=== PATIENT | male | born 1975 | race Caucasian/White ===

== ENCOUNTER 2025-03-01 16:49 | Emergency (ER) | payer BC, SELFPAY ==
[2025-03-01] VITALS (8 sets, daily range): BP systolic 170–241; BP diastolic 69–116; PULSE 76–101; RESP 16–20; TEMP 36.1–36.6; O2SAT 97–99; BMI 34.9
--- NOTE | 2025-03-01 17:06 | EX.ED.DYSGE1 ---
HPI History of Present Illness Chief Complaint: Hypertension Informant: patient Onset/Context/Timing Onset: Month(s) Context: Gradual Onset Timing: Continuous Quality: Dull, aching Location: Occiput and neck Worsened by: Nothing Relieved by: Drinking alcohol Narrative Narrative: Patient presents with headache and elevated blood pressure that was noticed today. Patient saw his sleep doctor who noticed his blood pressure was elevated to 230/130. Patient states that 2 weeks ago he had an episode where he had a black spot in his central vision of his right eye. Patient states that his right eye is still somewhat blurry but he is able to see everything. Patient admits to an occipital headache. Patient states it is dull and aching. Patient states it goes down into his neck. Patient also admits to some paresthesias and tingling into his toes on his feet bilaterally. Patient denies any weakness. [facility] Medical History (Updated 03/01/25 @ 21:[address] Eddy Escobar DO) Hypertension Diabetes Medical History no medical history no medical history Allergy/AdvReac Type Severity Reaction Status Date / Time No Known Allergies Allergy Verified 03/01/25 16:50 Surgical History S/P tendon repair Status post ORIF of fracture of ankle Social History Smoking Status: Never smoker ROS ROS ED Constitutional Constitutional ED: Denies chills or fever(s) Eyes Eyes: Reports blurry vision right and change in vision right ENT ENT ED: Denies rhinorrhea or sore throat Cardiovascular Cardiovascular: Denies chest pain or palpitations Respiratory/Chest Respiratory/Chest: Denies cough or dyspnea Gastrointestinal Gastrointestinal: Denies nausea or vomiting Genitourinary Genitourinary ED: Denies dysuria or hematuria Musculoskeletal Musculoskeletal: Reports neck pain; Denies back pain Integumentary Denies abscess or rash Neurologic Neurologic: Reports headache(s) and paresthesias RLE (Toes) and LLE (Toes); Denies weakness Allergic/Immunologic Allergic/Immunologic ED: Denies mouth swelling or urticaria EXAM Physical Exam Const Vital Signs: 03/01/25 16:50 03/01/25 17:55 03/01/25 18:00 Temperature 96.9 F L Temperature Source Temporal Pulse Rate 101 H 91 88 Respiratory Rate 20 H 16 16 Respiratory Effort Respiratory Pattern Blood Pressure 241/116 H 195/85 H 195/98 H Blood Pressure Mean 157 121 130 Pulse Ox 99 99 98 Oxygen Delivery Method Room Air Room Air Room Air 03/01/25 19:00 03/01/25 19:03 03/01/25 20:00 Temperature Temperature Source Pulse Rate 76 80 Respiratory Rate 18 16 Respiratory Effort Normal Respiratory Pattern Normal Blood Pressure 189/69 H 185/97 H Blood Pressure Mean 109 126 Pulse Ox 97 99 Oxygen Delivery Method Room Air Room Air 03/01/25 20:34 Temperature Temperature Source Pulse Rate Respiratory Rate Respiratory Effort Respiratory Pattern Blood Pressure 179/96 H Blood Pressure Mean 123 Pulse Ox Oxygen Delivery Method Positive well nourished and well developed Constitutional Narrative: BMI is 35.0. General Appearance ED: well developed and NAD HEENT Reports moist mucous membranes Neck supple and no JVD Resp normal respiratory effort and clear to auscultation bilaterally Cardio regular rate and regular rhythm GI non-tender and non-distended Palpation: soft Extremity normal to inspection General Extremety ED: Negative for edema or tenderness General Extremity: Negative for edema Neuro oriented x3, CN's II-XII intact bilaterally and no sensory deficits noted Sensorium / Orientation: alert Motor Exam: strength 5/5 throughout Psych mental status grossly normal MDM MDM MDM Narrative Medical decision making narrative: Differential diagnosis includes hypertensive emergency, hypertensive urgency, uncontrolled hypertension, electrolyte abnormality, cardiac dysrhythmia, cardiac ischemia, acute kidney injury, and anxiety. EKG will be obtained to assess for cardiac dysrhythmia and cardiac ischemia. Chest x-ray will be obtained to assess for pneumonia, bronchitis, and widened mediastinum. CBC will be obtained to assess for leukocytosis and anemia. Basic metabolic profile will be obtained to assess for electrolyte abnormality or renal function. High-sensitivity troponin will be obtained to assess for cardiac ischemia. Lab Data Attestation: I reviewed the patient's lab results. Lab results narrative: CBC was reviewed and was within normal limits. Basic metabolic profile was reviewed. Glucose was mildly elevated at 175. The remainder is within normal limits. Initial high-sensitivity troponin was reviewed and was normal at 18. 2-hour repeat high-sensitivity troponin was reviewed and was also normal at 18. Labs: Laboratory Results - last 24 hr 03/01/25 03/01/25 17:20 18:53 WBC 9.9 RBC 5.72 Hgb 16.1 Hct 46.9 MCV 82.0 MCH 28.1 MCHC 34.3 RDW Std Deviation 38.9 RDW Coeff of Elsa 13.1 Plt Count 260 MPV 11.1 Immature Gran % (Auto) 0.300 Neut % (Auto) 65.3 Lymph % (Auto) 25.3 [place] % (Auto) 6.5 Eos % (Auto) 1.9 Baso % (Auto) 0.7 Absolute Neuts (auto) 6.4 Absolute Lymphs (auto) 2.49 Nucleated RBC % 0 Sodium 135 Potassium 3.7 Chloride 99 Carbon Dioxide 22.5 Anion Gap 13 BUN 18 Creatinine 0.97 Estim Creat Clear Calc 119.02 Est GFR (MDRD) Non-Af 95 BUN/Creatinine Ratio 19.0 Glucose 175 H Calcium 9.1 Troponin T High Sens 18 Troponin T Hi Sens 2 Hr 18 Radiography Chest X-Ray - ED: 2 View, Read by ED Physician, Read by Radiologist and No Acute Disease Diagnostic Testing: Clinical Impression(s) from Imaging Studies Brain CT 03/01/25 17:12 IMPRESSION: No acute intracranial abnormality. Reading Location: [facility] Chest X-Ray 03/01/25 17:45 IMPRESSION: Mild bilateral pulmonary vascular congestion. Reading Location: [facility] CT scan of the brain was obtained. There is no acute intracranial abnormality. This was interpreted by the radiologist and was also independently reviewed by myself. PA and lateral chest x-ray was obtained. There are 2 views. On my independent interpretation, lung salas shows mild pulmonary vascular congestion. There is normal cardiac silhouette. Bony thorax is normal. There is no acute process noted. Radiologist also interpreted the x-ray and agrees. EKG Initial EKG: Attestation: I personally reviewed and interpreted this EKG as follows: Interpretation: Sinus Rhythm (87) and No Acute Injury Pattern Comments: EKG was obtained. On my independent interpretation, it showed a normal sinus rhythm with a rate of 87. CA interval, QRS interval, and QTc intervals were all normal. [place] was normal. There are no acute ST or T wave changes. Prior EKG tracings: not available for review Prior: No Prior Treatment and Re-Evaluation :: Patient was given a dose of labetalol here. Patient's blood pressure improved to 185/97. Patient given a dose of clonidine. Patient's blood pressure improved to 179/96. Patient was advised of his findings. Patient states he has an appointment with his primary care physician tomorrow morning at 7:50 AM. Since he has an appointment with his primary care physician tomorrow morning, patient will not be given any prescriptions for antihypertensives tonight. Patient was instructed to return if worse in any way. Patient understood and was agreeable with plan. All questions were answered. Discharge Plan Triage Chief Complaint: Hypertension ED Provider: Eddy Escobar Dx/Rx/DC Orders Clinical Impression: Hypertension, Tobacco use disorder Instructions: ED High Blood Pressure Hypertension Primary Care Provider: Derick Montes Referrals: Derick Montes MD [Primary Care Provider, Family Practice] - Keep Kim appointment Print Language: [place] Disposition Disposition: Home, Self Care
--- NOTE | 2025-03-01 17:12 | CT_ITS ---
PROCEDURE: BRAIN/HEAD WITHOUT CONTRAST 03/01/2025 REASON FOR EXAM: HYPERTENSION TECHNIQUE: Procedure Code: CTBR Modality: CT Procedure: BRAIN/HEAD WITHOUT CONTRAST Coronal and Sagittal reconstruction series were provided. One or more dose reduction techniques were used (e.g., Automated exposure control, adjustment of the mA and/or kV according to patient size, use of iterative reconstruction technique. FINDINGS: The ventricles are normal in size and midline in position. No evidence acute hemorrhage or infarction. No extra-axial blood or fluid collections. The paranasal sinuses and mastoid air cells are clear. Calvarial vault and skull base are intact. CT/Brain/Head without Contrast IMPRESSION: No acute intracranial abnormality. Reading Location: [id number]
--- NOTE | 2025-03-01 17:13 | EKG12_ITS ---
Test Reason : HTN Blood Pressure : */* mmHG Vent. Rate : 87 BPM Atrial Rate : 87 BPM P-R Int : 156 ms QRS Dur : 106 ms QT Int : 390 ms P-R-T Axes : 30 12 82 degrees QTcB Int : 469 ms Normal sinus rhythm Cannot rule out Inferior infarct , age undetermined Abnormal ECG Confirmed by YORDAN LÓPEZ, NIURKA ([id number]), assistant production editor TARAH VELEZ ([id number]) on 03/05/2025 6:18:36 AM Referred By: Confirmed By: NIURKA FARR MD
[2025-03-01 17:30] LABS: Hematocrit 46.9 % (40-54); Hemoglobin 16.1 g/dL (13.0-16.5); Immature Granulocytes Count 0.030 X10^3/uL (0.0-0.0); Mean Corp Hgb Conc 34.3 g/dL (32-36); Mean Corpuscular Volume 82.0 fL (80-94); Mean Platelet Vol. 11.1 fl (6.2-12.0); NRBC Flagged by Analyzer 0 % (0-5); Platelet Count 260 K/mm3 (150-450); RBC Distribution Width CV 13.1 % (11.6-14.6); RBC Distribution Width SD 38.9 fl (35.1-43.9); Red Blood Count 5.72 M/mm3 (4.6-6.2); White Blood Count 9.9 K/mm3 (4.4-11.0)
--- NOTE | 2025-03-01 17:45 | RAD_ITS ---
PROCEDURE: CHEST PA AND LATERAL 03/01/2025 REASON FOR EXAM: HYPERTENSION TECHNIQUE: Procedure Code: RADCXR Modality: DX Procedure: CHEST PA AND LATERAL COMPARISON: None FINDINGS: Hardware: Monitoring electrodes overlying chest wall. Heart: Heart size is mildly enlarged. Atherosclerotic calcification of aortic arch. Mediastinum: The mediastinal contour is unremarkable. Lungs: Bibasilar atelectasis. Mild bilateral pulmonary vascular congestion. Bones: Unremarkable RAD/Chest PA and Lateral IMPRESSION: Mild bilateral pulmonary vascular congestion. Reading Location: [id number]
[2025-03-01 17:55] LABS: Anion Gap 13 (5-15); BUN 18 mg/dL (4-19); BUN/Creat Ratio 19.0 RATIO (10-20); Calcium,Total 9.1 mg/dL (7.6-11.0); Carbon Dioxide 22.5 mmol/L (21.0-32.0); Chloride 99 mmol/L (98-108); Estimated Creatinine Clearance 119.02 ml/min (50-250); Glucose 175 mg/dL (70-99); Potassium 3.7 mmol/L (3.3-5.1)
[2025-03-01 18:13] LABS: Troponin T High Sensitivity 18 ng/L (<=22)
--- NOTE | 2025-03-01 19:06 | ED.RN ---
Pt reports he has a history of hypertension and diabetes. States hypertension had resolved after weight loss. He has not checked his BP at home however we went to the doctor today and he was hypertensive. Pt states they told him you need to go to the ED or we are going to call an ambulance
[2025-03-01 19:42] LABS: Troponin T High Sens 2 HR 18 ng/L (<=22)
== END 2025-03-01 21:43 | disposition home or self-care (01) ==
PROVIDERS: Emergency Provider Emergency Medicine; PCP Family Medicine; Visit Provider Emergency Medicine
DX: I10 Essential (primary) hypertension (principal); E11.9 Type 2 diabetes mellitus without complications
CPT/HCPCS: 70450; 71046; 80048; 84484; 85025; 93005; 96374; 99285; A4216

== ENCOUNTER → 2025-03-02 | Outpatient (CLI) | payer BC, SELFPAY ==
[2025-03-02 08:56] LABS: Mucous, Urine 0 SEEN /hpf (<or=2+); Red Blood Cells-Urine 0 SEEN /hpf (0-5); Squamous Epithelial Cells - UA 0 SEEN /hpf (0-5)
[2025-03-02 10:36] LABS: Color, Urine Yellow (Yellow); Glucose, Dipstick 50 mg/dl (Normal); Ketone-Dipstick 15 mg/dl (Negative); Leukocyte Esterase-Dipstick Negative /ul (Negative); Nitrite-Dipstick Negative (Negative); Occult Blood-Urine Negative /ul (Negative); Protein-Dipstick 30 mg/dl (Negative); Specific Gravity, Urine 1.020 (1.002-1.030); Urine Bilirubin Dipstick Negative (Negative)
[2025-03-02 11:14] LABS: AST(SGOT) 21 U/L (<=37); Alanine Aminotransfer ALT/SGPT 30 U/L (<=46); Albumin, Serum 4.4 g/dL (3.5-5.0); Alkaline Phosphatase 62 U/L (40-129); Anion Gap 13 (5-15); BUN 14 mg/dL (4-19); BUN/Creat Ratio 14.8 RATIO (10-20); Calcium,Total 9.4 mg/dL (7.6-11.0); Carbon Dioxide 24.9 mmol/L (21.0-32.0); Chloride 99 mmol/L (98-108); Cholesterol 186 mg/dL (<=200); Globulin 3.2 g/dL (2.2-4.2); Glucose 210 mg/dL (70-99); Low Density Lipoprotein Calc. 116 mg/dL; Magnesium 2.3 mg/dL (1.5-2.2); Potassium 4.3 mmol/L (3.3-5.1); Triglycerides 103 mg/dL; Very Low Density Lipoprotein 21 mg/dL (5-40); cholesterol:hdl ratio screen 3.76
== END | disposition home or self-care (01) ==
LOC: MFPLAB 08:53
PROVIDERS: PCP Family Medicine; Visit Provider Family Medicine
DX: R73.09 Other abnormal glucose (principal); I10 Essential (primary) hypertension; E04.1 Nontoxic single thyroid nodule
CPT/HCPCS: 36415; 80053; 80061; 81001; 83036; 83735; 84439; 84443; 86376; 86800

== ENCOUNTER → 2025-03-09 | Outpatient (CLI) | payer BC, SELFPAY ==
[2025-03-09 18:54] LABS: Anion Gap 13 (5-15); BUN 24 mg/dL (4-19); BUN/Creat Ratio 16.8 RATIO (10-20); Calcium,Total 9.6 mg/dL (7.6-11.0); Carbon Dioxide 26.3 mmol/L (21.0-32.0); Chloride 97 mmol/L (98-108); Glucose 178 mg/dL (70-99); Potassium 4.0 mmol/L (3.3-5.1)
== END | disposition home or self-care (01) ==
LOC: MFPLAB 17:02
PROVIDERS: PCP Family Medicine; Visit Provider Family Medicine
DX: I10 Essential (primary) hypertension (principal)
CPT/HCPCS: 36415; 80048

== ENCOUNTER → 2025-03-15 | Outpatient (CLI) | payer BC, SELFPAY ==
--- OUTSIDE RECORDS SUMMARY | 2025-03-15 17:02 | XMS RPT_ITS | CCD ---
Author Organization [facility] Care Team Providers Care Track Welder Name Role Phone Bassem KEENE Emiliano Snow Primary Care Provider [phone] ANKUSH OROZCO JR Referring Unav ailable BASSEM, EMILIANO H Primary Care Unavailable LANZINGER , ANKUSH ZAMBRANO Attending Unav ailable BASSEM, EMILIANO H Primary Care Unavailable LANZINGER JR, ANKUSH ZAMBRANO Attending Unav ailable BASSEM, EMILIANO H Primary Care Unavailable BASSEM, EMILIANO H Primary Care Unavailable BASSEM, EMILIANO H Primary Care Unavailable ELLEN CELIS, ANKUSH ZAMBRANO Attending Unav ailable LANZINGRAVI CELIS, ANKUSH ZAMBRANO Referring Unav ailable BASSEM, EMILIANO H Primary Care Unavailable LANZINGER , ANKUSH ZAMBRANO Attending Unav ailable LANZINGER , ANKUSH ZAMBRANO Admitting Unav ailable BASSEM, EMILIANO H Primary Care Unavailable LANZINGER , ANKUSH ZAMBRANO Referring Unav ailable BASSEM, EMILIANO H Primary Care Unavailable LANZINGER , ANKUSH ZAMBRANO Referring Unav ailable BASSEM, EMILIANO H Primary Care Unavailable Simon LÓPEZ, Dr. Derick Jane Primary Care Physician Dr. Eddy Escobar DO Emergency Department Physi alise Derick Montes Primary Care Unavailable Derick Montes Attending Unavailable Derick Montes Primary Care Unavailable Derick Montes Attending Unavailable Derick Montes Primary Care Unavailable Derick Montes Attending Unavailable Derick Montes Primary Care Unavailable Eddy Escobar Attending Unavailable Allergies Allergy Classification Reported Allergen(s) Allergy Type Date of Onset Reaction(s) Facility Aminoketones (1 source) buPROPion Drug Allergy 10-04-2006 Intolerance [facility] Work Phone: metFORMIN (1 source) metFORMIN Drug Allergy 12-20-2017 Diarrhea [facility] (9 sources) buPROPion; Translations: [BUPROPION] Drug Allergy 10-04-2006 Intolerance [facility] Work Phone: (9 sources) metFORMIN; Translations: [METFORMIN] Drug Allergy 12-20-2017 Diarrhea [facility] Medications Current Medications Medication Drug Class(es) Dates Sig (Normalized) Sig (Original) COMPOUNDED PRESCRIPTION (18 sources) Start: 01-25-2018 COMPOUNDED PRESCRIPTION CPAP machine with filters, mask, hose, nose pillow, etc. CPAP 13 cmH20 with humidification. 1 Each 0 01/25/2018 Active Start: 12-31-2014 COMPOUNDED PRE SCRIPTION CPAP 13 cmH20 with humidification. 1 Each 0 12/31/2014 Active CPAP (9 sources) Start: 06-19-2019 CPAP 1 Units b y MISCELLANEOUS route daily at bedtime. Travel CPAP machine with filters, mask, hose, nose pillow, etc. CPAP 13 cmH20 with humidification. 1 Device 0 06/19/2019 Active traMADol hydrochloride 50 mg oral tablet (7 sources) Opioid Agonist Start: 10-14-2023 take 1 tablet by mouth every eight hours as needed traMADol (ULTRAM) 50 mg tablet Indications: Laceration of left thumb with tendon involvement, initial encounter Take 1 tablet by mouth every 8 hours as needed for up to 3 days. 9 tablet 0 10/14/2023 Active Start: 12-20-2017 take 1-2 tablets by mouth every six hours as needed traMADol (ULTRAM) 50 mg tablet Indications: Chronic bilateral thoracic back pain TAKE 1-2 TABLETS BY MOUTH EVERY 6 HOURS NEEDED 60 tablet 2 12/20/2017 Active Problems Active Problems Problem Classification Problem Date Documented Da te Episodic/Chronic Diabetes mellitus without complication (9 sources) Type 2 diabetes mellitus; Translations: [Type 2 diabetes mellitus without complications] Onset: 09-07-2013 05-26-2021 Chronic Essential hypertension (11 sources) Benign essential hypertension; Translations: [Essential (primary) hypertension] Onset: 09-01-2013 05-28-2017 Chronic Open wounds of extremities (17 sources) Laceration of left thumb; Translations: [Laceration without foreign body of left thumb without damage to nail, initial encounter] Onset: 10-10-2023 10-12-2023 Episodic Other connective tissue disease (4 sources) Pain in left thumb; Translations: [Pain in left finger(s)] 10-18-2023 Episodic Other connective tissue disease (1 source) Pain in left finger(s); Translations: [Pain of left thumb] Onset: 10-18-2023 Episodic Other nutritional; endocrine; and metabolic disorders (9 sources) Obesity; Translations: [Obesity, unspecified] Onset: 10-29-2006 11-06-2008 Chronic Other nutritional; endocrine; and metabolic disorders (9 sources) Obese class II; Translations: [Obesity, unspecified] Onset: 06-20-2018 06-20-2018 Chronic Other nutritional; endocrine; and metabolic disorders (6 sources) H/O: diabetes mellitus; Translations: [Personal history of other endocrine, nutritional and metabolic disease] Onset: 10-14-2023 10-14-2023 Episodic Other upper respiratory disease (9 sources) Allergic rhinitis; Translations: [Allergic rhinitis, unspecified] Onset: 11-01-2007 11-06-2008 Chronic Residual codes; unclassified (9 sources) Obstructive sleep apnea syndrome; Translations: [Obstructive sleep apnea (adult) (pediatric)] Onset: 09-23-2004 06-20-2018 Chronic Residual codes; unclassified (6 sources) Nicotine user; Translations: [Tobacco use] Onset: 10-14-2023 10-14-2023 Episodic Substance-related disorders (1 source) Tobacco user; Translations: [Nicotine dependence, unspecified, uncomplicated] 03-01-2025 Chronic Past or Other Problems Problem Classification Problem Date Documented Date Episodic/Chronic Diabetes mellitus without complication (9 sources) Impaired fasting glycemia; Translations: [Impaired fasting glucose] Onset: 11-06-2008 Resolved: 09-07-2013 09-07-2013 Episodic Other lower respiratory disease (9 sources) Lung field abnormal; Translations: [Nonspecific abnormal findings on radiological and other examination of lung field] Onset: 10-02-2004 Resolved: 12-10-2016 12-10-2016 Episodic Other non-traumatic joint disorders (9 sources) Shoulder joint pain; Translations: [Pain in unspecified shoulder] Onset: 10-23-2010 Resolved: 12-10-2016 12-10-2016 Episodic Other non-traumatic joint disorders (9 sources) Soft tissue lesion of shoulder region; Translations: [Other specified joint disorders, unspecified shoulder] Onset: 10-23-2010 Resolved: 12-10-2016 12-10-2016 Episodic Residual codes; unclassified (9 sources) Cardiovascular event risk; Translations: [Other specified personal risk factors, not elsewhere classified] Onset: 07-05-2017 07-05-2017 Episodic Spondylosis; intervertebral disc disorders; other back problems (18 sources) Thoracic back pain; Translations: [Pain in thoracic spine] Onset: 10-17-2013 Resolved: 12-10-2016 12-10-2016 Episodic Results Test Name Value Interpretation Reference Range Facility Basic Metabolic Profile (BMP )on 03-09-2025 BUN/CRE 16.8 RATIO Normal 03-19 [facility] Comment on above: Order Comment: Order Date: 03/06/25Order Info: 0667- - BMP Performed By: #### L 500.2500 ####[facility] [address] [place], [address] Calcium [Mass/Vol] 9.6 mg/dL Normal 7.6-11.0 [facility] Comment on above: Order Comment: Order Date: 03/06/25Order Info: 0667- - BMP Performed By: #### L 500.2500 ####[facility] [address] [place], [address] Chloride [Moles/Vol] 97 mmol/L Low 98-108 [facility] Comment on above: Order Comment: Order Date: 03/06/25Order Info: 0667- - BMP Performed By: #### L 500.2500 ####[facility] [address] [place], [address] CO2 [Moles/Vol] 26.3 mmol/L Normal 21.0-32.0 [facility] Comment on above: Order Comment: Order Date: 03/06/25Order Info: 0667- - BMP Performed By: #### L 500.2500 ####[facility] [address] [place], [address] Creatinine [Mass/Vol] 1.44 mg/dL High 0.70-1.20 [facility] Comment on above: Order Comment: Order Date: 03/06/25Order Info: [id number] - BMP Performed By: #### L 500.2500 ####[facility] [address] [place], [address] GAP 13 Normal 5-15 [facility] Comment on above: Order Comment: Order Date: 03/06/25Order Info: 666-05 - BMP Performed By: #### L 500.2500 ####[facility] [address] [place], [address] GFR/1.73 sq M.predicted among non-blacks MDRD (S/P/Bld) [Vol rate/Area] 59 mL/min/{1.73_m2} Low >60 [facility] Comment on above: Order Comment: Order Date: 03/06/25Order Info: 666-05 - BMP Result Comment: mL/m in/1.73m2 CKD-EPI Creatinine Equation (2020) Performed By: #### L 500.2500 ####[facility] [address] [place], [address] Glucose [Mass/Vol] 178 mg/dL High 70-99 [facility] Comment on above: Order Comment: Order Date: 03/06/25Order Info: 666-05 - BMP Performed By: #### L 500.2500 ####[facility] [address] [place], [address] Potassium [Moles/Vol] 4.0 mmol/L Normal 3.3-5.1 [facility] Comment on above: Order Comment: Order Date: 03/06/25Order Info: 666-05 - BMP Performed By: #### L 500.2500 ####[facility] [address] [place], [address] Sodium [Moles/Vol] 136 mmol/L Normal 133-145 [facility] Comment on above: Order Comment: Order Date: 03/06/25Order Info: 666-05 - BMP Performed By: #### L 500.2500 ####[facility] [address] [place], [place], [address] Urea nitrogen [Mass/Vol] 24 mg/dL High 4-19 [facility] Comment on above: Order Comment: Order Date: 03/06/25Order Info: [id number] - BMP Performed By: #### L 500.2500 ####[facility] [address] [place], [place], [address] Thyroid Antibodieson 025 TG AB < 1.0 Normal 0.0-0.9 [facility] Comment on above: Result Comment: Thyr oglobulin Antibody measured by [employer] It should be noted that the presence of thyroglobulin antibodies may not be pathogenic nor diagnostic, especially at very low levels. The assay sole sewer hand has found that four percent of individuals without evidence of thyroid disease or autoimmunity will have positive TgAb levels up to 4 IU/mL. Performed at: [address] [id number] [employer] Painter: Kayden Richardson PhD, Phone: [phone] Performed By: #### L 400.0001, [id number] ####[facility] [address] [place], [place], [address] THYR PEROX AB 9 IU/mL Normal 0-34 [facility] Comment on above: Performed By: #### L 400.0001, [id number] ####[facility] [address] [place], [place], [address] Comprehensive Metabolic Prof ilon 03-02-2025 Albumin [Mass/Vol] 4.4 g/dL Normal 3.5-5.0 [facility] Comment on above: Order Comment: Order Date: 03/02/25Order Info: [id number] - CMPOrder Info: [id number] - LIPIDOrder Info: [id number] - MGOrder Info: [id number] - TSHOrder Info: [id number] - T4F Performed By: #### L 501.9520, L501.5200, L500.4050, L501.9985, L500.4100 ####[facility] [address] [place], [address] Albumin/Globulin [Mass ratio] 1.4 {ratio} Normal 0.9-2.4 [facility] Comment on above: Order Comment: Order Date: 03/02/25Order Info: [id number] - CMPOrder Info: [id number] - LIPIDOrder Info: [id number] - MGOrder Info: [id number] - TSHOrder Info: [id number] - T4F Performed By: #### L 501.9520, L501.5200, L500.4050, L501.9985, L500.4100 ####[facility] [address] [place], [address] ALK PHOS 62 U/L Normal 40-129 [facility] Comment on above: Order Comment: Order Date: 03/02/25Order Info: 86-1 - CMPOrder Info: [id number] - LIPIDOrder Info: [id number] - MGOrder Info: [id number] - TSHOrder Info: [id number] - T4F Performed By: #### L 501.9520, L501.5200, L500.4050, L501.9985, L500.4100 ####[facility] [address] [place], [address] ALT [Catalytic activity/Vol] 30 U/L Normal <=46 [facility] Comment on above: Order Comment: Order Date: 03/02/25Order Info: [id number] - CMPOrder Info: [id number] - LIPIDOrder Info: [id number] - MGOrder Info: [id number] - TSHOrder Info: [id number] - T4F Performed By: #### L 501.9520, L501.5200, L500.4050, L501.9985, L500.4100 ####[facility] [address] [place], [address] AST [Catalytic activity/Vol] 21 U/L Normal <=37 [facility] Comment on above: Order Comment: Order Date: 03/02/25Order Info: [id number] - CMPOrder Info: [id number] - LIPIDOrder Info: [id number] - MGOrder Info: [id number] - TSHOrder Info: [id number] - T4F Performed By: #### L 501.9520, L501.5200, L500.4050, L501.9985, L500.4100 ####[facility] [address] [place], [address] Bilirubin [Mass/Vol] 0.60 mg/dL Normal 0.00-1.30 [facility] Comment on above: Order Comment: Order Date: 03/02/25Order Info: 86-1 - CMPOrder Info: [id number] - LIPIDOrder Info: [id number] - MGOrder Info: 6-3 - TSHOrder Info: [id number] - T4F Performed By: #### L 501.9520, L501.5200, L500.4050, L501.9985, L500.4100 ####[facility] [address] [place], [address] BUN/CRE 14.8 RATIO Normal 10-20 [facility] Comment on above: Order Comment: Order Date: 03/02/25Order Info: 86-1 - CMPOrder Info: [id number] - LIPIDOrder Info: [id number] - MGOrder Info: [id number] - TSHOrder Info: 3024-7 - T4F Performed By: #### L 501.9520, L501.5200, L500.4050, L501.9985, L500.4100 ####[facility] [address] [place], [address] Calcium [Mass/Vol] 9.4 mg/dL Normal 7.6-11.0 [facility] Comment on above: Order Comment: Order Date: 03/02/25Order Info: 86-1 - CMPOrder Info: [id number] - LIPIDOrder Info: [id number] - MGOrder Info: [id number] - TSHOrder Info: 3024-7 - T4F Performed By: #### L 501.9520, L501.5200, L500.4050, L501.9985, L500.4100 ####[facility] [address] [place], [address] Chloride [Moles/Vol] 99 mmol/L Normal 98-108 [facility] Comment on above: Order Comment: Order Date: 03/02/25Order Info: [id number] - CMPOrder Info: [id number] - LIPIDOrder Info: [id number] - MGOrder Info: [id number] - TSHOrder Info: 3024-7 - T4F Performed By: #### L 501.9520, L501.5200, L500.4050, L501.9985, L500.4100 ####[facility] [address] [place], [address] CO2 [Moles/Vol] 24.9 mmol/L Normal 21.0-32.0 [facility] Comment on above: Order Comment: Order Date: 03/02/25Order Info: [id number] - CMPOrder Info: [id number] - LIPIDOrder Info: [id number] - MGOrder Info: [id number] - TSHOrder Info: 3024-7 - T4F Performed By: #### L 501.9520, L501.5200, L500.4050, L501.9985, L500.4100 ####[facility] [address] [place], [address] Creatinine [Mass/Vol] 0.95 mg/dL Normal 0.70-1.20 [facility] Comment on above: Order Comment: Order Date: 03/02/25Order Info: [id number] - CMPOrder Info: [id number] - LIPIDOrder Info: [id number] - MGOrder Info: [id number] - TSHOrder Info: [id number] - T4F Performed By: #### L 501.9520, L501.5200, L500.4050, L501.9985, L500.4100 ####[facility] [address] [place], [address] GAP 13 Normal 5-15 [facility] Comment on above: Order Comment: Order Date: 03/02/25Order Info: [id number] - CMPOrder Info: [id number] - LIPIDOrder Info: [id number] - MGOrder Info: [id number] - TSHOrder Info: 302-7 - T4F Performed By: #### L 501.9520, L501.5200, L500.4050, L501.9985, L500.4100 ####[facility] [address] [place], [address] GFR/1.73 sq M.predicted among non-blacks MDRD (S/P/Bld) [Vol rate/Area] 97 mL/min/{1.73_m2} Normal >60 [facility] Comment on above: Order Comment: Order Date: 03/02/25Order Info: 785-1 - CMPOrder Info: [id number] - LIPIDOrder Info: [id number] - MGOrder Info: [id number] - TSHOrder Info: 302-7 - T4F Result Comment: mL/m in/1.73m2 CKD-EPI Creatinine Equation (2020) Performed By: #### L 501.9520, L501.5200, L500.4050, L501.9985, L500.4100 ####[facility] [address] [place], [address] Globulin (S) [Mass/Vol] 3.2 g/dL Normal 2.2-4.2 [facility] Comment on above: Order Comment: Order Date: 03/02/25Order Info: 86-1 - CMPOrder Info: [id number] - LIPIDOrder Info: [id number] - MGOrder Info: [id number] - TSHOrder Info: [id number] - T4F Performed By: #### L 501.9520, L501.5200, L500.4050, L501.9985, L500.4100 ####[facility] [address] [place], [address] Glucose [Mass/Vol] 210 mg/dL High 70-99 [facility] Comment on above: Order Comment: Order Date: 03/02/25Order Info: [id number] - CMPOrder Info: [id number] - LIPIDOrder Info: [id number] - MGOrder Info: [id number] - TSHOrder Info: 3024-7 - T4F Performed By: #### L 501.9520, L501.5200, L500.4050, L501.9985, L500.4100 ####[facility] [address] [place], [address] Potassium [Moles/Vol] 4.3 mmol/L Normal 3.3-5.1 [facility] Comment on above: Order Comment: Order Date: 03/02/25Order Info: 785- - CMPOrder Info: [id number] - LIPIDOrder Info: [id number] - MGOrder Info: [id number] - TSHOrder Info: [id number] - T4F Performed By: #### L 501.9520, L501.5200, L500.4050, L501.9985, L500.4100 ####[facility] [address] [place], [address] Sodium [Moles/Vol] 137 mmol/L Normal 133-145 [facility] Comment on above: Order Comment: Order Date: 03/02/25Order Info: 07-1 - CMPOrder Info: [id number] - LIPIDOrder Info: [id number] - MGOrder Info: [id number] - TSHOrder Info: [id number] - T4F Performed By: #### L 501.9520, L501.5200, L500.4050, L501.9985, L500.4100 ####[facility] [address] [place], [address] T PROT 7.6 g/dL Normal 5.9-8.4 [facility] Comment on above: Order Comment: Order Date: 03/02/25Order Info: 86-1 - CMPOrder Info: [id number] - LIPIDOrder Info: [id number] - MGOrder Info: 3 - TSHOrder Info: 7 - T4F Performed By: #### L 501.9520, L501.5200, L500.4050, L501.9985, L500.4100 ####[facility] [address] [place], [address] Urea nitrogen [Mass/Vol] 14 mg/dL Normal - [facility] Comment on above: Order Comment: Order Date: 03/02/25Order Info: 785-1 - CMPOrder Info: [id number] - LIPIDOrder Info: [id number] - MGOrder Info: [id number] - TSHOrder Info: [id number] - T4F Performed By: #### L 501.9520, L501.5200, L500.4050, L501.9985, L500.4100 ####[facility] [address] [place], [address] Hemoglobin A1con 03-02-2025 HbA1c (Bld) [Mass fraction] 11.1 % High <=5.6 [facility] Comment on above: Order Comment: Order Date: 03/02/25Order Info: [id number] - A1C Result Comment: Norm al < 5.7 % Prediabetic 5.7 - 6.4 % Diabetic >or= 6.5 % Please note range changes. Performed By: #### L 501.9520, L501.5200, L500.4050, L501.9985, L500.4100 ####[facility] [address] [place], [address] Lipid Profileon 03-02-2025 CHOL:HDL 3.76 Normal [facility] Comment on above: Order Comment: Order Date: 03/02/25Order Info: [id number] - CMPOrder Info: [id number] - LIPIDOrder Info: [id number] - MGOrder Info: [id number] - TSHOrder Info: [id number] - T4F Performed By: #### L 501.9520, L501.5200, L500.4050, L501.9985, L500.4100 ####[facility] [address] [place], [address] Cholesterol [Mass/Vol] 186 mg/dL Normal <=200 [facility] Comment on above: Order Comment: Order Date: 03/02/25Order Info: [id number] - CMPOrder Info: [id number] - LIPIDOrder Info: [id number] - MGOrder Info: [id number] - TSHOrder Info: 3024-7 - T4F Result Comment: Chol esterol level, Desirable <200 mg/dL Borderline high cholesterol 200-239 mg/dL High cholesterol >=240 mg/dL Recommendations of the NCEP Adult Treatment Panel for the following risk-cutoff thresholds for the [place] population. Performed By: #### L 501.9520, L501.5200, L500.4050, L501.9985, L500.4100 ####[facility] [address] [place], [address] Cholesterol in HDL [Mass/Vol] 50 mg/dL Normal [facility] Comment on above: Order Comment: Order Date: 03/02/25Order Info: 785-1 - CMPOrder Info: [id number] - LIPIDOrder Info: [id number] - MGOrder Info: [id number] - TSHOrder Info: 3024-7 - T4F Result Comment: Connie onal Cholesterol Education Program (NCEP) guidelines: <40 mg/dL: Low HDL-cholesterol (major risk factor for CHD) >= 60 mg/dL: High HDL-cholesterol (negative risk factor for CHD) HDL-cholesterol is affected by a number of factors, e.g. smoking, exercise, hormones, sex and age. Performed By: #### L 501.9520, L501.5200, L500.4050, L501.9985, L500.4100 ####[facility] [address] [place], [address] Cholesterol in LDL [Mass/Vol] 116 mg/dL Normal [facility] Comment on above: Order Comment: Order Date: 03/02/25Order Info: 86-1 - CMPOrder Info: [id number] - LIPIDOrder Info: [id number] - MGOrder Info: 3 - TSHOrder Info: 7 - T4F Result Comment: Bord pbmjcn=423-495 mg/dL Higher Equo=804 mg/dL or greater Friedwald Equation for LDL-C Performed By: #### L 501.9520, L501.5200, L500.4050, L501.9985, L500.4100 ####[facility] [address] [place], [address] Cholesterol in VLDL [Mass/Vol] 21 mg/dL Normal 5-40 [facility] Comment on above: Order Comment: Order Date: 03/02/25Order Info: 785-1 - CMPOrder Info: - LIPIDOrder Info: [id number] - MGOrder Info: [id number] - TSHOrder Info: [id number] - T4F Performed By: #### L 501.9520, L501.5200, L500.4050, L501.9985, L500.4100 ####[facility] [address] [place], [address] Triglyceride [Mass/Vol] 103 mg/dL Normal [facility] Comment on above: Order Comment: Order Date: 03/02/25Order Info: 785- - CMPOrder Info: - LIPIDOrder Info: [id number] - MGOrder Info: 3 - TSHOrder Info: [id number] - T4F Result Comment: The drugs N-Acetylcysteine and Metamizole may falsely depress this assay. Normal range: <150 mg/dL Borderline High: 150-199 mg/dL High: 200-499 mg/dL Very High: >500 mg/dL Performed By: #### L 501.9520, L501.5200, L500.4050, L501.9985, L500.4100 ####[facility] [address] [place], [address] Magnesiumon 10-03-2025 Magnesium [Mass/Vol] 2.3 mg/dL High 1.5-2.2 [facility] Comment on above: Order Comment: Order Date: 03/02/25Order Info: [id number] - CMPOrder Info: [id number] - LIPIDOrder Info: [id number] - MGOrder Info: [id number] - TSHOrder Info: [id number] - T4F Performed By: #### L 501.9520, L501.5200, L500.4050, L501.9985, L500.4100 ####[facility] [address] [place], [address] T4 Free Directon 03-02-2025 T4 FREE DIRECT 1.30 ng/dL Normal 0.76-1.46 [facility] Comment on above: Order Comment: Order Date: 03/02/25Order Info: 785-1 - CMPOrder Info: [id number] - LIPIDOrder Info: [id number] - MGOrder Info: [id number] - TSHOrder Info: [id number] - T4F Performed By: #### L 506.0400 ####[facility] [address] [place], [address] Thyroid Stim Hormone (TSH)on 03-02-2025 TSH 1.880 uIU/mL Normal 0.300-4.200 [facility] Comment on above: Order Comment: Order Date: 03/02/25Order Info: 86-1 - CMPOrder Info: [id number] - LIPIDOrder Info: [id number] - MGOrder Info: [id number] - TSHOrder Info: 3024-7 - T4F Performed By: #### L 501.9520, L501.5200, L500.4050, L501.9985, L500.4100 ####[facility] [address] [place], [address] Urinalysis, Completeon 03-02 BACTERIA 0 SEEN Normal None Seen [facility] Comment on above: Order Comment: Urine , Random Performed By: #### L 400.0001, L3300.6750 #### [facility] Laboratory [address] [place], [address] EPI,SQUAMOUS 0 SEEN Normal 0-5 [facility] Comment on above: Order Comment: Urine , Random Performed By: #### L 400.0001, L3300.6750 #### [facility] Laboratory [address] [place], [address] Mucus Ql (Urine sed) 0 SEEN Normal [facility] Comment on above: Order Comment: Urine , Random Performed By: #### L 400.0001, L3300.6750 #### [facility] Laboratory [address] [place], [address] RBC 0 SEEN Normal 0-[address] [place] [address] Comment on above: Order Comment: Urine , Random Performed By: #### L 400.0001, L3300.6750 #### [facility] Laboratory [address] [place], [address] WBC 0 SEEN Normal 0-[address] [place] [address] Comment on above: Order Comment: Urine , Random Performed By: #### L 400.0001, L3300.6750 #### [facility] Laboratory [address] [place], [address] 12 Lead EKGon 03-01-2025 12 Lead EKG [facility] Cardiovascular Services [address] [place] [address] 12 Lead EKG 03/01/25 1725 MR#: [id number] Acct: [id number] Name: RACHID BENDER Rep #: [id number] : 1975 49 From: Libra Lacy MD Attending Dr: Status: DEP ER Ordering Dr: Eddy Escobar DO Date: 03/01/25 Location: ED Sex: M C Admitted: Test Reason : HTN Blood Pressure : */* mmHG Vent. Rate : 87 BPM Atrial Rate : 87 BPM P-R Int : 156 ms QRS Dur : 106 ms QT Int : 390 ms P-R-T Axes : 30 12 82 degrees QTcB Int : 469 ms Normal sinus rhythm Cannot rule out Inferior infarct , age undetermined Abnormal ECG Confirmed by YORDAN LÓPEZ, NIURKA ([id number]), staff editor TARAH VELEZ ([id number]) on 03/05/2025 6:18:36 AM Referred By: Confirmed By: NIURKA LACY MD 03/05/25617 Date Libra Lacy MD CC: Dr. Eddy Escobar, DO; Dr. Derick Montes MD Signed Normal [facility] Absolute lymphocyte countOrd ered By: Eddy Escobar on 03-01-2025 Lymphocytes Auto (Unsp spec) [#/Vol] 2.49 10*3/uL 0.83-4.51 [facility] Absolute neutrophil countOrd ered By: Eddy Escobar on 03-01-2025 Neutrophils (Bld) [#/Vol] 6.4 10*3/uL 2.0-7.7 [facility] Anion gap in Serum or Plasma Ordered By: Eddy Escobar on 03-01-2025 Anion gap [Moles/Vol] 13 mmol/L - [facility] Automated lymphocyte count a s percentage of total leukocytesOrdered By: Eddy Escobar on 03-01-2025 Lymphocytes/100 WBC Auto (Unsp spec) 25.3 % -41 [facility] BUN/creatinine ratioOrdered By: Eddy Escobar on 03-01-2025 Urea nitrogen/Creatinine [Mass ratio] 19.0 mg/mg - [facility] Basic Metabolic Profile (BMP )on 03-01-2025 BUN/CRE 19.0 RATIO Normal 03-19 [facility] Comment on above: Performed By: #### L 500.2500, L100.0100 #### [facility] Laboratory [address] [place], [address] Calcium [Mass/Vol] 9.1 mg/dL Normal 7.6-11.0 [facility] Comment on above: Performed By: #### L 500.2500, L100.0100 #### [facility] Laboratory [address] [place], [address] Chloride [Moles/Vol] 99 mmol/L Normal 98-108 [facility] Comment on above: Performed By: #### L 500.2500, L100.0100 #### [facility] Laboratory [address] [place], [address] CO2 [Moles/Vol] 22.5 mmol/L Normal 21.0-32.0 [facility] Comment on above: Performed By: #### L 500.2500, L100.0100 #### [facility] Laboratory [address] [place], [address] Creatinine [Mass/Vol] 0.97 mg/dL Normal 0.70-1.20 [facility] Comment on above: Performed By: #### L 500.2500, L100.0100 #### [facility] Laboratory [address] [place], [address] ECRCL 119.02 ml/min Normal 50-250 [facility] Comment on above: Performed By: #### L 500.2500, L100.0100 #### [facility] Laboratory [address] [place], [address] GAP 13 Normal 5-15 [facility] Comment on above: Performed By: #### L 500.2500, L100.0100 #### [facility] Laboratory [address] [place], [address] GFR/1.73 sq M.predicted among non-blacks MDRD (S/P/Bld) [Vol rate/Area] 95 mL/min/{1.73_m2} Normal >60 [facility] Comment on above: Result Comment: mL/m in/1.73m2 CKD-EPI Creatinine Equation (2020) Performed By: #### L 500.2500, L100.0100 #### [facility] Laboratory [address] [place], [address] Glucose [Mass/Vol] 175 mg/dL High 70-99 [facility] Comment on above: Performed By: #### L 500.2500, L100.0100 #### [facility] Laboratory [address] [place], [address] Potassium [Moles/Vol] 3.7 mmol/L Normal 3.3-5.1 [facility] Comment on above: Performed By: #### L 500.2500, L100.0100 #### [facility] Laboratory [address] [place], [address] Sodium [Moles/Vol] 135 mmol/L Normal 133-145 [facility] Comment on above: Performed By: #### L 500.2500, L100.0100 #### [facility] Laboratory [address] [place], [address] Urea nitrogen [Mass/Vol] 18 mg/dL Normal 4-19 [facility] Comment on above: Performed By: #### L 500.2500, L100.0100 #### [facility] Laboratory [address] [place], [address] Basophil percentageOrdered B y: Eddy Escobar on 03-01-2025 Basophils/100 WBC (Bld) 0.7 % 0-1 [facility] Brain/Head without Contrasto n 03-01-2025 Brain/Head without Contrast [facility] Imaging Services [address] [place] [address] Brain/Head without Contrast MR#: [id number] Acct: [id number] Name: MARYCRUZRACHID Nlela Rep #: [id number] : 1975 M 49 From: Claudio Diehl MD PCP: Dr. Derick Montes MD Status: PRE ER Study: Brain/Head without Contrast Date of Exam: 07/25 Exam# [id number] Ordering Dr: Eddy Escobar DO PROCEDURE: BRAIN/HEAD WITHOUT CONTRAST 03/01/2025 REASON FOR EXAM: HYPERTENSION TECHNIQUE: Procedure Code: CTBR Modality: CT Procedure: BRAIN/HEAD WITHOUT CONTRAST Coronal and Sagittal reconstruction series were provided. One or more dose reduction techniques were used (e.g., Automated exposure control, adjustment of the mA and/or kV according to patient size, use of iterative reconstruction technique. FINDINGS: The ventricles are normal in size and midline in position. No evidence acute hemorrhage or infarction. No extra-axial blood or fluid collections. The paranasal sinuses and mastoid air cells are clear. Calvarial vault and skull base are intact. CT/Brain/Head without Contrast IMPRESSION: No acute intracranial abnormality. Reading Location: [id number] CC: Dr. Eddy Escobar DO; Dr. Derick Montes MD Custodial Services Manager: Signed Normal [facility] CBC W/Diff, Automatedon 10-0 Absolute Lymph 2.49 X10 3/uL Normal 0.83-4.51 [facility] Comment on above: Performed By: #### L 500.2500, L100.0100 #### [facility] Laboratory [address] [place], [address] Absolute Neut 6.4 X10 3/uL Normal 2.0-7.7 [facility] Comment on above: Performed By: #### L 500.2500, L100.0100 #### [facility] Laboratory [address] [facility] [address] Basophils/100 WBC (Bld) 0.7 % Normal 0-1 [facility] Comment on above: Performed By: #### L 500.2500, L100.0100 #### [facility] Laboratory [address] [place], [address] Eosinophils/100 WBC (Bld) 1.9 % Normal 0-5 [facility] Comment on above: Performed By: #### L 500.2500, L100.0100 #### [facility] Laboratory [address] [place], [address] Erythrocyte distribution width (RBC) [Ratio] 13.1 % Normal 11.6-14.6 [facility] Comment on above: Performed By: #### L 500.2500, L100.0100 #### [facility] Laboratory [address] [place], [address] Hematocrit (Bld) [Volume fraction] 46.9 % Normal 40-54 [facility] Comment on above: Performed By: #### L 500.2500, L100.0100 #### [facility] Laboratory [address] [place], [address] Hemoglobin (Bld) [Mass/Vol] 16.1 g/dL Normal 13.0-16.5 [facility] Comment on above: Performed By: #### L 500.2500, L100.0100 #### [facility] Laboratory [address] [place], [address] IG% 0.300 Normal 0.0-0.9 [facility] Comment on above: Result Comment: IG% - Immature Granulocytes (promyelocytes, myelocytes and metamyelocytes) > 1% indicates that a LEFT SHIFT is Present. Performed By: #### L 500.2500, L100.0100 #### [facility] Laboratory [address] [place], [address] Lymphocytes/100 WBC (Bld) 25.3 % Normal 19-41 [facility] Comment on above: Performed By: #### L 500.2500, L100.0100 #### [facility] Laboratory [address] [place], [address] MCH (RBC) [Entitic mass] 28.1 pg Normal 27.0-32.0 [facility] Comment on above: Performed By: #### L 500.2500, L100.0100 #### [facility] Laboratory [address] [place], [address] MCHC (RBC) [Mass/Vol] 34.3 g/dL Normal 32-36 [facility] Comment on above: Performed By: #### L 500.2500, L100.0100 #### [facility] Laboratory [address] [place], [address] MCV (RBC) [Entitic vol] 82.0 fL Normal 80-94 [facility] Comment on above: Performed By: #### L 500.2500, L100.0100 #### [facility] Laboratory [address] [place], [address] Monocytes/100 WBC (Bld) 6.5 % Normal 0-10 [facility] Comment on above: Performed By: #### L 500.2500, L100.0100 #### [facility] Laboratory [address] [place], [address] Neutrophils/100 WBC (Bld) 65.3 % Normal 47-70 [facility] Comment on above: Performed By: #### L 500.2500, L100.0100 #### [facility] Laboratory [address] [place], [address] Nucleated RBC (Bld) [#/Vol] 0 10*3/uL Normal 0-5 [facility] Comment on above: Performed By: #### L 500.2500, L100.0100 #### [facility] Laboratory [address] [place], [address] Platelet mean volume (Bld) [Entitic vol] 11.1 fL Normal 6.2-12.0 [facility] Comment on above: Performed By: #### L 500.2500, L100.0100 #### [facility] Laboratory [address] [place], [address] Platelets (Bld) [#/Vol] 260 10*3/uL Normal 150-450 [facility] Comment on above: Performed By: #### L 500.2500, L100.0100 #### [facility] Laboratory [address] [place], [address] RBC (Bld) [#/Vol] 5.72 10*6/uL Normal 4.6-6.2 [facility] Comment on above: Performed By: #### L 500.2500, L100.0100 #### [facility] Laboratory [address] [place], [address] RDW SD 38.9 fl Normal 35.1-43.9 [facility] Comment on above: Performed By: #### L 500.2500, L100.0100 #### [facility] Laboratory [address] [place], [address] WBC (Bld) [#/Vol] 9.9 10*3/uL Normal 4.4-11.0 [facility] Comment on above: Performed By: #### L 500.2500, L100.0100 #### [facility] Laboratory [address] [place], [address] Carbon dioxide, total [Moles /volume] in Central venous bloodOrdered By: Eddy Escobar on 03-01-2025 CO2 [Moles/Vol] 22.5 mmol/L 21.0-32.0 [facility] Chest PA and Lateralon 03-01 Chest PA and Lateral [facility] Imaging Services [address] [place] [address] Chest PA and Lateral MR#: [id number] Acct: [id number] Name: RACHID BENDER Rep #: [id number] : 1975 M 49 From: Hilario Crane MD PCP: Dr. Derick Montes MD Status: PRE ER Study: Chest PA and Lateral Date of Exam: 03/01/25 Exam# [id number] Ordering Dr: Eddy Escobar DO PROCEDURE: CHEST PA AND LATERAL 03/01/2025 REASON FOR EXAM: HYPERTENSION TECHNIQUE: Procedure Code: RADCXR Modality: DX Procedure: CHEST PA AND LATERAL COMPARISON: None FINDINGS: Hardware: Monitoring electrodes overlying chest wall. Heart: Heart size is mildly enlarged. Atherosclerotic calcification of aortic arch. Mediastinum: The mediastinal contour is unremarkable. Lungs: Bibasilar atelectasis. Mild bilateral pulmonary vascular congestion. Bones: Unremarkable RAD/Chest PA and Lateral IMPRESSION: Mild bilateral pulmonary vascular congestion. Reading Location: [id number] CC: Dr. Eddy Escobar DO; Dr. Derick Montes MD Custodial Services Manager: Signed Normal [facility] Chloride assayOrdered By: Ravi Escobar on 03-01-2025 Chloride [Moles/Vol] 99 mmol/L 98-108 [facility] Emergency Department Summary on 03-01-2025 Emergency Department Summary [facility] Medical Records Department [address] [place] [address] Emergency Department Summary 03/01/25 MR#: [id number] Acct: [id number] Name: RACHID BENDER Rep #: [id number] : 1975 49 From: Eddy Escobar DO PCP: Dr. Derick Montes MD Status:DEP ER Location: ED HPI History of Present Illness Chief Complaint: Hypertension Informant: patient Onset/Context/Timin g Onset: Month(s) Context: Gradual Onset Timing: Continuous Quality: Dull, aching Location: Occiput and neck Worsened by: Nothing Relieved by: Drinking alcohol Narrative Narrative: Patient presents with headache and elevated blood pressure that was noticed today. Patient saw his sleep doctor who noticed his blood pressure was elevated to 230/130. Patient states that 2 weeks ago he had an episode where he had a black spot in his central vision of his right eye. Patient states that his right eye is still somewhat blurry but he is able to see everything. Patient admits to an occipital headache. Patient states it is dull and aching. Patient states it goes down into his neck. Patient also admits to some paresthesias and tingling into his toes on his feet bilaterally. Patient denies any weakness. [facility] Medical History (Updated 03/01/25 @ 21:[address] Eddy Escobar DO) Hypertension Diabetes Medical History no medical history no medical history Allergy/AdvReac Type Severity Reaction Status Date / Time No Known Allergies Allergy Verified 03/01/25 16:50 Surgical History S/P tendon repair Status post ORIF of fracture of ankle Social History Smoking Status: Never smoker ROS ROS ED Constitutional Constitutional ED: Denies chills or fever(s) Eyes Eyes: Reports blurry vision right and change in vision right ENT ENT ED: Denies rhinorrhea or sore throat Cardiovascular Cardiovascular: Denies chest pain or palpitations Respiratory/Chest Respiratory/Chest: Denies cough or dyspnea Gastrointestinal Gastrointestinal: Denies nausea or vomiting Genitourinary Genitourinary ED: Denies dysuria or hematuria Musculoskeletal Musculoskeletal: Reports neck pain; Denies back pain Integumentary Denies abscess or rash Neurologic Neurologic: Reports headache(s) and paresthesias RLE (Toes) and LLE (Toes); Denies weakness Allergic/Immunologi c Allergic/Immunologi c ED: Denies mouth swelling or urticaria EXAM Physical Exam Const Vital Signs: 03/01/25 16:50 03/01/25 17:55 03/01/25 18:00 Temperature 96.9 F L Temperature Source Temporal Pulse Rate 101 H 91 88 Respiratory Rate 20 H 16 16 Respiratory Effort Respiratory Pattern Blood Pressure 241/116 H 195/85 H 195/98 H Blood Pressure Mean 157 121 130 Pulse Ox 99 99 98 Oxygen Delivery Method Room Air Room Air Room Air 03/01/25 19:00 03/01/25 19:03 03/01/25 20:00 Temperature Temperature Source Pulse Rate 76 80 Respiratory Rate 18 16 Respiratory Effort Normal Respiratory Pattern Normal Blood Pressure 189/69 H 185/97 H Blood Pressure Mean 109 126 Pulse Ox 97 99 Oxygen Delivery Method Room Air Room Air 03/01/25 20:34 Temperature Temperature Source Pulse Rate Respiratory Rate Respiratory Effort Respiratory Pattern Blood Pressure 179/96 H Blood Pressure Mean 123 Pulse Ox Oxygen Delivery Method Positive well nourished and well developed Constitutional Narrative: BMI is 35.0. General Appearance ED: well developed and NAD HEENT Reports moist mucous membranes Neck supple and no JVD Resp normal respiratory effort and clear to auscultation bilaterally Cardio regular rate and regular rhythm GI non-tender and non-distended Palpation: soft Extremity normal to inspection General Extremety ED: Negative for edema or tenderness General Extremity: Negative for edema Neuro oriented x3, CN's II-XII intact bilaterally and no sensory deficits noted Sensorium / Orientation: alert Motor Exam: strength 5/5 throughout Psych mental status grossly normal MDM MDM MDM Narrative Medical decision making narrative: Differential diagnosis includes hypertensive emergency, hypertensive urgency, uncontrolled hypertension, electrolyte abnormality, cardiac dysrhythmia, cardiac ischemia, acute kidney injury, and anxiety. EKG will be obtained to assess for cardiac dysrhythmia and cardiac ischemia. Chest x- ray will be obtained to assess for pneumonia, bronchitis, and widened mediastinum. CBC will be obtained to assess for leukocytosis and anemia. Basic metabolic profile will be obtained to assess for electrolyte abnormality or renal function. High-sensitivity troponin will be obtained to assess for car (more content not included)... Normal [facility] Eosinophil percentageOrdered By: Eddy Escobar on 03-01-2025 Eosinophils/100 WBC (Bld) 1.9 % 0-5 [facility] Erythrocyte distribution wid th ratioOrdered By: Eddy Escobar on 03-01-2025 Erythrocyte distribution width (RBC) [Ratio] 13.1 % 11.6-14.6 [facility] Erythrocyte distribution wid th standard deviationOrdered By: Eddy Escobar on 03-01-2025 Erythrocyte distribution width (RBC) [Ratio] 38.9 fl 35.1-43.9 [facility] Glomerular filtration rate ( GFR) estimation/1.73 sq m using serum, plasma, or whole bOrdered By: Eddy Escobar on 03-01-2025 GFR/1.73 sq M.predicted among non-blacks MDRD (S/P/Bld) [Vol rate/Area] 95 mL/min/{1.73_m2} >60 [facility] Comment on above: mL/min/1.73m2 CKD-EP I Creatinine Equation (2020) Hematocrit Auto (Bld) [Volum e fraction]Ordered By: Eddy Escobar on 03-01-2025 Hematocrit (Bld) [Volume fraction] 46.9 % 40-54 [facility] Hemoglobin measurementOrdere d By: Eddy Escobar on 03-01-2025 Hemoglobin (Bld) [Mass/Vol] 16.1 g/dL 13.0-16.5 [facility] Immature granulocytes/100 WB C Auto (Bld)Ordered By: Eddy Escobar on 03-01-2025 Immature granulocytes/100 WBC (Bld) 0.300 % 0.0-0.9 [facility] Comment on above: IG% - Immature Granu locytes (promyelocytes, myelocytes and metamyelocytes) > 1% indicates that a LEFT SHIFT is Present. L501.4021on 03-01-2025 Trop T High Sen 18 ng/L Normal <=22 [facility] Comment on above: Performed By: #### L 501.4021 #### [facility] Laboratory [address] [place], [address] MCV (mean corpuscular volume ) determinationOrdered By: Eddy Escobar on 03-01-2025 MCV (RBC) [Entitic vol] 82.0 fL 80-94 [facility] Mean corpuscular hemoglobin (MCH) determinationOrdered By: Eddy Escobar on 03-01-2025 MCH (RBC) [Entitic mass] 28.1 pg 27.0-32.0 [facility] Mean corpuscular hemoglobin concentration (MCHC) determinationOrdered By: Eddy Escobar on 03-01-2025 MCHC (RBC) [Mass/Vol] 34.3 g/dL 32-36 [facility] Mean platelet volume determi nationOrdered By: Eddy Escobar on 03-01-2025 Platelet mean volume (Bld) [Entitic vol] 11.1 fL 6.2-12.0 [facility] Monocyte percentageOrdered B y: Eddy Escobar on 03-01-2025 Monocytes/100 WBC (Bld) 6.5 % 0-10 [facility] Neutrophil percentageOrdered By: Eddy Escobar on 03-01-2025 Neutrophils/100 WBC (Bld) 65.3 % 47-70 [facility] Nucleated red blood cell per centageOrdered By: Eddy Escobar on 03-01-2025 Nucleated RBC/100 WBC (Bld) [Ratio] 0 % 0-5 [facility] Platelet countOrdered By: Ravi Escobar on 03-01-2025 Platelets (Bld) [#/Vol] 260 10*3/uL 150-450 [facility] Potassium measurement (mass/ volume)Ordered By: Eddy Escobar on 03-01-2025 Potassium (Unsp spec) [Mass/Vol] 3.7 mmol/L 3.3-5.1 [facility] RBC Auto (Bld) [#/Vol]Ordere d By: Eddy Escobar on 03-01-2025 RBC (Bld) [#/Vol] 5.72 10*6/uL 4.6-6.2 [facility] Serum creatinine measurement (mass/volume)Ordered By: Eddy Escobar on 03-01-2025 Creatinine [Mass/Vol] 0.97 mg/dL 0.70-1.20 [facility] Serum glucose measurement (m ass/volume)Ordered By: Eddy Escobar on 03-01-2025 Glucose [Mass/Vol] 175 mg/dL High 70-99 [facility] Serum or plasma calcium tra urement (mass/volume)Ordered By: Eddy Escobar on 03-01-2025 Calcium [Mass/Vol] 9.1 mg/dL 7.6-11.0 [facility] Serum or plasma urea nitroge n measurement (mass/volume)Ordered By: Eddy Escobar on 03-01-2025 Urea nitrogen [Mass/Vol] 18 mg/dL 4-19 [facility] Sodium levelOrdered By: Eddy Escobar on 03-01-2025 Sodium [Moles/Vol] 135 mmol/L 133-145 [facility] Troponin T HS 2 HRon 025 Trop T High Sen 18 ng/L Normal <=22 [facility] Comment on above: Performed By: #### L 499.0042 #### [facility] Laboratory [address] [place], [place], [address] Troponin T HS 4 HRon 025 Trop T High Sen Normal <=22 [facility] Comment on above: Result Comment: ABDIRIZAK ENT DISCHARGED Performed By: #### L 499.0043 #### [facility] Laboratory [address] [place], [address] Troponin T.cardiac [Mass/vol ume] in Serum or Plasma by High sensitivity methodOrdered By: Eddy Escobar on 03-01-2025 Troponin T.cardiac High sensitivity method [Mass/Vol] 18 ng/L <22 [facility] Troponin T.cardiac High sensitivity method [Mass/Vol] 18 ng/L <22 [facility] White blood cell (WBC) count Ordered By: Eddy Escobar on 03-01-2025 WBC (Bld) [#/Vol] 9.9 10*3/uL 4.4-11.0 [facility] CNOVon 11-23-2023 CNOV Office Visit ([id number]) ---- RACHID BENDER ([id number]) 1975 [facility] Date Time Provider Department 11/23/23 3:15 PM ANKUSH OROZCO JR AGPOB3 During your visit today, we recorded the following information about you: Respiration Weight Height 20/minute 117.9 kg 1.829 m Ankush Orozco Jr., MD 11/23/2023 3:30 PM Signed Patient presents with: Left Thumb - Established Patient, Post Op PROCEDURE EXPLORATION WOUND EXTREMITY PENETRATING, left thumb (Left) REPAIR EXTENSOR TENDON FINGER W/O FREE GRAFT, LEFT THUMB (Left) 10/14/2023 HISTORY OF PRESENT ILLNESS Rachid Bender presents for post operative follow up 6 weeks from surgery. He is doing well today. Current Concerns: None Pain control:Well controlled Currently taking pain medication:No Fever, chills or other signs of infection: None PHYSICAL EXAMINATION No erythema, cellulitis or drainage Incision lines are intact, no drainage noted. Scars are maturing nicely ROM: Near full Sensation:Normal sensation Brisk cap refill IMAGING No new imaging obtained. ASSESSMENT AND PLAN: Laceration of left thumb without foreign body without damage to nail, subsequent encounter (primary encounter diagnosis) I want him to continue to work on motion. He can come out of his splint. I will see him back as needed. Pt education provided on lifting restrictions Patient was instructed to call the office with any questions and/or concerns Scribe Attestation: By signing my name below, I, Johana Camarillo MA, attest that this documentation has been prepared under the direction and in the presence of Ankush Orozco Jr., MD. Electronically Signed: Johana Camarillo MA, Scribe. November 23, 2023 3:25 PM. Clinician Attestation Statement: The information in this document, created by the medical support assistant for me, accurately reflects the services I personally performed and the decisions made by me. I have reviewed and approved this document for accuracy. Ankush Orozco MD Please note: This note has been produced using speech recognition software and may contain errors related to that system including grammar, punctuation, spelling, gender and words and phrases that may be inappropriate. Referring Provider: SELF [200] Allergies As of Date: 11/23/2023 Noted Allergy Reaction BUPROPION 10/04/2006 5 - Intolerance Comments: Muscle cramps, tongue biting METFORMIN 12/20/2017 6 - Diarrhea Comments: at doses over 1500mg /d Date Reviewed: 11/23/2023 Reviewed by: Violet Beard Tech - Fully Assessed Reason for Visit: Established Patient [175] Post Op [174] Primary Visit Diagnosis:Laceratio n of left thumb without foreign body without damage to nail, subsequent encounter [S61.012D] Prescriptions as of 11/23/2023 - traMADol (ULTRAM) 50 mg tablet Take 1 tablet by mouth every 8 hours as needed for up to 3 days. - CPAP 1 Units by MISCELLANEOUS route daily at bedtime. Travel CPAP machine with ?filters, mask, hose, nose pillow, etc. CPAP 13 cmH20 with humidification. - COMPOUNDED PRESCRIPTION CPAP machine with filters, mask, hose, nose pillow, etc. CPAP 13 cmH20 with humidification. - COMPOUNDED PRESCRIPTION CPAP 13 cmH20 with humidification. - COMPOUNDED PRESCRIPTION Glucometer, test strips, lancets + accessories. Up to once a day testing. Diabetes 2, 250.00, 3mo supply Problem List As Of Date 11/23/2023 Noted Resolved MARYANN on CPAP [G47.33] 09/23/2004 Lung field nodule - 6mm - Stable x4y [793.1] 10/02/2004 12/10/2016 Overweight [E66.9] 10/29/2006 ALLERGIC RHINITIS NOS [J30.9] 11/01/2007 Impaired fasting glucose [R73.01] 11/06/2008 09/07/2013 Pain in joint, shoulder region [M25.519] 10/23/2010 12/10/2016 Other affections of shoulder region, not elsewh*10/23/2010 12/10/2016 Primary hypertension [I10] 09/01/2013 Diabetes type 2, controlled (HCC) [E11.9] 09/07/2013 Thoracic back pain [M54.6] 10/17/2013 12/10/2016 Bilateral thoracic back pain [M54.6] 10/17/2013 Cardiovascular event risk [Z91.89] 07/05/2017 Obesity, Class II, BMI 35-39.9 [E66.9] 06/20/2018 Preop examination [Z01.818] 10/14/2023 Laceration of left thumb with tendon involvemen*10/14/19 24 H/O diabetes mellitus [Z86.39] 10/14/2023 Nicotine use [Z72.0] 10/14/2023 Disposition: Return if symptoms worsen or fail to improve. Follow-up and Disposition History for Encounter Date Provider Department Center 11/23/2023 [id number] JR, WIL*AGPOB3 Ag Pob Encounter Status:Closed by ANKUSH OROZCO on 11/23/23 [facility] CNTHERAPYon 11-19-2023 CNTHERAPY OT/PT/Speech Visit ([facility]) ---- RACHID BENDER ([id number]) 1975 [address] [place] Date Time Provider Department 11/19/23 3:30 PM [facility] Date Time Provider Department Center 11/19/2023 3:30 PM [id number] DELATOR[facility] Reason for Visit: Occupational Therapy [504] OT Discharge [750] Primary Visit Diagnosis:Pain of left thumb [M79.645] Allergies As of Date: 11/19/2023 Noted Allergy Reaction BUPROPION 10/04/2006 5 - Intolerance Comments: Muscle cramps, tongue biting METFORMIN 12/20/2017 6 - Diarrhea Comments: at doses over 1500mg /d Date Reviewed: 10/26/2023 Reviewed by: Brandon Pinzon Tech - Fully Assessed Prescriptions as of 01/14/2024 - traMADol (ULTRAM) 50 mg tablet Take 1 tablet by mouth every 8 hours as needed for up to 3 days. - CPAP 1 Units by MISCELLANEOUS route daily at bedtime. Travel CPAP machine with ?filters, mask, hose, nose pillow, etc. CPAP 13 cmH20 with humidification. - COMPOUNDED PRESCRIPTION CPAP machine with filters, mask, hose, nose pillow, etc. CPAP 13 cmH20 with humidification. - COMPOUNDED PRESCRIPTION CPAP 13 cmH20 with humidification. - COMPOUNDED PRESCRIPTION Glucometer, test strips, lancets + accessories. Up to once a day testing. Diabetes 2, 250.00, 3mo supply ---- [facility] CNTHERAPYon 11-08-2023 CNTHERAPY OT/PT/Speech Visit ([facility]) ---- RACHID BENDER ([id number]) 1975 M [place] Date Time Provider Department 11/08/23 3:30 PM [facility] Date Time Provider Department Center 11/08/2023 3:30 PM [id number] DELATORRE [facility] Reason for Visit: Occupational Therapy [504] Primary Visit Diagnosis:Pain of left thumb [M79.645] Allergies As of Date: 11/08/2023 Noted Allergy Reaction BUPROPION 10/04/2006 5 - Intolerance Comments: Muscle cramps, tongue biting METFORMIN 12/20/2017 6 - Diarrhea Comments: at doses over 1500mg /d Date Reviewed: 10/26/2023 Reviewed by: Brandon Pinzon Tech - Fully Assessed Prescriptions as of 11/16/2023 - traMADol (ULTRAM) 50 mg tablet Take 1 tablet by mouth every 8 hours as needed for up to 3 days. - CPAP 1 Units by MISCELLANEOUS route daily at bedtime. Travel CPAP machine with ?filters, mask, hose, nose pillow, etc. CPAP 13 cmH20 with humidification. - COMPOUNDED PRESCRIPTION CPAP machine with filters, mask, hose, nose pillow, etc. CPAP 13 cmH20 with humidification. - COMPOUNDED PRESCRIPTION CPAP 13 cmH20 with humidification. - COMPOUNDED PRESCRIPTION Glucometer, test strips, lancets + accessories. Up to once a day testing. Diabetes 2, 250.00, 3mo supply ---- [facility] CNOVon 10-26-2023 CNOV Office Visit (AGPOB3) ---- RACHID BENDER ([id number]) 1975 [facility] Date Time Provider Department 10/26/23 1:45 PM ANKUSH OROZCO JR AGPOB3 During your visit today, we recorded the following information about you: Respiration Weight Height 18/minute 117.9 kg 1.829 m Ankush Orozco Jr., MD 10/26/2023 1:55 PM Signed Patient presents with: Left Thumb - Post Op PROCEDURE EXPLORATION WOUND EXTREMITY PENETRATING, left thumb (Left) REPAIR EXTENSOR TENDON FINGER W/O FREE GRAFT, LEFT THUMB (Left) 10/14/2023 HISTORY OF PRESENT ILLNESS Rachid Bender presents for post operative follow up 2 weeks from surgery. He is doing well today. He is wearing his splint. Current Concerns: none Pain control:Well controlled. Currently taking pain medication:No Fever, chills or other signs of infection: None PHYSICAL EXAMINATION No erythema, cellulitis or drainage Incision lines are intact, no drainage noted. Scars are maturing nicely ROM: No malrotation when making a fist. Sensation:Normal sensation Brisk cap refill IMAGING No imaging obtained. ASSESSMENT AND PLAN: Laceration of left thumb without foreign body without damage to nail, subsequent encounter (primary encounter diagnosis) Laceration of extensor tendon of left thumb at hand level I did remove his sutures today. I want him to continue his splint. I will see him back in one month. Pt education provided on lifting restrictions Patient was instructed to call the office with any questions and/or concerns Scribe Attestation: By signing my name below, I, Johana Camarillo MA, attest that this documentation has been prepared under the direction and in the presence of Ankush Orozco Jr., MD. Electronically Signed: Johana Camarillo MA, Scribe. October 26, 2023 1:48 PM. Clinician Attestation Statement: The information in this document, created by the medical support assistant for me, accurately reflects the services I personally performed and the decisions made by me. I have reviewed and approved this document for accuracy. Ankush Orozco MD Please note: This note has been produced using speech recognition software and may contain errors related to that system including grammar, punctuation, spelling, gender and words and phrases that may be inappropriate. Allergies As of Date: 10/26/2023 Noted Allergy Reaction BUPROPION 10/04/2006 5 - Intolerance Comments: Muscle cramps, tongue biting METFORMIN 12/20/2017 6 - Diarrhea Comments: at doses over 1500mg /d Date Reviewed: 10/26/2023 Reviewed by: Brandon Pinzon Tech - Fully Assessed Reason for Visit: Post Op [174] Primary Visit Diagnosis:Laceratio n of left thumb without foreign body without damage to nail, subsequent encounter [S61.012D] Other Visit Diagnosis:Laceratio n of extensor tendon of left thumb at hand level [S66.222A] Prescriptions as of 10/26/2023 - traMADol (ULTRAM) 50 mg tablet Take 1 tablet by mouth every 8 hours as needed for up to 3 days. - CPAP 1 Units by MISCELLANEOUS route daily at bedtime. Travel CPAP machine with ?filters, mask, hose, nose pillow, etc. CPAP 13 cmH20 with humidification. - COMPOUNDED PRESCRIPTION CPAP machine with filters, mask, hose, nose pillow, etc. CPAP 13 cmH20 with humidification. - COMPOUNDED PRESCRIPTION CPAP 13 cmH20 with humidification. - COMPOUNDED PRESCRIPTION Glucometer, test strips, lancets + accessories. Up to once a day testing. Diabetes 2, 250.00, 3mo supply Problem List As Of Date 10/26/2023 Noted Resolved MARYANN on CPAP [G47.33] 09/23/2004 Lung field nodule - 6mm - Stable x4y [793.1] 10/02/2004 12/10/2016 Overweight [E66.9] 10/29/2006 ALLERGIC RHINITIS NOS [J30.9] 11/01/2007 Impaired fasting glucose [R73.01] 11/06/2008 09/07/2013 Pain in joint, shoulder region [M25.519] 10/23/2010 12/10/2016 Other affections of shoulder region, not elsewh*10/23/2010 12/10/2016 Primary hypertension [I10] 09/01/2013 Diabetes type 2, controlled (HCC) [E11.9] 09/07/2013 Thoracic back pain [M54.6] 10/17/2013 12/10/2016 Bilateral thoracic back pain [M54.6] 10/17/2013 Cardiovascular event risk [Z91.89] 07/05/2017 Obesity, Class II, BMI 35-39.9 [E66.9] 06/20/2018 Preop examination [Z01.818] 10/14/2023 Laceration of left thumb with tendon involvemen*10/14/19 24 H/O diabetes mellitus [Z86.39] 10/14/2023 Nicotine use [Z72.0] 10/14/2023 Disposition: Return in about 4 weeks (around 11/23/2023). Follow-up and Disposition History for Encounter Date Provider Department Center 10/26/2023 [id number] JR, WIL*AGPOB3 AG POB Letter Text Encounter Status:Closed by ANKUSH OROZCO on 10/26/23 [facility] CNTHERAPYon 10-26-2023 CNTHERAPY OT/PT/Speech Visit ([facility]) ---- RACHID BENDER ([id number]) 1975 [place] Date Time Provider Department 10/26/23 1:45 PM [facility] Date Time Provider Department Center 10/26/2023 1:45 PM [id number] [facility] Reason for Visit: Occupational Therapy [504] Primary Visit Diagnosis:Pain of left thumb [M79.645] Allergies As of Date: 10/26/2023 Noted Allergy Reaction BUPROPION 10/04/2006 5 - Intolerance Comments: Muscle cramps, tongue biting METFORMIN 12/20/2017 6 - Diarrhea Comments: at doses over 1500mg /d Date Reviewed: 10/26/2023 Reviewed by: Brandon Pinzon Tech - Fully Assessed Prescriptions as of 10/26/2023 - traMADol (ULTRAM) 50 mg tablet Take 1 tablet by mouth every 8 hours as needed for up to 3 days. - CPAP 1 Units by MISCELLANEOUS route daily at bedtime. Travel CPAP machine with ?filters, mask, hose, nose pillow, etc. CPAP 13 cmH20 with humidification. - COMPOUNDED PRESCRIPTION CPAP machine with filters, mask, hose, nose pillow, etc. CPAP 13 cmH20 with humidification. - COMPOUNDED PRESCRIPTION CPAP 13 cmH20 with humidification. - COMPOUNDED PRESCRIPTION Glucometer, test strips, lancets + accessories. Up to once a day testing. Diabetes 2, 250.00, 3mo supply ---- [facility] CNTHERAPYon 10-18-2023 CNTHERAPY OT/PT/Speech Visit ([facility]) ---- RACHID BENDER ([id number]) 1975 M [place] Date Time Provider Department 10/18/23 2:30 PM [facility] Date Time Provider Department Center 10/18/2023 2:30 PM [id number] [facility]ATORRE Reason for Visit: OT EVAL [748] Primary Visit Diagnosis:Pain of left thumb [M79.645] Allergies As of Date: 10/18/2023 Noted Allergy Reaction BUPROPION 10/04/2006 5 - Intolerance Comments: Muscle cramps, tongue biting METFORMIN 12/20/2017 6 - Diarrhea Comments: at doses over 1500mg /d Date Reviewed: 10/14/2023 Reviewed by: Beck Huff, RN - Fully Assessed Prescriptions as of 10/18/2023 - traMADol (ULTRAM) 50 mg tablet Take 1 tablet by mouth every 8 hours as needed for up to 3 days. - CPAP 1 Units by MISCELLANEOUS route daily at bedtime. Travel CPAP machine with ?filters, mask, hose, nose pillow, etc. CPAP 13 cmH20 with humidification. - COMPOUNDED PRESCRIPTION CPAP machine with filters, mask, hose, nose pillow, etc. CPAP 13 cmH20 with humidification. - COMPOUNDED PRESCRIPTION CPAP 13 cmH20 with humidification. - COMPOUNDED PRESCRIPTION Glucometer, test strips, lancets + accessories. Up to once a day testing. Diabetes 2, 250.00, 3mo supply ---- [facility] [id number] 10-14-2023 [id number] HNO ID: [id number] Author: BECK HUFF RN Service: ? Author Type: Registered Nurse Type: [id number] Filed: 10/14/2023 16:15 Note Text: You may also take Tylenol and NSAIDs such as Advil, Motrin and Ibuprofen as instructed on the bottle. [facility] BRIEF OP NOTon 10-14-2023 BRIEF OP NOT HNO ID: [id number] Author: ANKUSH OROZCO JR, MD Service: Hand Surgery Author Type: Physician Type: Brief Op Note Filed: 10/14/2023 16:05 Note Text: HAND SURGERY BRIEF OPERATIVE NOTE LOG ID: [id number] Surgery/Procedure Date: 10/14/2023 Incision/Procedure Start Time: 3:37 PM Incision Close/Procedure End Time: 3:58 PM Surgeon(s)/Procedur myra(s) and Development Administrator(s): Surgeon(s) and Role: * Ankush Orozco Jr., MD - Primary No Additional Staff Procedure(s): Procedure(s) (LRB): EXPLORATION WOUND EXTREMITY PENETRATING, left thumb (Left) REPAIR EXTENSOR TENDON FINGER W/O FREE GRAFT, LEFT THUMB (Left) Anesthesia: Local Pre-Op/Pre-Procedur e Diagnosis: Laceration of left thumb with tendon involvement, initial encounter [S61.012A] Post-Op/Post-Proced ure Diagnosis: Laceration of left thumb with tendon involvement, initial encounter [S61.012A] Implant: * No implants in log * Fluids: per anesthesia record Estimated Blood Loss: Minimal Specimens: None Findings: See full operative report Complications: None Special medications: 2 g Ancef Post op plan: 48 year old male status-post Procedure(s) (LRB): EXPLORATION WOUND EXTREMITY PENETRATING, left thumb (Left) REPAIR EXTENSOR TENDON FINGER W/O FREE GRAFT, LEFT THUMB (Left). - Pain control. - Weight Bearing Status: No lifting, pushing or pulling more than 10 lbs of force. - OT: None. - Disposition: Home. SIGNATURE: Ankush Orozco MD PATIENT NAME: Rachid Bender DATE: October 14, 2023 TIME: 3:58 PM PAGER/CONTACT #: [phone] [facility] HISTORY PHYSICALon HISTORY PHYSICAL HNO ID: [id number] Author: NALINI DUENAS APRN.COLUMNIST Service: ? Author Type: Nurse Practitioner Type: H&P Filed: 10/14/2023 14:13 Note Text: HISTORY AND PHYSICAL EXAMINATION SERVICE DATE: 10/14/2023 SERVICE TIME: 1:54 PM PRIMARY CARE PHYSICIAN: Emiliano Luevano DO REASON FOR VISIT: Rachid Bender is a 48 year old male who is scheduled for Procedure(s): EXPLORATION WOUND EXTREMITY PENETRATING, left thumb (Left) REPAIR EXTENSOR TENDON FINGER W/O FREE GRAFT, LEFT THUMB (Left) at the request of Dr. Orozco for routine HANDP. The reason for this visit is to perform a comprehensive review of the patient's past medical history, assess their current health status and obtain any additional testing required based on anesthesia guidelines. We will also identify any potential anesthesia problems or contraindications to the planned procedure. The patient has the following: ACTIVE PROBLEM LIST Maryann On Cpap Overweight Allergic Rhinitis, Cause Unspecified Primary Hypertension Diabetes Type 2, Controlled (Hcc) Bilateral Thoracic Back Pain Cardiovascular Event Risk Obesity, Class II, Bmi 35-39.9 Preop Examination Laceration of Left Thumb With Tendon Involvement H/O Diabetes Mellitus Nicotine Use Subjective CHIEF COMPLAINT: Laceration of left thumb with tendon involvement, initial encounter [L47.012A] HPI: Rachid Bender is a 48 year old male who presents to [facility] for a left thumb repair of extensor tendon with Dr. Orozco. Patient c/o finger laceration 10/10/23 when using a fillet knife. Patient denies pain or numbness at this time. Patient is agreeable to the procedure. METS: Do heavy work around the house, such as scrubbing floors, lifting or moving heavy furniture (8.00 METs) Patient denies any CP/SOB with above activity. PAST MEDICAL HISTORY Diagnosis Date Lung field nodule - 6mm - Stable 10/02/2004 4-6mm nodule on CT chest in 02-01, 09-02, 10-03. Lung field nodule - 6mm - Stable x4y 10/02/2004 4-6mm nodule on CT chest in 02-01, 09-02, 10-03, 2007. [facility] - PAST MEDICAL HISTORY OF 1998 Fractured L leg tib/fib PAST SURGICAL HISTORY Procedure Laterality Date PAST SURGICAL HISTORY OF none PAST SURGICAL HISTORY OF left leg - plates and screws FAMILY HISTORY Problem Relation Age of Onset Diabetes Sister type 2 Hypertension Mother None Father None Brother None Child Coronary Artery Disease Paternal Grandfather Stroke Maternal Grandfather cerebral aneurysm, 50s Diabetes Mother 2 SOCIAL HISTORY: Social History Tobacco Use Smoking status: Light Smoker Packs/day: 0.50 Years: 15.00 Additional pack years: 0.00 Total pack years: 7.50 Types: Cigarettes Smokeless tobacco: Never Tobacco comments: cigs Vaping Use Vaping Use: Never used Substance Use Topics Alcohol use: Yes Comment: rare Drug use: No Prior to Admission medications as of 10/14/23 1346 Medication Sig Last Dose Taking CPAP 1 Units by MISCELLANEOUS route daily at bedtime. Travel CPAP machine with filters, mask, hose, nose pillow, etc. CPAP 13 cmH20 with humidification. COMPOUNDED PRESCRIPTION CPAP machine with filters, mask, hose, nose pillow, etc. CPAP 13 cmH20 with humidification. traMADol (ULTRAM) 50 mg tablet TAKE 1-2 TABLETS BY MOUTH EVERY 6 HOURS NEEDED Patient not taking: Reported on 10/12/2023 COMPOUNDED PRESCRIPTION CPAP 13 cmH20 with humidification. COMPOUNDED PRESCRIPTION Glucometer, test strips, lancets + accessories. Up to once a day testing. Diabetes 2, 250.00, 3mo supply No medication comments found. ALLERGIES Allergen Reactions Bupropion Intolerance Muscle cramps, tongue biting Metformin Diarrhea at doses over 1500mg /d REVIEW OF SYSTEMS: PAIN ASSESSMENT: Pain Pain Level: 0 Pain Location: Hand-Left Pain Assessment: Assessment Tool: Verbal (Numeric Rating or Visual Analog Scale) General: Denies fever, chills, and unexpected weight change. Neuro: Denies dizziness and headaches. Respiratory: Positive for Tobacco Use 0.5 PPD . No history of current cough or dyspnea, or pneumonia in the past 6 weeks. Cardiovascular: No history of HTN requiring medication, no history of angina, CHF, ND, cardiac surgery or stents. Denies rest pain, gangrene or revascularization/a mputation for PVD. No history of cardiovascular symptoms or problems. No history of angina, CHF, ND, cardiac surgery or stents. Denies chest pain or palpations. GI: Denies abdominal pain. No Nausea, vomiting or diarrhea. : Denies dysuria. Endocrine: No history of diabetes or thyroid conditions. Hematology: Denies history of bleeding or clotting disorder. No known autoimmune disorders. Psych: Denies anxiety/depression. Musculoskeletal: see HPI. Skin: Denies open sores and rashes. Objective PHYSICAL EXAM: VITALS: BP 211/102 Pulse 91 Temp (Src) 97.5 (Temporal Artery) Resp 18 Ht 6' 0 (1.83m) Wt 260 lb (117.9kg) SpO2 98% BMI 35.25 kg/(m2). O (more content not included)... [facility] OPERATIVE NOon 10-14-2023 OPERATIVE NO HNO ID: [id number] Author: ANKUSH OROZCO JR, MD Service: Hand Surgery Author Type: Physician Type: Operative Report Filed: 10/15/2023 07:32 Note Text: HAND SURGERY OPERATIVE NOTE LOG ID: [id number] Surgery/Procedure Date: 10/14/2023 Incision/Procedure Start Time: 3:37 PM Incision Close/Procedure End Time: 3:58 PM Surgeon(s)/Procedur alist(s) and Development Administrator(s): Surgeon(s) and Role: * Ankush Orozco Jr., MD - Primary No Additional Staff Procedure(s): Procedure(s) (LRB): EXPLORATION WOUND EXTREMITY PENETRATING, left thumb (Left) REPAIR EXTENSOR TENDON FINGER W/O FREE GRAFT, LEFT THUMB (Left) Anesthesia: Local Pre-Op/Pre-Procedur e Diagnosis: Laceration of left thumb with tendon involvement, initial encounter [S61.012A] Post-Op/Post-Proced ure Diagnosis: Laceration of left thumb with tendon involvement, initial encounter [S61.012A] Implant: * No implants in log * Fluids: per anesthesia record Estimated Blood Loss: Minimal Specimens: None Findings: See full operative report Complications: None Special medications: 2 g Ancef Clinical scenario: This is a 48-year-old male who sustained an accidental and self-inflicted laceration to the dorsal aspect of the left thumb. He had clinical evidence of extensor tendon injury as he had no active extension at the interphalangeal joint of the left thumb. Because of this I did offer him exploration penetrating wound left thumb and repair of extensor tendon. I explained the risks, benefits and potential complications of surgery. He understood these risks and agreed to proceed. Details of operation: The patient's left thumb was marked with indelible ink in the preoperative holding area. He was then brought to the operating room arena placed in the supine position. Timeout procedure was performed and appropriate preop antibiotics were given. I then infiltrated the left thumb with 10 cc of one-to-one solution of half percent Marcaine plain and 2% lidocaine with epi. I gave an additional 3 cc intraoperatively. We then prepped and draped the left upper extremity in the usual sterile fashion. I used an Esmarch bandage to exsanguinate the left upper extremity and kept the Esmarch wrapped in the proximal forearm. Total Esmarch time was less than 30 minutes. I remove the sutures of his transversed wound on the dorsal aspect of the thumb and thoroughly expected and the wound. There is a full-thickness injury to the extensor pollicis longus tendon. There was no injury to the extensor pollicis brevis tendon. I did have to extend the wound approximately proximately 1 cm. This gave me access to the proximal portion of the extensor tendon. I then repaired the tendon with a 3-0 Ethibond suture utilizing a modified Dias technique. I then placed 3 [id number] sutures in the repair as well yielding a total of 8 core sutures in the repair. The patient was asked to move his thumb and he was able to extend the IP joint easily. I then remove the turnicot, hemostasis was achieved and the wound was copiously irrigated. I reapproximated the wound with multiple interrupted horizontal mattress sutures of 4-0 chromic. A dry sterile dressing was applied and patient was placed in a thumb spica splint with the wrist and thumb in full extension. All sponge and needle counts were correct at the end the case. Disposition: Patient was discharged home. He was given prescription of pain medication and instructions to call my office or return the emergency room if any increasing pain, questions or concerns. SIGNATURE: Ankush Orozco MD PATIENT NAME: Rachid Bender DATE: October 15, 2023 TIME: 3:58 PM PAGER/CONTACT #: [phone] [facility] CNOVon 10-12-2023 CNOV Office Visit (AGPOB3) ---- RACHID BENDER ([id number]) 1975 [facility] Date Time Provider Department 10/12/23 9:15 AM ANKUSH OROZCO JR AGPOB3 During your visit today, we recorded the following information about you: Respiration Weight Height 20/minute 118.4 kg 1.829 m Ankush Orozco Jr., MD 10/13/2023 7:30 AM Signed 10/12/2023 Name:Rachid Bender Date of :1975 History of Chief Complaint: Rachid is seeing me as a new patient today. He complains of left thumb laceration. He injured his thumb on 10/10/2023, while using a fillet knife. He is unable to extend the thumb. He is wearing a thumb lacer brace. He denies any numbness or tingling and otherwise has no other complaints. . PAST MEDICAL HISTORY Diagnosis Date Lung field nodule - 6mm - Stable 10/02/2004 4-6mm nodule on CT chest in 02-01, 09-02, 10-03. Lung field nodule - 6mm - Stable x4y 10/02/2004 4-6mm nodule on CT chest in 02-01, 09-02, 10-03, 2007. PMH - PAST MEDICAL HISTORY OF 1998 Fractured L leg tib/fib PAST SURGICAL HISTORY Procedure Laterality Date PAST SURGICAL HISTORY OF none Social History Tobacco Use Smoking status: Light Smoker Packs/day: 0.50 Years: 15.00 Additional pack years: 0.00 Total pack years: 7.50 Types: Cigarettes Smokeless tobacco: Never Tobacco comments: cigs Substance Use Topics Alcohol use: Yes Comment: rare Drug use: No ALLERGIES Allergen Reactions Bupropion Intolerance Muscle cramps, tongue biting Metformin Diarrhea at doses over 1500mg /d Current Outpatient Medications Medication Sig Dispense Refill CPAP 1 Units by MISCELLANEOUS route daily at bedtime. Travel CPAP machine with filters, mask, hose, nose pillow, etc. CPAP 13 cmH20 with humidification. 1 Device 0 COMPOUNDED PRESCRIPTION CPAP machine with filters, mask, hose, nose pillow, etc. CPAP 13 cmH20 with humidification. 1 Each 0 traMADol (ULTRAM) 50 mg tablet TAKE 1-2 TABLETS BY MOUTH EVERY 6 HOURS NEEDED 60 tablet 2 COMPOUNDED PRESCRIPTION CPAP 13 cmH20 with humidification. 1 Each 0 COMPOUNDED PRESCRIPTION Glucometer, test strips, lancets + accessories. Up to once a day testing. Diabetes 2, 250.00, 3mo supply 1 Kit 4 No current facility-administer ed medications for this visit. VITALS There were no vitals taken for this visit. PHYSICAL EXAMINATION: General: he is a well developed, well nourished male Psyche: he is alert and oriented and cooperative to our examination Skin: Skin condition is healthy without rashes or erythema. Cadiovascular: Palpable radial pulse with brisk cap refill distally Neck: Supple with no JVD Lymph: There is no palpable epitrochlear Pulmonary: he has non labored breathing. There is no evidence of cyanosis. There is no clubbing of his fingernails. he has no pursed lips. Neuro: he is alert and oriented x3. There are no focal neurologic deficits. See sensation exam below. Head: Normocephalic and atraumatic Musculoskeletal: There is no swelling or ecchymosis. There is a small laceration on the dorsal aspect of the thumb. There are no Heberden's or Venecia's nodes. There is no boutonniere or swan-neck deformity of the fingers. There is no ulnar drift of the fingers. There is no intrinsic muscular atrophy. There is a negative shoulder sign over the thumb CMC joint. There is no dorsal subluxation of the ulnar head. He has no active extension at the IP joint of the thumb. He fires the FPL tendon. Sensation is intact to light touch. Imaging: No new imaging Assessment: 1. Laceration of left thumb without foreign body without damage to nail, initial encounter 2. Laceration of extensor tendon of left thumb at hand level Plan: I do recommend exploration penetrating wound left thumb with repair of extensor tendon. I have explained the risks, benefits and potential complications of the Surgery. Patient understands these risks and agrees to proceed. We will schedule this at our earliest mutual convenience. Call the office with any questions or concerns. All of the patients questions were answered to his satisfaction. I reviewed diagnosis with patient verbally. We discussed his treatment options in depth and established a course of treatment suited to him. Scribe Attestation: By signing my name below, I, Johana Camarillo MA, attest that this documentation has been prepared under the direction and in the presence of Ankush Orozco Jr., MD. Electronically Signed: Johana Camarillo MA, Scribe. October 12, 2023 9:43 AM. Clinician Attestation Statement: The information in this document, created by the medical support assistant for me, accurately reflects the services I personally performed and the decisions made by me. I have reviewed and approved this document for accuracy. Ankush Orozco MD Please note: This note has been produced using speech recognition (more content not included)... Normal [facility] 10-11-2023 [facility] Telephone (AGPOB3) ---- RACHID BENDER ([id number]) 1975 [facility] Date Time Provider Department 10/11/23 ANKUSH OROZCO JR During your visit today, we recorded the following information about you: Donna Santamaria 10/11/2023 8:20 AM Signed ----- Message from Rachell Flores sent at 10/11/2023 8:04 AM EDT ----- Regarding: Orthopedics / Hand: Laceration (Cut) / Recent ED Visit Orthopedics / Hand: Laceration (Cut) / Recent ED Visit Patient has been identified by name and Date of (Y/N): Y Patient: Rachid Bender Date of : 1975 Previous Provider Seen: NA Body Part(s) Identified: Left Thumb Diagnosis/Reason For Visit: Laceration of thumb tendon Reason for the call/escalation:Lod i ER F/U, ER doctor spoke to Dr. Orozco. Pt needs immediate surgery to repair the tendon. very persistent with getting a call back immediately, explained agent can not speed up process and will be following current protocol of sending a staff message. If reason for call/escalation is discharge from ED/ER or Hospital, which facility was the patient seen at: na Was an appointment scheduled (Y/N): n Person calling if other than patient: Margaret mendiola Return call to if other than patient: Margaret mendiola Best contact number: [phone] Thank you, Rachell Flores October 11, 2023 8:04 AM Allergies As of Date: 10/11/2023 Noted Allergy Reaction BUPROPION 10/04/2006 5 - Intolerance Comments: Muscle cramps, tongue biting METFORMIN 12/20/2017 6 - Diarrhea Comments: at doses over 1500mg /d Date Reviewed: 10/10/2023 Reviewed by: Mirna Pritchard RN - Fully Assessed Reason for Visit: ER F/U [41] Cmt: [place] 10/09 Prescriptions as of 10/11/2023 - CPAP 1 Units by MISCELLANEOUS route daily at bedtime. Travel CPAP machine with ?filters, mask, hose, nose pillow, etc. CPAP 13 cmH20 with humidification. - COMPOUNDED PRESCRIPTION CPAP machine with filters, mask, hose, nose pillow, etc. CPAP 13 cmH20 with humidification. - traMADol (ULTRAM) 50 mg tablet TAKE 1-2 TABLETS BY MOUTH EVERY 6 HOURS NEEDED - COMPOUNDED PRESCRIPTION CPAP 13 cmH20 with humidification. - COMPOUNDED PRESCRIPTION Glucometer, test strips, lancets + accessories. Up to once a day testing. Diabetes 2, 250.00, 3mo supply Problem List As Of Date 10/11/2023 Noted Resolved Obstructive sleep apnea syndrome [G47.33] 09/23/2004 Lung field nodule - 6mm - Stable x4y [793.1] 10/02/2004 12/10/2016 Overweight [E66.9] 10/29/2006 ALLERGIC RHINITIS NOS [J30.9] 11/01/2007 Impaired fasting glucose [R73.01] 11/06/2008 09/07/2013 Pain in joint, shoulder region [M25.519] 10/23/2010 12/10/2016 Other affections of shoulder region, not elsewh*10/23/2010 12/10/2016 Essential hypertension, benign [I10] 09/01/2013 Diabetes type 2, controlled (HCC) [E11.9] 09/07/2013 Thoracic back pain [M54.6] 10/17/2013 12/10/2016 Bilateral thoracic back pain [M54.6] 10/17/2013 Cardiovascular event risk [Z91.89] 07/05/2017 Obesity, Class II, BMI 35-39.9 [E66.9] 06/20/2018 Encounter Status:Closed by DONNA SANTAMARIA on 10/11/23 [facility] ED NOTEon 10-10-2023 ED NOTE HNO ID: [id number] Author: MIRNA PRITCHARD RN Service: ? Author Type: Registered Nurse Type: ED Notes Filed: 10/11/2023 09:16 Note Text: Patient Call Back Information How are you doing ? better Did we appropriately manage your pain? Yes Did you understand your discharge instructions? Yes Did you get your prescriptions filled? N/a Were you able to make a follow-up appointment with your physician? Yes Were you comfortable during your stay here? Yes Did a member of the ER nursing team round on you during your visit? Yes You will receive a patient satisfaction survey in the mail in the nest 2 weeks, please take the time to fill out the survey as your input from your ER visit is very important to us. Yes Can we do anything else to help you? No [facility] ED NOTE HNO ID: [id number] Author: MIRNA PRITCHARD RN Service: ? Author Type: Registered Nurse Type: ED Notes Filed: 10/10/2023 17:14 Note Text: Dr Jaramillo aware of BP. Pt reports he will follow up and it will be fine pt states he does not want BP addressed this visit Verbalizes understanding of hypertension and risks. States he would like to go home. Normal [facility] ED NOTE HNO ID: [id number] Author: MIRNA PRITCHARD RN Service: ? Author Type: Registered Nurse Type: ED Notes Filed: 10/10/2023 14:49 Note Text: Pt arrives with steady gait to ED bed 4 C/O left thumb pain laceration from a filet knife Reports last tetanus less than 5 years ago Arrives with slow bleeding to wound, pressure applied [facility] ED PROV NOTEon 10-10-2023 ED PROV NOTE HNO ID: [id number] Author: LISA JARAMILLO MD Service: Emergency Medicine Author Type: Physician Type: ED Provider Notes Filed: 10/10/2023 17:21 Note Text: ED Provider Note Patient Name: Rachid Bender : 1975 SERVICE DATE: 10/10/23 History Patient presents with: Finger Injury Laceration Dwtei-xfqd-qiplzdyw male, with up-to-date tetanus presents emergency room with his , for concerns over left thumb laceration. Patient was using a fillet knife, and could have some frozen fat which she feeds to the chicken and dogs. Tetanus was 2020. Hand Injury Location: Finger Finger location: L thumb Injury: yes Pain details: Quality: Throbbing Severity: Moderate Onset quality: Sudden Dislocation: no Foreign body present: No foreign bodies Tetanus status: Up to date Relieved by: Nothing Worsened by: Nothing Ineffective treatments: None tried Associated symptoms: decreased range of motion Associated symptoms: no fever PAST MEDICAL HISTORY Diagnosis Date Lung field nodule - 6mm - Stable 10/02/2004 4-6mm nodule on CT chest in 02-01, 09-02, 10-03. Lung field nodule - 6mm - Stable x4y 10/02/2004 4-6mm nodule on CT chest in 02-01, 09-02, 10-03, 2007. PMH - PAST MEDICAL HISTORY OF 1998 Fractured L leg tib/fib PAST SURGICAL HISTORY Procedure Laterality Date PAST SURGICAL HISTORY OF none FAMILY HISTORY Problem Relation Age of Onset Diabetes Sister type 2 Hypertension Mother None Father None Brother None Child Coronary Artery Disease Paternal Grandfather Stroke Maternal Grandfather cerebral aneurysm, 50s Diabetes Mother 2 Social History Tobacco Use Smoking status: Light Smoker Packs/day: 0.50 Years: 15.00 Additional pack years: 0.00 Total pack years: 7.50 Types: Cigarettes Smokeless tobacco: Never Tobacco comments: cigs Substance and Sexual Activity Alcohol use: Yes Comment: rare Drug use: No Sexual activity: Yes Partners: Female Comment: 1 ALLERGIES Allergen Reactions Bupropion Intolerance Muscle cramps, tongue biting Metformin Diarrhea at doses over 1500mg /d Review of Systems Constitutional: Negative for fever. Skin: Positive for wound. All other systems reviewed and are negative. Physical Exam Vitals BP Pulse Temp Temp src Resp SpO2 Weight Height 10/10/23 1500 10/10/23 1445 10/10/23 1445 10/10/23 1445 10/10/23 1445 10/10/23 1445 10/10/23 1445 -- (S) (!) 216/107 (!) 104 36.3 ?C (97.4 ?F) Temporal 18 99 % 117.9 kg (260 lb) Physical Exam Vitals and nursing note reviewed. Constitutional: General: He is not in acute distress. Appearance: Normal appearance. He is not ill-appearing or toxic-appearing. HENT: Head: Normocephalic and atraumatic. Eyes: General: Right eye: No discharge. Left eye: No discharge. Pulmonary: Effort: No respiratory distress. Musculoskeletal: General: Tenderness and signs of injury present. Comments: Dorsal surface, base of the thumb, patient has a horizontally oriented laceration approximately 3-1/2 cm, oozing a small amount of blood, there is no arterial bleeding, wound goes through fascia, and subcutaneous tissue. Once a dry wound bed was appreciated, I could visualize the distal extensor tendon, possibly the extensor pollicis brevis, with exploration using forceps, I could not appreciate the proximal portion. Patient has good strong flexion at both the joints of the thumb, however he cannot extend against resistance at the distal portion of the thumb. Capillary refill is normal, gross touch is intact using a 21-gauge needle. Skin: General: Skin is warm and dry. Neurological: General: No focal deficit present. Mental Status: He is alert and oriented to person, place, and time. Mental status is at baseline. Psychiatric: Mood and Affect: Mood normal. Behavior: Behavior normal. Diagnostic Testing ED Labs Ordered and Reviewed - No data to display Procedures ED Course / Clinical Impression Clinical Impressions as of 10/10/23 1712 Laceration of left thumb without foreign body without damage to nail, initial encounter Laceration of extensor tendon of left thumb at hand level Hypertension, unspecified type MDM / Disposition / Plan 48-year-old hjvhp-abys-skpjuaew male, presents the emergency room with concerns over left thumb laceration. This occurred today, the patient was using a fillet knife at home to cut up some scrap to feed to his chickens and dog. Patient's tetanus status was addressed, was updated in 2019, and update is not needed today. Upon good wound exploration, physical examination, was determined that patient did have an extensor tendon laceration, possibly extensor pollicis brevis of the left thumb. Patient was unable to extend against resistance, the distal thumb. After appropriate anesthesia, was unable to localize of both ends of the tendon therefore could not perform repair here in the emerge (more content not included)... Normal [facility] Comp Metabolic Panelon 10-02 Albumin [Mass/Vol] 4.5 g/dL Normal 3.9-4.9 [facility] Reference Lab Comment on above: Performed By: #### C MP, HBA1C #### [facility] Routine Lab [address] [place], [place] [address] ALP [Catalytic activity/Vol] 61 U/L Normal 38-113 [facility] Reference Lab Comment on above: Performed By: #### C MP, HBA1C #### [facility] Routine Lab [address] [place], [place] [address] ALT [Catalytic activity/Vol] 39 U/L Normal 10-54 [facility] Lab Comment on above: Performed By: #### C MP, HBA1C #### [facility] Routine Lab [address], [place] [address] Anion gap [Moles/Vol] 12 mmol/L Normal 9-18 [facility] Reference Lab Comment on above: Performed By: #### C MP, HBA1C #### [facility] Routine Lab [address] [place], [place] [address] AST [Catalytic activity/Vol] 27 U/L Normal 14-40 [facility] Reference Lab Comment on above: Performed By: #### C MP, HBA1C #### [facility] Routine Lab [address] [place], [place] [address] Bilirubin [Mass/Vol] 0.4 mg/dL Normal 0.2-1.3 [facility] Reference Lab Comment on above: Performed By: #### C MP, HBA1C #### [facility] Routine Lab [address] [place], [place] [address] Calcium [Mass/Vol] 9.5 mg/dL Normal 8.5-10.2 [facility] Reference Lab Comment on above: Performed By: #### C MP, HBA1C #### [facility] Routine Lab [address] [place] [address] Chloride [Moles/Vol] 96 mmol/L Low 97-105 [facility] Reference Lab Comment on above: Performed By: #### C MP, HBA1C #### [facility] Routine Lab [address] [place], [place] [address] CO2 [Moles/Vol] 25 mmol/L Normal 22-30 [facility] Reference Lab Comment on above: Performed By: #### C MP, HBA1C #### [facility] Routine Lab [address] [place], [place] [address] Creatinine [Mass/Vol] 0.71 mg/dL Low 0.73-1.22 [facility] Reference Lab Comment on above: Performed By: #### C MP, HBA1C #### [facility] Routine Lab [address] [place] [id number] eGFR- Amer. >60 Normal [facility] Reference Lab Comment on above: Performed By: #### C MP, HBA1C #### [facility] Routine Lab [address] [place], [place] [address] eGFR-All Other Races >60 Normal [facility] Reference Lab Comment on above: Performed By: #### C MP, HBA1C #### [facility] Routine Lab [address] [place], [place] [address] Glucose [Mass/Vol] 323 mg/dL High 74-99 [facility] Reference Lab Comment on above: Performed By: #### C MP, HBA1C #### [facility] Routine Lab [address] [place], [place] [address] Potassium [Moles/Vol] 4.5 mmol/L Normal 3.7-5.1 [facility] Reference Lab Comment on above: Performed By: #### C MP, HBA1C #### [facility] Routine Lab [address] [place], [place] [address] Protein [Mass/Vol] 7.8 g/dL Normal 6.3-8.0 [facility] Reference Lab Comment on above: Performed By: #### C MP, HBA1C #### [facility] Routine Lab [address] [place], [place] [address] Sodium [Moles/Vol] 133 mmol/L Low 136-144 [facility] Reference Lab Comment on above: Performed By: #### C MP, HBA1C #### [facility] Routine Lab [address] [place], [place] [address] Urea nitrogen [Mass/Vol] 13 mg/dL Normal 9-24 [facility] Lab Comment on above: Performed By: #### C MP, HBA1C #### [facility] Routine Lab [address] [place], [place] [address] Hemoglobin A1con 10-02-2020 Glucose [Mass/Vol] 312 mg/dL Normal [facility] Reference Lab Comment on above: Performed By: #### C MP, HBA1C #### [facility] Routine Lab [address] [place], [place] [address] HbA1c (Bld) [Mass fraction] 12.5 % High 4.3-5.6 [facility] Reference Lab Comment on above: Performed By: #### C MP, HBA1C #### [facility] Routine Lab [address] [place], [place] [address] CNPTOUTREACHon 08-08-2020 CNPTOUTREACH Patient Outreach (COVAMN) ---- RACHID BENDER ([id number]) 1975 [facility] Date Time Provider Department 08/08/20 WEATHERS, RIYA GONZALEZ During your visit today, we recorded the following information about you: Allergies As of Date: 08/08/2020 Noted Allergy Reaction BUPROPION 10/04/2006 5 - Intolerance Comments: Muscle cramps, tongue biting METFORMIN 12/20/2017 6 - Diarrhea Comments: at doses over 1500mg /d Date Reviewed: 09/21/2018 Reviewed by: Elise Rodgers - Fully Assessed Order(s):SARS-COVID VACCINE 1ST DOSE APPT [[id number]] Order #: [id number] FUTURE Prescriptions as of 08/08/2020 Sig: CPAP 1 Units by MISCELLANEOUS rout* COMPOUNDED PRESCRIPTION CPAP machine with filters, m* COMPOUNDED PRESCRIPTION CPAP 13 cmH20 with humidifica* COMPOUNDED PRESCRIPTION Glucometer, test strips, lanc* Problem List As Of Date 08/08/2020 Noted Resolved Obstructive sleep apnea syndrome [G47.33] 09/23/2004 More... Lung field nodule - 6mm - Stable x4y [793.1] 10/02/2004 12/10/2016 More... Overweight [E66.9] 10/29/2006 ALLERGIC RHINITIS NOS [J30.9] 11/01/2007 Impaired fasting glucose [R73.01] 11/06/2008 09/07/2013 More... Pain in joint, shoulder region [M25.519] 10/23/2010 12/10/2016 Other affections of shoulder region, not elsewh*10/23/2010 12/10/2016 Essential hypertension, benign [I10] 09/01/2013 Diabetes type 2, controlled (HCC) [E11.9] 09/07/2013 More... Thoracic back pain [M54.6] 10/17/2013 12/10/2016 Bilateral thoracic back pain [M54.6] 10/17/2013 More... Cardiovascular event risk [Z91.89] 07/05/2017 More... Obesity, Class II, BMI 35-39.9 [E66.9] 06/20/2018 Encounter Status:Closed by EPIC, PRODUSER on 08/12/20 Normal [facility] Vital Signs Date Time Vital Sign Value Performing Clinician Faci geoffy 03-01-2025 21:38-0400 Body temperature 97.9 [degF] Dr. Derick Montes MD Work Phone: [facility] 03-01-2025 21:38-0400 Diastolic blood pressure 93 mm[Hg] Dr. Derick Montes MD Work Phone: [facility] 03-01-2025 21:38-0400 Heart rate 80 /min Dr. Derick Montes MD Work Phone: [facility] 03-01-2025 21:38-0400 Respiratory rate 16 /min Dr. Derick Montes MD Work Phone: [facility] 03-01-2025 21:38-0400 SaO2% (BldA) [Mass fraction] 98 % Dr. Derick Montes MD Work Phone: [facility] 03-01-2025 21:38-0400 Systolic blood pressure 170 mm[Hg] Dr. Derick Montes MD Work Phone: [facility] 03-01-2025 16:50-0400 Body height 182.[address] Derick Montes MD Work Phone: [facility] 03-01-2025 16:50-0400 Body mass index (BMI) [Ratio] 34.9 kg/m2 Dr. Derick Montes MD Work Phone: [facility] 03-01-2025 16:50-0400 Body weight 117.[address] Derick Montes MD Work Phone: [facility] 11-23-2023 15:19-0400 Body height 182.9 cm Ankush Orozco Jr., MD Work Phone: [facility] 11-23-2023 15:19-0400 Body mass index (BMI) [Ratio] 35.26 kg/m2 Ankush Orozco Jr., MD Work Phone: [facility] 11-23-2023 15:19-0400 Body weight 117.94 kg Ankush Orozco Jr., MD Work Phone: [facility] 11-23-2023 15:19-0400 Respiratory rate 20 /min Ankush Orozco Jr., MD Work Phone: [facility] 10-26-2023 13:45-0400 Body height 182.9 cm Ankush Orozco Jr., MD Work Phone: [facility] 10-26-2023 13:45-0400 Body mass index (BMI) [Ratio] 35.26 kg/m2 Ankush Orozco Jr., MD Work Phone: [facility] 10-26-2023 13:45-0400 Body weight 117.94 kg Ankush Orozco Jr., MD Work Phone: [facility] 10-26-2023 13:45-0400 Respiratory rate 18 /min Ankush Orozco Jr., MD Work Phone: [facility] 10-12-2023 09:29-0400 Body height 182.9 cm Ankush Orozco Jr., MD Work Phone: [facility] 10-12-2023 09:29-0400 Body mass index (BMI) [Ratio] 35.4 kg/m2 Ankush Orozco Jr., MD Work Phone: [facility] 10-12-2023 09:29-0400 Body weight 118.39 kg Ankush Orozco Jr., MD Work Phone: [facility] 10-12-2023 09:29-0400 Respiratory rate 20 /min Ankush Orozco Jr., MD Work Phone: [facility] Encounters Encounter Date Encounter Type Care Provider Facility Start: 03-16-2025 ambulatory Derick Montes Facilit y:[facility] Start: 03-09-2025 ambulatory Derick Jane Schbrandee Facilit y:[facility] Start: 03-02-2025 ambulatory Derick E Schinner Facilit y:[facility] Start: 03-01-2025 End: 03-01-2025 Emergency department patient visit Dr. Derick Montes MD Work Phone: -Emergency Department Work Phone: Start: 11-23-2023 End: 11-23-2023 Patient encounter procedure Ankush Orozco MD Work Phone: [facility] Comment on above: Laceration of left t humb without foreign body without damage to nail, subsequent encounter (Primary Dx) Start: 11-23-2023 End: 11-23-2023 ambulatory ANKUSH OROZCO JR Facility:[place] Start: 11-19-2023 End: 11-19-2023 ambulatory Brad Delatorre [facility] Comment on above: Pain of left thumb ( Primary Dx) Start: 11-08-2023 End: 11-08-2023 ambulatory Brad Delatorre [facility] Comment on above: Pain of left thumb ( Primary Dx) Start: 10-26-2023 End: 10-26-2023 Patient encounter procedure Ankush Orozco MD Work Phone: [facility] Comment on above: Laceration of left t humb without foreign body without damage to nail, subsequent encounter (Primary Dx); Laceration of extensor tendon of left thumb at hand level Start: 10-26-2023 End: 10-26-2023 ambulatory Soco Suh OTR/L Work Phone: [facility] Comment on above: Pain of left thumb ( Primary Dx) Start: 10-18-2023 End: 10-18-2023 ambulatory Brad Delatorre OT/L [facility] Comment on above: Pain of left thumb ( Primary Dx) Start: 10-14-2023 Preprocedural examination done Brad Delatorre OT/L [facility] Start: 10-14-2023 End: 10-14-2023 ambulatory ANKUSH OROZCO JR Facility:[facility] Start: 10-12-2023 End: 10-12-2023 Orders Only Ankush Oroczo MD Work Phone: [facility] Comment on above: Laceration of left t humb with tendon involvement, initial encounter (Primary Dx) Laceration of left t humb without foreign body without damage to nail, initial encounter (Primary Dx); Laceration of extensor tendon of left thumb at hand level Start: 10-11-2023 Telephone encounter Ankush Carrion MD Work Phone: [facility] Comment on above: ER F/U ([place] 10/09) Start: 10-10-2023 Emergency department patient visit [facility] Facility:[facility] Procedures Date Procedure Procedure Detail Performing Clinician Start: 03-01-2025 Radiologic exam ches t [address] Derick Montes MD Work Phone: Start: 03-01-[address] Derick Montes MD Work Phone: Start: 03-01-2025 CT of head without contrast Dr. Derick Montes MD Work Phone: Plan of Treatment Date Care Activity Detail Author Start: 03-01-2025 [facility] Start: 03-01-2025 [facility] Start: 01-30-2024 Influenza vaccination Influenz a Vaccine (Season Ended) [facility] Start: 12-13-2023 End: 12-13-2023 Follow-up encounter 12/13/2023 3:15 PM EDT OT/PT/Speech Visit [facility] [address] [place] [address] Soco Suh, OTR/L [facility] [place] [address] Hand OT Follow Up: [facility] Comment on above: Hand OT Follow Up: Start: 11-23-2023 End: 11-23-2023 Patient encounter procedure [facility] Comment on above: PO 5 EXP PENETRAT ING WOUND OLEFT THUMB AND REPAIR OF EXTENSOR TENDON 4wk f/u PO 10/13 EXP PENETRAT ING WOUND ON LEFT THUMB AND REPAIR OF EXTENSOR TENDON 4wk f/u Start: 11-19-2023 End: 11-19-2023 ambulatory 11/19/2023 3:30 PM EDT OT/PT/Speech Visit [facility] [address] [place] [address] Brad Delatorre, OT/L NEEDS LIFETIME CONSENT SIGNED -JS 11/09/2023 [facility] Comment on above: NEEDS LIFETIME CONSE NT SIGNED -JS 11/09/2023 Start: 11-08-2023 End: 11-08-2023 Follow-up encounter 11/08/2023 3:30 PM EDT OT/PT/Speech Visit [facility] [address] [place] [address] Brad Delatorre, OT/L Hand OT Follow Up: [facility] Comment on above: Hand OT Follow Up: Start: 10-26-2023 End: 10-26-2023 Patient encounter procedure 10/26/2023 1:45 PM EDT Office Visit [facility] [address] [place] [address] Ankush Orozco Jr., MD [address] [address] PO 10/13 EXP PENETRATING WOUND OLEFT THUMB AND REPAIR OF EXTENSOR TENDON [facility] Comment on above: PO 10/13 EXP PENETRAT ING WOUND OLEFT THUMB AND REPAIR OF EXTENSOR TENDON Start: 10-18-2023 End: 10-18-2023 ambulatory 10/18/2023 2:30 PM EDT OT/PT/Speech Visit [facility] [address] [place] [address] Brad Delatorre, OT/L post op hand [facility] Comment on above: post op hand Start: 10-14-2023 End: 10-14-2023 Admission to same day surgery center 10/14/2023 3:30 PM EDT - 10/14/2023 4:30 PM EDT Surgery LORENA VARGAS [address] [facility] [address] [place] [address] Ankush Orozco Jr., MD [address] [place], [place] [id number] EXPLORATION WOUND EXTREMITY PENETRATING, left thumb [facility] Comment on above: EXPLORATION WOUND EX TREMITY PENETRATING, left thumb Start: 10-14-2023 End: 10-14-2023 Exploration penetrating wound spx extremity EXPLORATION WOUND EXTREMITY PENETRATING Laceration of left thumb with tendon involvement, initial encounter 10/14/2023 3:30 PM EDT [facility] Start: 10-14-2023 End: 10-14-2023 Repair extensor tendon finger w/o graft each REPAIR EXTENSOR TENDON FINGER W/O FREE GRAFT Laceration of left thumb with tendon involvement, initial encounter 10/14/2023 3:30 PM EDT [facility] Start: 10-14-2023 Subsequent hospital visit by physician LORENA VARGAS Comment on above: Laceration of left t humb with tendon involvement, initial encounter [S61.012A] Start: 10-12-2023 End: 10-12-2023 Patient encounter procedure 10/12/2023 9:15 AM EDT Office Visit [facility] [address] [place] [address] Ankush Orozco Jr., MD [address] [place] [address] lt thumb lac, [place] ER 10/09 [facility] Comment on above: lt thumb lac, [place] E R 10/09 Start: 08-06-2023 Shingrix Vaccine (1 of 2) Shingrix Vaccine (1 of 2) [facility] Start: 05-31-2023 Behavioral Health Screening Behavioral Health Screening [facility] Start: 01-29-2023 Covid-19 Vaccine () Covid-19 Vaccine ( season) [facility] Start: 09-16-2019 Hepatitis B screening Urine Albumin:Creatinine Ratio [facility] Start: 09-16-2019 Hepatitis B surface antibody level LDL Cholesterol [facility] Start: 06-20-2019 BP Controlled (<130/80) BP Con trolled (<130/80) [facility] Start: 03-17-2019 Hemoglobin A1c measurement HbA1C [facility] Start: 2018 Screening for malign ant neoplasm of colon [facility] Start: 01-06-2018 Glaucoma screening Dilated Retinal E xam [facility] Start: 08-24-2017 Diabetic foot examination Diabetic Foot Exam [facility] Start: 09-28-2014 Pneumococcal vaccination Pneumococcal Vaccine (2 of 2 - PCV) [facility] Start: 1992 Urine microalbumin profile DTaP,Tdap,Td Vaccine (1 - Tdap) [facility] Start: 08-06-1991 Annual PCP Team It Desktop Support Technician baldomero Disease Visit Annual PCP Team Chronic Disease Visit [facility] Start: 08-06-1991 Hepatitis C screening Hepatitis C Sc reening [facility] Start: 08-06-1991 HIV screening HIV Screening [facility] Exploration penetrat ing wound spx extremity EXPLORATION WOUND EXTREMITY PENETRATING Laceration of left thumb with tendon involvement, initial encounter [facility] Patient Education ED High Blood Pressure Hypertension [facility] Work Phone: Repair extensor tend on finger w/o graft each REPAIR EXTENSOR TENDON FINGER W/O FREE GRAFT Laceration of left thumb with tendon involvement, initial encounter [facility] Troponin T.cardiac [Mass/volume] in Serum or Plasma by High sensitivity method [facility] Immunizations Immunization Date Immunization Notes Care Provider Augie gonzalez 09-28-2013 pneumococcal polysaccharide vaccine, 23 valent Ankush Orozco Jr., MD Work Phone: [facility] 05-31-2005 hepatitis A vaccine, unspecified formulation Ankush Orozco Jr., MD Work Phone: [facility] 05-31-2005 typhoid vaccine, unspecified formulation Ankush Orozco Jr., MD Work Phone: [facility] 11-28-1998 hepatitis A vaccine, unspecified formulation Ankush Orozco Jr., MD Work Phone: [facility] 11-28-1998 hepatitis B vaccine, adult dosage Ankush Orozco Jr., MD Work Phone: [facility] 07-01-1998 hepatitis B vaccine, adult dosage Ankush Orozco Jr., MD Work Phone: [facility] 05-31-1998 hepatitis B vaccine, adult dosage Ankush Orozco Jr., MD Work Phone: [facility] Payers Date Payer Category Payer Self-pay 2025 Unknown [id number] 2022 Unknown MMO MMO [employer] PPO [id number] 2022-Present [phone] [address] [place] [address] PPO [id number] 2018 Unknown [id number] Unknown [id number] Unknown [id number] Unknown [id number] Unknown [id number] Unknown [id number] Social History Date Type Detail Facility Start: 10-10-2023 [facility] History of tobacco use Cigarette Smoker [facility] Start: 10-10-2023 End: 10-11-2023 Cigarettes smoked current (pack per day) - Reported 0.5 [facility] Start: 10-10-2023 Tobacco use and exposure Smokeless tobacco non-user [facility] Start: 10-10-2023 End: 11-23-2023 Alcohol intake Current drinker of alcohol (finding) [facility] Start: 10-10-2023 End: 10-11-2023 Tobacco use panel [facility] National Score (1-10 0), lower number is lower risk 50 [facility] Start: 10-10-2023 Tobacco Comment cigs [facility] Start: 1975 Sex Assigned At Not on file [facility] Start: 03-01-2025 Tobacco smoking stat us NHIS Never smoked tobacco (finding) [facility] Start: 1975 Sex Assigned At Male W [facility] Medical Equipment Procedure Code Equipment Code Equipment Origin al Text Equipment Identifier Dates Glucometer, test strips, lancets + accessories. Up to once a day testing. Diabetes 2, 250.00, 3mo supply [id number] Start: 09-07-2013 Mental Status Date Assessment Result Facility 03-01-2025 Cognitive function Level Of Consciousness Awake [facility] Work Phone: Clinical Notes 10-11-2023 to 03-01-2025 Ankush Orozco Jr., MD - 11/23/2023 7:25 AM EDTBrad Delatorre, OT/L - 11/22/2023 8:21 AM Brad Martins OT/L - 11/09/2023 8:44 AM EDTCSoco higgins OTR/L - 10/26/2023 3:29 PM EDT Note Date & Type Note Facility 03-01-2025 Radiology Diagnostic study note [facility] Imaging Services [address] [place], [place] [address] Brain/Head without Contrast MR#: [id number] Acct: [id number] Name: RACHID BENDER Rep #: [id number] : 1975 M 49 From: Philippe Diehl MD PCP: Dr. Derick Montes MD Status: CO E ER Study:Brain/Head without Contrast Date of Exa m: 03/01/25 Exam# [id number] Ordering Dr: Eddy Escobar DO PROCEDURE: BRAIN/HEAD WITHOUT CONTRAST 03/01/2025 REASON FOR EXAM: HYPERTENSION TECHNIQUE: Procedure Code: CTBR Modality: CT Procedure: BRAIN/HEAD WITHOUT CONTRAST Coronal and Sagittal reconstruction series were provided. One or more dose reduction techniques were used (e.g., Automated exposure control, adjustment of the mA and/or kV according to patient size, use of iterative reconstruction technique. FINDINGS: The ventricles are normal in size and midline in position. No evidence acute hemorrhage or infarction. No extra-axial blood or fluid collections. The paranasal sinuses and mastoid air cells are clear. Calvarial vault and skull base are intact. CT/Brain/Head without Contrast IMPRESSION: No acute intracranial abnormality. Reading Location: [facility] CC: Dr. Eddy Escobar DO; Dr. Derick Montes MD ~ Custodial Services Manager: Signed [facility] 03-01-2025 Radiology Diagnostic study note [facility] Imaging Services [address] [place], [place] [address] Chest PA and Lateral MR#: [id number] Acct: [id number] Name: RACHID BENDER Rep #: [id number] : 1975 M 49 From: Taryn Crane MD PCP: Dr. Derick Montes MD Status: CO E ER Study:Chest PA and Lateral Date of Exam: 03/01/25 Exam# [id number] Ordering Dr: Eddy Escobar DO PROCEDURE: CHEST PA AND LATERAL 03/01/2025 REASON FOR EXAM: HYPERTENSION TECHNIQUE: Procedure Code: RADCXR Modality: DX Procedure: CHEST PA AND LATERAL COMPARISON: None FINDINGS: Hardware: Monitoring electrodes overlying chest wall. Heart: Heart size is mildly enlarged. Atherosclerotic calcification of aortic arch. Mediastinum: The mediastinal contour is unremarkable. Lungs: Bibasilar atelectasis. Mild bilateral pulmonary vascular congestion. Bones: Unremarkable RAD/Chest PA and Lateral IMPRESSION: Mild bilateral pulmonary vascular congestion. Reading Location: [facility] CC: Dr. Eddy Escobar DO; Dr. Derick Montes MD ~ Custodial Services Manager: Signed [facility] 01-14-2024 Note HNO ID: [id number] Author: SOCO SUH OTR/Liezt Service: ? Author Type: Occupational Therapist Type: Progress Notes Filed: 01/14/2024 13:00 Note Text: 01/14/2024 REHABILITATION AND SPORTS THERAPY OCCUPATIONAL THERAPY DISCONTINUANCE OF CARE Plan of Care Period: Start of Care Date: 10/18/23 Last Visit Date: 11/19/2023 Therapy Program: The following is a summary of the interventions provided for this episode of care; Therapeutic exercise, Therapeutic activities, Manual therapy, Self-penitentiary management, Orthotics management and training, Patient/Family/Caregiver Education, and Custom orthosis fabrication Assessment: Based on most recent visit, patient was progressing as expected toward functional goals based on home exercise program compliance, pain levels, and documented objective information regarding range of motion. Unable to formally assess goal achievement due to non-compliance with therapy plan of care. Reason for Discontinuation of Care: Patient has not returned to therapy or scheduled additional follow-up appointments. Soco Suh, OTR/L,T [facility] 11-23-2023 Note HNO ID: [id number] Author: ANKUSH OROZCO JR, MD Service: ? Author Type: Physician Type: Progress Notes Filed: 11/23/2023 15:30 Note Text: Patient presents with: Left Thumb - Established Patient, Post Op PROCEDURE EXPLORATION WOUND EXTREMITY PENETRATING, left thumb (Left) REPAIR EXTENSOR TENDON FINGER W/O FREE GRAFT, LEFT THUMB (Left) 10/14/2023 HISTORY OF PRESENT ILLNESS Rachid Bender presents for post operative follow up 6 weeks from surgery. He is doing well today. Current Concerns: None Pain control:Well controlled Currently taking pain medication:No Fever, chills or other signs of infection: None PHYSICAL EXAMINATION No erythema, cellulitis or drainage Incision lines are intact, no drainage noted. Scars are maturing nicely ROM: Near full Sensation:Normal sensation Brisk cap refill IMAGING No new imaging obtained. ASSESSMENT AND PLAN: Laceration of left thumb without foreign body without damage to nail, subsequent encounter (primary encounter diagnosis) I want him to continue to work on motion. He can come out of his splint. I will see him back as needed. Pt education provided on lifting restrictions Patient was instructed to call the office with any questions and/or concerns Scribe Attestation: By signing my name below, I, Johana Camarillo MA, attest that this documentation has been prepared under the direction and in the presence of Ankush Orozco Jr., MD. Electronically Signed: Johana Camarillo MA, Scribe. November 23, 2023 3:25 PM. Clinician Attestation Statement: The information in this document, created by the medical support assistant for me, accurately reflects the services I personally performed and the decisions made by me. I have reviewed and approved this document for accuracy. Ankush Orozco MD Please note: This note has been produced using speech recognition software and may contain errors related to that system including grammar, punctuation, spelling, gender and words and phrases that may be inappropriate. [facility] 11-23-2023 History of Presen t illness Narrative Patient presents with: Left Thumb - Established Patient, Post Op PROCEDURE EXPLORATION WOUND EXTREMITY PENETRATING, left thumb (Left) REPAIR EXTENSOR TENDON FINGER W/O FREE GRAFT, LEFT THUMB (Left) 10/14/2023 HISTORY OF PRESENT ILLNESS Rachid Bender presents for post operative follow up 6 weeks from surgery. He is doing well today. Current Concerns: None Pain control:Well controlled Currently taking pain medication:No Fever, chills or other signs of infection: None PHYSICAL EXAMINATION No erythema, cellulitis or drainage Incision lines are intact, no drainage noted. Scars are maturing nicely ROM: Near full Sensation:Normal sensation Brisk cap refill IMAGING No new imaging obtained. ASSESSMENT AND PLAN: Laceration of left thumb without foreign body without damage to nail, subsequent encounter (primary encounter diagnosis) I want him to continue to work on motion. He can come out of his splint. I will see him back as needed. Pt education provided on lifting restrictions Patient was instructed to call the office with any questions and/or concerns Scribe Attestation: By signing my name below, I, Johana Camarillo MA, attest that this documentation has been prepared under the direction and in the presence of Ankush Orozco Jr., MD. Electronically Signed: Johana Camarillo MA, Scribe. November 23, 2023 3:25 PM. Clinician Attestation Statement: The information in this document, created by the medical support assistant for me, accurately reflects the services I personally performed and the decisions made by me. I have reviewed and approved this document for accuracy. Ankush Orozco MD Please note: This note has been produced using speech recognition software and may contain errors related to that system including grammar, punctuation, spelling, gender and words and phrases that may be inappropriate. documented in this encounter [facility] 11-22-2023 Note HNO ID: [id number] Author: BRAD DELATORRE OT/L Service: ? Author Type: Occupational Therapist Type: Progress Notes Filed: 11/22/2023 08:21 Note Text: Episode Visit Count: 4 Therapist That Will Accept/Oversee The Plan Of Care: GLORIA Elizabeth/Lizet, T Start of Care Date: 10/18/23 Onset Date: 10/10/23 Plan of Care Certification Date: 10/18/23 Patient Identified by Name and Date of : Yes REHABILITATION AND SPORTS THERAPY OCCUPATIONAL THERAPY TREATMENT NOTE ASSESSMENT: Rachid Bender tolerated the session with no issues. He demonstrated improvements in thumb AROM within confines if EPL repair protocol. The patient will continue to benefit from ongoing skilled occupational therapy to progress toward set goals and to continue with post-operative protocol. Current Frequency: 1x/week Duration: 12 weeks Total Number of Visits Planned: 12 Planned Treatment Interventions: Custom orthosis fabrication, Prefabricated orthosis fitting, Therapeutic exercise (98091), Therapeutic activities (28805), Manual therapy (18812), Neuromuscular re-education (49466), Self-penitentiary management (72505), Orthotics management and training (07129,06648), Paraffin Bath (37718), Fluidotherapy (71513) PLAN FOR NEXT VISIT: Progress per EPL repair protocol - at 6 weeks can DC orthotic SUBJECTIVE: I can't wait until I don't have to wear this splint anymore - I have been following the precautions Functional Limitations: lifting, physical activities, recreational activities Pain: Pain Pain Level: 2 Pain Location: Thumb - Left, Forearm - Left Description: Sore, Stiffness Frequency: Intermittent (Patient reports aching increases through the day and concedes that he is tensing up his thumb extensors throughout the day.) Post Treatment Pain Post Treatment Pain Level: Better Post Treatment Pain Location: Thumb - Left Post Treatment Pain Description: Sore OBJECTIVE MEASURES WITH LEVEL OF FUNCTION: Hand Skin / Wound: Scar Scar: Tender, Mild adherance (Sutures removed today) Edema Location: Left thumb Edema Description: Mild Shoulder AROM: WFL Elbow AROM: WFL Wrist AROM: Testing not indicated Left Hand AROM: WFL (With stiffness) Thumb AROM: Left Limitation (Testing not indicated at this time) Strength: (Not indicated per protocol) Sensation: Denies tingling or numbness Dexterity/Coordination: Observed to be functional UE AROM Left Hand AROM: WFL (With stiffness) Thumb AROM: Left Limitation (Testing not indicated at this time) Hand AROM L Thumb MP Flexion : 22 Degrees L Thumb IP Extension : 0 Degrees L Thumb IP Flexion : 37 Degrees (Reviewed EPL protocol and precautions - Patient has been complaint with advancing no more than 20 degrees per week) L Index Finger Distal Palmar Crease (cm): 0 cm L Middle Finger Distal Palmar Crease (cm): 0 cm L Ring Finger Distal Palmar Crease (cm): 0 cm L Little Finger Distal Palmar Crease (cm): 0 cm TREATMENT: Therapeutic Exercise: 1: Reviewed EA EPL repair protocol - MCP active flexion to 40 degrees, able to actively extend to neutral to be completed for 8-10 minutes every 90-120 minutes daily. Patient has been complaint with protocol 2: Reviewed gentle wrist tenodesis out of orthtoic with fingers and thumb relaxed - patient demonstrated back without issue - wrist is moving WFL 3: Progressed thumb flexion to toucching tip of RF with CMC, MCP and IP combined flexion within EAM protocol guidelines as to not hyperflex the IP Skilled Intervention: Patient was educated in proper exercise technique and purpose for exercises. Skilled judgment was used in selection of appropriate interventions. Provided written instruction for home exercise program to facilitate proper performance and compliance. Patient education as noted. Self-Retirement Management: 1: Reviewed diagnosis, stages of protocol including use of splint or a thumb extension splint until at least 6 weeks postop, precautions and POC. 2: Reviewed use of silicone scar pad and reviewed scar massage/nobilization to prevent adherence - advanced to gentle differential scar gliding, patient able to demosntrtae back without complication Skilled Intervention: Skilled judgment in the selection of proper modification for activity of daily living/home management based on clinical presentation, deficits, and needs. Reviewed patient specific diagnosis in relation to activities of daily living/home management. Activity progression based on professional judgement. Billing Therapeutic Exercise Treatment Minutes: 15 Orth/Pros Adjust/Train (subsequent) Treatment Minutes: 15 Skilled Treatment Time Minutes (timed and untimed codes): 30 Total Session Time (minutes): 30 Session Start Time : 1530 Session Stop Time : 1600 Brad Delatorre OT/Lizet [facility] 11-22-2023 History of Presen t illness Narrative Episode Visit Count: 4 Therapist That Will Accept/Oversee The Plan Of Care: GLORIA Elizabeth/Lizet, CHT Start of Care Date: 10/18/23 Onset Date: 10/10/23 Plan of Care Certification Date: 10/18/23 Patient Identified by Name and Date of : Yes REHABILITATION AND SPORTS THERAPY OCCUPATIONAL THERAPY TREATMENT NOTE ASSESSMENT: Rachid Bender tolerated the session with no issues. He demonstrated improvements in thumb AROM within confines if EPL repair protocol. The patient will continue to benefit from ongoing skilled occupational therapy to progress toward set goals and to continue with post-operative protocol. Current Frequency: 1x/week Duration: 12 weeks Total Number of Visits Planned: 12 Planned Treatment Interventions: Custom orthosis fabrication, Prefabricated orthosis fitting, Therapeutic exercise (76607), Therapeutic activities (52263), Manual therapy (89882), Neuromuscular re-education (75374), Self-penitentiary management (47824), Orthotics management and training ([id number],03390), Paraffin Bath (53410), Fluidotherapy (07945) PLAN FOR NEXT VISIT: Progress per EPL repair protocol - at 6 weeks can DC orthotic SUBJECTIVE: I can't wait until I don't have to wear this splint anymore - I have been following the precautions Functional Limitations: lifting, physical activities, recreational activities Pain: Pain Pain Level: 2 Pain Location: Thumb - Left, Forearm - Left Description: Sore, Stiffness Frequency: Intermittent (Patient reports aching increases through the day and concedes that he is tensing up his thumb extensors throughout the day.) Post Treatment Pain Post Treatment Pain Level: Better Post Treatment Pain Location: Thumb - Left Post Treatment Pain Description: Sore OBJECTIVE MEASURES WITH LEVEL OF FUNCTION: Hand Skin / Wound: Scar Scar: Tender, Mild adherance (Sutures removed today) Edema Location: Left thumb Edema Description: Mild Shoulder AROM: WFL Elbow AROM: WFL Wrist AROM: Testing not indicated Left Hand AROM: WFL (With stiffness) Thumb AROM: Left Limitation (Testing not indicated at this time) Strength: (Not indicated per protocol) Sensation: Denies tingling or numbness Dexterity/Coordination: Observed to be functional UE AROM Left Hand AROM: WFL (With stiffness) Thumb AROM: Left Limitation (Testing not indicated at this time) Hand AROM L Thumb MP Flexion : 22 Degrees L Thumb IP Extension : 0 Degrees L Thumb IP Flexion : 37 Degrees (Reviewed EPL protocol and precautions - Patient has been complaint with advancing no more than 20 degrees per week) L Index Finger Distal Palmar Crease (cm): 0 cm L Middle Finger Distal Palmar Crease (cm): 0 cm L Ring Finger Distal Palmar Crease (cm): 0 cm L Little Finger Distal Palmar Crease (cm): 0 cm TREATMENT: Therapeutic Exercise: 1: Reviewed [facility] EPL repair protocol - MCP active flexion to 40 degrees, able to actively extend to neutral to be completed for 8-10 minutes every 90-120 minutes daily. Patient has been complaint with protocol 2: Reviewed gentle wrist tenodesis out of orthtoic with fingers and thumb relaxed - patient demonstrated back without issue - wrist is moving WFL 3: Progressed thumb flexion to toucching tip of RF with CMC, MCP and IP combined flexion within EA protocol guidelines as to not hyperflex the IP Skilled Intervention: Patient was educated in proper exercise technique and purpose for exercises. Skilled judgment was used in selection of appropriate interventions. Provided written instruction for home exercise program to facilitate proper performance and compliance. Patient education as noted. Self-Retirement Management: 1: Reviewed diagnosis, stages of protocol including use of splint or a thumb extension splint until at least 6 weeks postop, precautions and POC. 2: Reviewed use of silicone scar pad and reviewed scar massage/nobilization to prevent adherence - advanced to gentle differential scar gliding, patient able to demosntrtae back without complication Skilled Intervention: Skilled judgment in the selection of proper modification for activity of daily living/home management based on clinical presentation, deficits, and needs. Reviewed patient specific diagnosis in relation to activities of daily living/home management. Activity progression based on professional judgement. Billing Therapeutic Exercise Treatment Minutes: 15 Orth/Pros Adjust/Train (subsequent) Treatment Minutes: 15 Skilled Treatment Time Minutes (timed and untimed codes): 30 Total Session Time (minutes): 30 Session Start Time : 1530 Session Stop Time : 1600 Brad Delatorre OT/Lizet documented in this encounter [facility] 11-09-2023 Note HNO ID: [id number] Author: BRAD DELATORRE OT/L Service: ? Author Type: Occupational Therapist Type: Progress Notes Filed: 11/16/2023 12:49 Note Text: Episode Visit Count: 3 Therapist That Will Accept/Oversee The Plan Of Care: VICTOR MANUEL Elizabeth, T Start of Care Date: 10/18/23 Onset Date: 10/10/23 Plan of Care Certification Date: 10/18/23 Patient Identified by Name and Date of : Yes REHABILITATION AND SPORTS THERAPY OCCUPATIONAL THERAPY TREATMENT NOTE ASSESSMENT: Rachid Bender is 2.5 weeks s/p surgery and tolerated the session with no issues. Reports not wearing orthotic at work, advised against this in order to protect repair. He demonstrated improvements in thumb AROM as prescribe per [facility] EPL protocol. The patient will continue to benefit from ongoing skilled occupational therapy to progress toward set goals and to continue with post-operative protocol. Current Frequency: 1x/week Duration: 12 weeks Total Number of Visits Planned: 12 Planned Treatment Interventions: Custom orthosis fabrication, Prefabricated orthosis fitting, Therapeutic exercise (62799), Therapeutic activities (69602), Manual therapy (95215), Neuromuscular re-education (97514), Self-penitentiary management (81407), Orthotics management and training ([id number]), Paraffin Bath (53528), Fluidotherapy (07913) PLAN FOR NEXT VISIT: Progress per EPL repair protocol SUBJECTIVE: I haven't been wearing my splint at work Functional Limitations: lifting, physical activities, recreational activities Pain: Pain Pain Level: 2 Pain Location: Thumb - Left, Forearm - Left Description: Sore, Dull Frequency: Intermittent (Patient reports aching increases through the day and concedes that he is tensing up his thumb extensors throughout the day.) Post Treatment Pain Post Treatment Pain Level: Better Post Treatment Pain Location: Thumb - Left Post Treatment Pain Description: Sore OBJECTIVE MEASURES WITH LEVEL OF FUNCTION: Hand Skin / Wound: Scar Scar: Tender, Mild adherance (Sutures removed today) Edema Location: Left thumb Edema Description: Mild Shoulder AROM: WFL Elbow AROM: WFL Wrist AROM: Testing not indicated Left Hand AROM: WFL (With stiffness) Thumb AROM: Left Limitation (Testing not indicated at this time) Strength: (Not indicated per protocol) Sensation: Denies tingling or numbness Dexterity/Coordination: Observed to be functional UE AROM Left Hand AROM: WFL (With stiffness) Thumb AROM: Left Limitation (Testing not indicated at this time) Hand AROM L Thumb MP Flexion : 20 Degrees L Thumb IP Extension : 0 Degrees L Thumb IP Flexion : 35 Degrees (Patient correctly flex thumb to 20 degrees as per protocol during exercises) L Index Finger Distal Palmar Crease (cm): 0 cm L Middle Finger Distal Palmar Crease (cm): 0 cm L Ring Finger Distal Palmar Crease (cm): 0 cm L Little Finger Distal Palmar Crease (cm): 0 cm TREATMENT: Therapeutic Exercise: 1: Reviewed [facility] EPL repair protocol - MCP active flexion to 40 degrees, able to actively extend to neutral to be completed for 8-10 minutes every 90-120 minutes daily. Patient demonstrated exercises correctly and just under 40 degrees active flexion measured to help patient verify amount of flexion 2: Taught gentle wrist tenodesis out of orthtoic with fingers and thumb relaxed - patient demonstrated back without issue 3: Progressed thumb flexion to toucching tip of LF with CMC, MCP and IP combined flexion within EAM protocol guidelines Skilled Intervention: Patient was educated in proper exercise technique and purpose for exercises. Skilled judgment was used in selection of appropriate interventions. Provided written instruction for home exercise program to facilitate proper performance and compliance. Patient education as noted. Self-Retirement Management: 1: Reviewed diagnosis, stages of protocol including use of splint or a thumb extension splint until at least 6 weeks postop, precautions and POC. 2: Issued silicone scar pad and reviewed scar massage/nobilization to prevent adherence 3: Reviewed importaance of remaining in orthtoic for protection - patient verbalized understanding Skilled Intervention: Skilled judgment in the selection of proper modification for activity of daily living/home management based on clinical presentation, deficits, and needs. Reviewed patient specific diagnosis in relation to activities of daily living/home management. Activity progression based on professional judgement. Billing Therapeutic Exercise Treatment Minutes: 30 Orth/Pros Adjust/Train (subsequent) Treatment Minutes: 15 Skilled Treatment Time Minutes (timed and untimed codes): 45 Total Session Time (minutes): 45 Session Start Time : 1530 Session Stop Time : 1615 Brad Delatorre OT/L [facility] 11-09-2023 History of Presen t illness Narrative Episode Visit Count: 3 Therapist That Will Accept/Oversee The Plan Of Care: GLORIA Elizabeth/Lizet, CHT Start of Care Date: 10/18/23 Onset Date: 10/10/23 Plan of Care Certification Date: 10/18/23 Patient Identified by Name and Date of : Yes REHABILITATION AND SPORTS THERAPY OCCUPATIONAL THERAPY TREATMENT NOTE ASSESSMENT: Rachid Bender is 2.5 weeks s/p surgery and tolerated the session with no issues. Reports not wearing orthotic at work, advised against this in order to protect repair. He demonstrated improvements in thumb AROM as prescribe per [facility] EPL protocol. The patient will continue to benefit from ongoing skilled occupational therapy to progress toward set goals and to continue with post-operative protocol. Current Frequency: 1x/week Duration: 12 weeks Total Number of Visits Planned: 12 Planned Treatment Interventions: Custom orthosis fabrication, Prefabricated orthosis fitting, Therapeutic exercise (41171), Therapeutic activities (86262), Manual therapy (35572), Neuromuscular re-education (20843), Self-penitentiary management (14155), Orthotics management and training ([id number]), Paraffin Bath (19336), Fluidotherapy (43235) PLAN FOR NEXT VISIT: Progress per EPL repair protocol SUBJECTIVE: I haven't been wearing my splint at work Functional Limitations: lifting, physical activities, recreational activities Pain: Pain Pain Location: Thumb - Left, Forearm - Left Frequency: Intermittent (Patient reports aching increases through the day and concedes that he is tensing up his thumb extensors throughout the day.) Post Treatment Pain Post Treatment Pain Level: Better Post Treatment Pain Location: Thumb - Left Post Treatment Pain Description: Sore Post Treatment Symptoms: Demonstrated retrograde massage with patient and patient noted good decrease in pain. OBJECTIVE MEASURES WITH LEVEL OF FUNCTION: Hand Skin / Wound: Scar Scar: Tender, Mild adherance (Sutures removed today) Edema Location: Left thumb Edema Description: Mild Shoulder AROM: WFL Elbow AROM: WFL Wrist AROM: Testing not indicated Left Hand AROM: WFL (With stiffness) Thumb AROM: Left Limitation (Testing not indicated at this time) Strength: (Not indicated per protocol) Sensation: Denies tingling or numbness Dexterity/Coordination: Observed to be functional UE AROM Left Hand AROM: WFL (With stiffness) Thumb AROM: Left Limitation (Testing not indicated at this time) Hand AROM L Thumb IP Extension : 0 Degrees L Thumb IP Flexion : 20 Degrees (Patient correctly flex thumb to 20 degrees as per protocol during exercises) L Index Finger Distal Palmar Crease (cm): 0 cm L Middle Finger Distal Palmar Crease (cm): 0 cm L Ring Finger Distal Palmar Crease (cm): 0 cm L Little Finger Distal Palmar Crease (cm): 0 cm TREATMENT: Therapeutic Exercise: 1: Reviewed [facility] EPL repair protocol - MCP active flexion to 40 degrees, able to actively extend to neutral to be completed for 8-10 minutes every 90-120 minutes daily. Patient demonstrated exercises correctly and just under 40 degrees active flexion measured to help patient verify amount of flexion 2: Taught gentle wrist tenodesis out of orthtoic with fingers and thumb relaxed - patient demonstrated back without issue 3: Progressed thumb flexion to toucching tip of LF with CMC, MCP and IP combined flexion within EAM protocol guidelines Skilled Intervention: Patient was educated in proper exercise technique and purpose for exercises. Skilled judgment was used in selection of appropriate interventions. Provided written instruction for home exercise program to facilitate proper performance and compliance. Patient education as noted. Self-Retirement Management: 1: Reviewed diagnosis, stages of protocol including use of splint or a thumb extension splint until at least 6 weeks postop, precautions and POC. 2: Issued silicone scar pad and reviewed scar massage/nobilization to prevent adherence 3: Reviewed importaance of remaining in orthtoic for protection - patient verbalized understanding Skilled Intervention: Skilled judgment in the selection of proper modification for activity of daily living/home management based on clinical presentation, deficits, and needs. Reviewed patient specific diagnosis in relation to activities of daily living/home management. Activity progression based on professional judgement. Billing Skilled Treatment Time Minutes (timed and untimed codes): 25 Total Session Time (minutes): 45 Session Start Time : 1530 Session Stop Time : 1615 CAMILLA Elizabeth documented in this encounter [facility] 10-26-2023 Note HNO ID: [id number] Author: SOCO SUH OTR/L Service: ? Author Type: Occupational Therapist Type: Progress Notes Filed: 10/26/2023 15:31 Note Text: Episode Visit Count: 2 Therapist That Will Accept/Oversee The Plan Of Care: VICTOR MANUEL Elizabeth, CHLm Start of Care Date: 10/18/23 Onset Date: 10/10/23 Plan of Care Certification Date: 10/18/23 Patient Identified by Name and Date of : Yes REHABILITATION AND SPORTS THERAPY OCCUPATIONAL THERAPY TREATMENT NOTE ASSESSMENT: Rachid Bender tolerated the session with increased symptoms. He demonstrated improvements in use of modalities to reduce pain and exercise compliance. The patient will continue to benefit from ongoing skilled occupational therapy to progress toward set goals. Current Frequency: 1x/week Duration: 12 weeks Total Number of Visits Planned: 12 Planned Treatment Interventions: Custom orthosis fabrication, Prefabricated orthosis fitting, Therapeutic exercise (32045), Therapeutic activities (02456), Manual therapy (57488), Neuromuscular re-education (44675), Self-penitentiary management (45975), Orthotics management and training ([id number]), Paraffin Bath (66742), Fluidotherapy (20251) PLAN FOR NEXT VISIT: Progress per EPL repair protocol SUBJECTIVE: 2 weeks s/p LUE thumb EPL repair in zone T3-4. Patient saw Dr. Parker for first postop visit. Surgeon is pleased with progress. Patient had several questions about protocol/exercise routine. Functional Limitations: lifting, physical activities, recreational activities Pain: Pain Pain Level: 4 Pain Location: Thumb - Left, Forearm - Left Description: Aching, Sore Frequency: Intermittent (Patient reports aching increases through the day and concedes that he is tensing up his thumb extensors throughout the day.) Post Treatment Pain Post Treatment Pain Level: Better Post Treatment Pain Location: Thumb - Left Post Treatment Pain Description: Sore Post Treatment Symptoms: Demonstrated retrograde massage with patient and patient noted good decrease in pain. OBJECTIVE MEASURES WITH LEVEL OF FUNCTION: Hand Skin / Wound: Scar Scar: Tender, Mild adherance (Sutures removed today) Edema Location: Left thumb Edema Description: Mild Shoulder AROM: WFL Elbow AROM: WFL Wrist AROM: Testing not indicated Left Hand AROM: WFL (With stiffness) Thumb AROM: Left Limitation (Testing not indicated at this time) Strength: (Not indicated per protocol) Sensation: Denies tingling or numbness Dexterity/Coordination: Observed to be functional UE AROM Left Hand AROM: WFL (With stiffness) Thumb AROM: Left Limitation (Testing not indicated at this time) Hand AROM L Thumb IP Extension : 0 Degrees L Thumb IP Flexion : 20 Degrees (Patient correctly flex thumb to 20 degrees as per protocol during exercises) L Index Finger Distal Palmar Crease (cm): 0 cm L Middle Finger Distal Palmar Crease (cm): 0 cm L Ring Finger Distal Palmar Crease (cm): 0 cm L Little Finger Distal Palmar Crease (cm): 0 cm TREATMENT: Therapeutic Exercise: 1: [facility] EPL repair protocol - MCP active flexion to 20 degrees, passive extenison to neutral to be completed for 8-10 minutes every 90-120 minutes daily. Patient demonstrated exercises correctly and 20 degrees active flexion measured to help patient verify amount of flexion to perform in home program. Patient agreed to continue with exercises as per tolerance. 2: Patient advised to perform gentle elbow and finger AROM with splint on to help alleviate stiffness. Patient performed correctly. 3: Patient instructed to perform gentle submaximal wrist AROM when he removes splint to do thumb exercises. Patient advised to stay within 20 degree range to help alleviate stiffness. Patient performed correctly and agreed to continuing home program. Skilled Intervention: Patient was educated in proper exercise technique and purpose for exercises. Reviewed and educated patient on additions/changes for home exercise program . Skilled judgment was used in selection of appropriate interventions. Self-Retirement Management: 1: Reviewed diagnosis, stages of protocol including use of splint or a thumb extension splint until at least 8 weeks postop, precautions and POC. 2: Reviewed edema and pain reduction techniques with emphasis on retrograde massage to forearm as patient has noted increased forearm pain and concedes that he is tensing his muscles in his arm while wearing the splint. Patient noted good reduction in pain status post retrograde massage to forearm and fingers. Patient warned no PROM to thumb during exercise and or during massage. Any massage to thumb needs to be gentle. Patient agreed. 3: ADL/IADL task modification training 4: Patient instructed in scar mobilization and agreed to perform as tolerated. Skilled Intervention: Skilled judgment in the selection of proper modification for activity of daily living/home management based on cl (more content not included)... [facility] 10-26-2023 History of Presen t illness Narrative Episode Visit Count: 2 Therapist That Will Accept/Oversee The Plan Of Care: GLORIA Elizabeth/Lizet, ALTAF Start of Care Date: 10/18/23 Onset Date: 10/10/23 Plan of Care Certification Date: 10/18/23 Patient Identified by Name and Date of : Yes REHABILITATION AND SPORTS THERAPY OCCUPATIONAL THERAPY TREATMENT NOTE ASSESSMENT: Rachid Bender tolerated the session with increased symptoms. He demonstrated improvements in use of modalities to reduce pain and exercise compliance. The patient will continue to benefit from ongoing skilled occupational therapy to progress toward set goals. Current Frequency: 1x/week Duration: 12 weeks Total Number of Visits Planned: 12 Planned Treatment Interventions: Custom orthosis fabrication, Prefabricated orthosis fitting, Therapeutic exercise (57455), Therapeutic activities (25373), Manual therapy (48169), Neuromuscular re-education (35486), Self-penitentiary management (51881), Orthotics management and training ([id number]), Paraffin Bath (48136), Fluidotherapy (42170) PLAN FOR NEXT VISIT: Progress per EPL repair protocol SUBJECTIVE: 2 weeks s/p LUE thumb EPL repair in zone T3-4. Patient saw Dr. Parker for first postop visit. Surgeon is pleased with progress. Patient had several questions about protocol/exercise routine. Functional Limitations: lifting, physical activities, recreational activities Pain: Pain Pain Level: 4 Pain Location: Thumb - Left, Forearm - Left Description: Aching, Sore Frequency: Intermittent (Patient reports aching increases through the day and concedes that he is tensing up his thumb extensors throughout the day.) Post Treatment Pain Post Treatment Pain Level: Better Post Treatment Pain Location: Thumb - Left Post Treatment Pain Description: Sore Post Treatment Symptoms: Demonstrated retrograde massage with patient and patient noted good decrease in pain. OBJECTIVE MEASURES WITH LEVEL OF FUNCTION: Hand Skin / Wound: Scar Scar: Tender, Mild adherance (Sutures removed today) Edema Location: Left thumb Edema Description: Mild Shoulder AROM: WFL Elbow AROM: WFL Wrist AROM: Testing not indicated Left Hand AROM: WFL (With stiffness) Thumb AROM: Left Limitation (Testing not indicated at this time) Strength: (Not indicated per protocol) Sensation: Denies tingling or numbness Dexterity/Coordination: Observed to be functional UE AROM Left Hand AROM: WFL (With stiffness) Thumb AROM: Left Limitation (Testing not indicated at this time) Hand AROM L Thumb IP Extension : 0 Degrees L Thumb IP Flexion : 20 Degrees (Patient correctly flex thumb to 20 degrees as per protocol during exercises) L Index Finger Distal Palmar Crease (cm): 0 cm L Middle Finger Distal Palmar Crease (cm): 0 cm L Ring Finger Distal Palmar Crease (cm): 0 cm L Little Finger Distal Palmar Crease (cm): 0 cm TREATMENT: Therapeutic Exercise: 1: [facility] EPL repair protocol - MCP active flexion to 20 degrees, passive extenison to neutral to be completed for 8-10 minutes every 90-120 minutes daily. Patient demonstrated exercises correctly and 20 degrees active flexion measured to help patient verify amount of flexion to perform in home program. Patient agreed to continue with exercises as per tolerance. 2: Patient advised to perform gentle elbow and finger AROM with splint on to help alleviate stiffness. Patient performed correctly. 3: Patient instructed to perform gentle submaximal wrist AROM when he removes splint to do thumb exercises. Patient advised to stay within 20 degree range to help alleviate stiffness. Patient performed correctly and agreed to continuing home program. Skilled Intervention: Patient was educated in proper exercise technique and purpose for exercises. Reviewed and educated patient on additions/changes for home exercise program . Skilled judgment was used in selection of appropriate interventions. Self-Retirement Management: 1: Reviewed diagnosis, stages of protocol including use of splint or a thumb extension splint until at least 8 weeks postop, precautions and POC. 2: Reviewed edema and pain reduction techniques with emphasis on retrograde massage to forearm as patient has noted increased forearm pain and concedes that he is tensing his muscles in his arm while wearing the splint. Patient noted good reduction in pain status post retrograde massage to forearm and fingers. Patient warned no PROM to thumb during exercise and or during massage. Any massage to thumb needs to be gentle. Patient agreed. 3: ADL/IADL task modification training 4: Patient instructed in scar mobilization and agreed to perform as tolerated. Skilled Intervention: Skilled judgment in the selection of proper modification for activity of daily living/home management based on clinical presentation, deficits, and needs. Reviewed patient specific diagnosis in relation to activities of daily living/home management. Activity progression based on professional judgement. Reviewed and educated patient on additions/changes for home program Orthotic/Prosthetic Adjust/Train (Subsequent): OT Orthotic/Prosthetic Adjust/Train (Subsequent): Reissued stockinette for under splint to improve comfort and slightly adjusted distal end of splint at thumb for comfort. Good fit noted with full thumb IP extension noted in splint. Skilled Intervention:Clinical knowledge and skills required for custom orthotic fabrication and wearing schedule Required independence for donning/doffing orthosis Billing Therapeutic Exercise Treatment Minutes: 15 Self-Care/Home Management Treatment Minutes: 5 Orth/Pros Adjust/Train (subsequent) Treatment Minutes: 5 Skilled Treatment Time Minutes (timed and untimed codes): 25 Total Session Time (minutes): 25 Session Start Time : 1415 Session Stop Time : 1440 VICTOR MANUEL Almaguer,CHT documented in this encounter [facility] 10-26-2023 Note HNO ID: [id number] Author: ANKUSH OROZCO JR, MD Service: ? Author Type: Physician Type: Progress Notes Filed: 10/26/2023 13:55 Note Text: Patient presents with: Left Thumb - Post Op PROCEDURE EXPLORATION WOUND EXTREMITY PENETRATING, left thumb (Left) REPAIR EXTENSOR TENDON FINGER W/O FREE GRAFT, LEFT THUMB (Left) 10/14/2023 HISTORY OF PRESENT ILLNESS Rachid Bender presents for post operative follow up 2 weeks from surgery. He is doing well today. He is wearing his splint. Current Concerns: none Pain control:Well controlled. Currently taking pain medication:No Fever, chills or other signs of infection: None PHYSICAL EXAMINATION No erythema, cellulitis or drainage Incision lines are intact, no drainage noted. Scars are maturing nicely ROM: No malrotation when making a fist. Sensation:Normal sensation Brisk cap refill IMAGING No imaging obtained. ASSESSMENT AND PLAN: Laceration of left thumb without foreign body without damage to nail, subsequent encounter (primary encounter diagnosis) Laceration of extensor tendon of left thumb at hand level I did remove his sutures today. I want him to continue his splint. I will see him back in one month. Pt education provided on lifting restrictions Patient was instructed to call the office with any questions and/or concerns Scribe Attestation: By signing my name below, Nohemy, Johana Camarillo MA, attest that this documentation has been prepared under the direction and in the presence of Ankush Orozco Jr., MD. Electronically Signed: Johana Camarillo MA, Scribe. October 26, 2023 1:48 PM. Clinician Attestation Statement: The information in this document, created by the medical support assistant for me, accurately reflects the services I personally performed and the decisions made by me. I have reviewed and approved this document for accuracy. Ankush Orozco MD Please note: This note has been produced using speech recognition software and may contain errors related to that system including grammar, punctuation, spelling, gender and words and phrases that may be inappropriate. [facility] 10-26-2023 History of Presen t illness Narrative Patient presents with: Left Thumb - Post Op PROCEDURE EXPLORATION WOUND EXTREMITY PENETRATING, left thumb (Left) REPAIR EXTENSOR TENDON FINGER W/O FREE GRAFT, LEFT THUMB (Left) 10/14/2023 HISTORY OF PRESENT ILLNESS Rachid Bender presents for post operative follow up 2 weeks from surgery. He is doing well today. He is wearing his splint. Current Concerns: none Pain control:Well controlled. Currently taking pain medication:No Fever, chills or other signs of infection: None PHYSICAL EXAMINATION No erythema, cellulitis or drainage Incision lines are intact, no drainage noted. Scars are maturing nicely ROM: No malrotation when making a fist. Sensation:Normal sensation Brisk cap refill IMAGING No imaging obtained. ASSESSMENT AND PLAN: Laceration of left thumb without foreign body without damage to nail, subsequent encounter (primary encounter diagnosis) Laceration of extensor tendon of left thumb at hand level I did remove his sutures today. I want him to continue his splint. I will see him back in one month. Pt education provided on lifting restrictions Patient was instructed to call the office with any questions and/or concerns Scribe Attestation: By signing my name below, Nohemy, Johana Camarillo MA, attest that this documentation has been prepared under the direction and in the presence of Ankush Orozco Jr., MD. Electronically Signed: Johana Camarillo MA, Scribe. October 26, 2023 1:48 PM. Clinician Attestation Statement: The information in this document, created by the medical support assistant for me, accurately reflects the services I personally performed and the decisions made by me. I have reviewed and approved this document for accuracy. Ankush Orzoco MD Please note: This note has been produced using speech recognition software and may contain errors related to that system including grammar, punctuation, spelling, gender and words and phrases that may be inappropriate. documented in this encounter [facility] 10-18-2023 Note HNO ID: [id number] Author: BRAD DELATORRE OT/Lizet Service: ? Author Type: Occupational Therapist Type: Progress Notes Filed: 10/18/2023 15:16 Note Text: Episode Visit Count: 1 Therapist That Will Accept/Oversee The Plan Of Care: GLORIA Elizabeth/Lizet, CHT Start of Care Date: 10/18/23 Plan of Care Certification Date: 10/18/23 Patient Identified by Name and Date of : Yes [facility] OCCUPATIONAL THERAPY EVALUATION PLAN OF CARE: Assessment: Rachid Bender presents with diagnosis of LUE thumb EPL repair Zone T3-4 that interferes with lifting, physical activities, recreational activities . He presents with impairments in ADL's, overall function, range of motion, and strength. Patient did not complete the PROMIS? (Patient Reported Outcome Measures Information System). Prognosis for therapy is Good due to: current objective clinical presentation, acuteness of condition . He will benefit from skilled therapy services to meet the goals established for this plan of care as noted below. Rehab Precautions: Other (See Comment) (EPL repair protocol) Precaution/Activity Restriction Comments: Orthotic at all times otehr then coming out for EPL protocol exercise Current Surgical Procedure: EXPLORATION WOUND EXTREMITY PENETRATING, left thumb (Left) REPAIR EXTENSOR TENDON FINGER W/O FREE GRAFT, LEFT THUMB (Left) Current Surgical Procedure Date: 10/14/23 Mechanism of Injury: Injury (non sports related) Goals for Episode of Care created on 10/18/23 through 01/16/24 Patient will report a good understanding of diagnosis and OT recommendations for progression of program. Patient will demonstrate independence with ongoing home recommendations/exercise program throughout therapy plan of care. Patient will improve function in Left hand in order to be able to perform basic self-care tasks, prior functional tasks, and work tasks. Patient will report a decrease in pain in Left hand to 1/10 with basic self-care tasks, prior functional tasks, and work tasks. Patient will increase AROM of Left hand to WFL (80% of RUE) in order to be able to improve function for basic self-care tasks, prior functional tasks, and work tasks. Patient will independently demonstrate correct application of CUSTOM orthosis and verbalize understanding of proper wear/care. Patient will increase Left biological science aide strength to 75% of RUE, so that patient will be able to improve function for basic self-care tasks, prior functional tasks, and work tasks. Patient will increase Left pinch to 75% of RUE so that patient will be able to improve function for basic self-care tasks, prior functional tasks, and work tasks. Patient Goals: Increased functional hand use Planned Interventions, Frequency, and Duration: Current Frequency: 1x/week Duration: 12 weeks Total Number of Visits Planned: 12 Planned Treatment Interventions: Custom orthosis fabrication, Prefabricated orthosis fitting, Therapeutic exercise (47435), Therapeutic activities (70857), Manual therapy (36428), Neuromuscular re-education (82036), Self-penitentiary management (20283), Orthotics management and training (71274,46149), Paraffin Bath (71544), Fluidotherapy (31466) PLAN FOR NEXT VISIT:Progress per EPL repair protocol Patient demonstrates good understanding of plan of care and treatment. The above goals and plan of care were discussed and agreed upon by patient/family. SUBJECTIVE: Patient seen 4 days s/p LUE thumb EPL repair in zone T3-4. Fabricated FA based thubm spica with wrist in 30 degrees extension and thumb in radial abduction as to offloaf the repair. Per MD protocol taught gentle early active motion of MCP flexion to 20 degrees with passive extension. Advised to complete this exercise for 8-10 minutes every 90-120 minutes daily to prevent scar tissue adhesion while also protecting the repair. Patient able to demosntrate exercise back without difficulty, verbalzied good understanding of precautions. 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 T-scores: mean of general population = 50. 5 points is clinically meaningfully difference Percentiles provide an indication of how the patient's score ranks in relation to the general population. Higher percentile rankings paolo (more content not included)... [facility] 10-18-2023 History of Presen t illness Narrative Episode Visit Count: 1 Therapist That Will Accept/Oversee The Plan Of Care: GLORIA Elizabeth/Lizet, CHT Start of Care Date: 10/18/23 Plan of Care Certification Date: 10/18/23 Patient Identified by Name and Date of : Yes [facility] OCCUPATIONAL THERAPY EVALUATION PLAN OF CARE: Assessment: Rachid Bender presents with diagnosis of LUE thumb EPL repair Zone T3-4 that interferes with lifting, physical activities, recreational activities . He presents with impairments in ADL's, overall function, range of motion, and strength. Patient did not complete the PROMIS (Patient Reported Outcome Measures Information System). Prognosis for therapy is Good due to: current objective clinical presentation, acuteness of condition . He will benefit from skilled therapy services to meet the goals established for this plan of care as noted below. Rehab Precautions: Other (See Comment) (EPL repair protocol) Precaution/Activity Restriction Comments: Orthotic at all times otehr then coming out for EPL protocol exercise Current Surgical Procedure: EXPLORATION WOUND EXTREMITY PENETRATING, left thumb (Left) REPAIR EXTENSOR TENDON FINGER W/O FREE GRAFT, LEFT THUMB (Left) Current Surgical Procedure Date: 10/14/23 Mechanism of Injury: Injury (non sports related) Goals for Episode of Care created on 10/18/23 through 01/16/24 Patient will report a good understanding of diagnosis and OT recommendations for progression of program. Patient will demonstrate independence with ongoing home recommendations/exercise program throughout therapy plan of care. Patient will improve function in Left hand in order to be able to perform basic self-care tasks, prior functional tasks, and work tasks. Patient will report a decrease in pain in Left hand to 1/10 with basic self-care tasks, prior functional tasks, and work tasks. Patient will increase AROM of Left hand to WFL (80% of RUE) in order to be able to improve function for basic self-care tasks, prior functional tasks, and work tasks. Patient will independently demonstrate correct application of CUSTOM orthosis and verbalize understanding of proper wear/care. Patient will increase Left biological science aide strength to 75% of RUE, so that patient will be able to improve function for basic self-care tasks, prior functional tasks, and work tasks. Patient will increase Left pinch to 75% of RUE so that patient will be able to improve function for basic self-care tasks, prior functional tasks, and work tasks. Patient Goals: Increased functional hand use Planned Interventions, Frequency, and Duration: Current Frequency: 1x/week Duration: 12 weeks Total Number of Visits Planned: 12 Planned Treatment Interventions: Custom orthosis fabrication, Prefabricated orthosis fitting, Therapeutic exercise (02393), Therapeutic activities (43019), Manual therapy (28382), Neuromuscular re-education (51662), Self-penitentiary management (72094), Orthotics management and training (05169,72013), Paraffin Bath (31498), Fluidotherapy (40344) PLAN FOR NEXT VISIT:Progress per EPL repair protocol Patient demonstrates good understanding of plan of care and treatment. The above goals and plan of care were discussed and agreed upon by patient/family. SUBJECTIVE: Patient seen 4 days s/p LUE thumb EPL repair in zone T3-4. Fabricated FA based thubm spica with wrist in 30 degrees extension and thumb in radial abduction as to offloaf the repair. Per MD protocol taught gentle early active motion of MCP flexion to 20 degrees with passive extension. Advised to complete this exercise for 8-10 minutes every 90-120 minutes daily to prevent scar tissue adhesion while also protecting the repair. Patient able to demosntrate exercise back without difficulty, verbalzied good understanding of precautions. 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 T-scores: mean of general population = 50. 5 points is clinically meaningfully difference Percentiles provide an indication of how the patient's score ranks in relation to the general population. Higher percentile rankings indicate better function/quality of life. 50th percentile is the average of the general population and indicates half of respondents had a worse score. OBJECTIVE MEASURES WITH LEVEL OF FUNCTION: Hand Skin / Wound: Wound Description Wound Description: Progressing as expected Right Hand AROM: WFL Left Hand AROM: WFL Thumb AROM: Left Limitation (Testing not indicated at this time) Strength: Time Study Technician Position 2, Pinch Meter Sensation: Denies tingling or numbness UE AROM Right Hand AROM: WFL Left Hand AROM: WFL Thumb AROM: Left Limitation (Testing not indicated at this time) Hand AROM L Index Finger Distal Palmar Crease (cm): 0 cm L Middle Finger Distal Palmar Crease (cm): 0 cm L Ring Finger Distal Palmar Crease (cm): 0 cm L Little Finger Distal Palmar Crease (cm): 0 cm Education: Education Learning Preferences: Demonstration, Explanation, Performance, Printed Materials Barriers: None Learning/educational needs: Safety, Home exercise program, Plan of Care, Brace Fit Education Provided: Yes, see treatment interventions for education provided Education Provided To: Patient Education Mode/Type: Demonstration, Explanation/Discussion, Literature/Printed Materials, Performance Response to Education/Teach Back: States/Identifies, Return Demonstration TREATMENT: OT Treatment Interventions : Therapeutic Exercise, Manual Therapy, Therapeutic Activity, Neuromuscular Re-Education, Self-Retirement Management, Custom Orthosis/Splint Fabrication, Orthotic/Prosthetic Adjust/Train (Subsequent) Evaluation Therapeutic Exercise: 1: EAM EPL repair protocol - MCP active flexion to 20 degrees, passive extenison to neutral to be completed for 8-10 minutes every 90-120 minutes daily Skilled Intervention: Patient was educated in proper exercise technique and purpose for exercises. Skilled judgment was used in selection of appropriate interventions. Provided written instruction for home exercise program to facilitate proper performance and compliance. Patient education as noted. Custom orthosis: L 3808 WHFO w/out joints (long opponens, thumb spica, intrinsic gutter, resting, anti-spasticity, EXOS, dorsal block) Custom orthosis to provide immobilization, protection and support of LUE thumb to promote healing. Patient was instructed in care of orthosis and wearing schedule green material value added assessor except when exercising / bathing. . Skilled Intervention: Clinical knowledge and skills required for custom orthotic fabrication and wearing schedule Required supervision for donning/doffing orthosis Billing * Evaluation Low Complexity: 1 Unit Therapeutic Exercise Treatment Minutes: 15 * L 3808 WHFO w/out joints (long opponens, thumb spica, intrinsic gutter, resting, anti-spasticity, EXOS, dorsal block) Quantity: 1 Fabrication time for custom splint (minutes): 15 Skilled Treatment Time Minutes (timed and untimed codes): 45 Total Session Time (minutes): 45 Session Start Time : 1431 Session Stop Time : 1516 CAMILLA Elizabeth documented in this encounter [facility] 10-14-2023 Note HNO ID: [id number] Author: MIKKI TRACY RN Service: ? Author Type: Registered Nurse Type: Nursing Progress Note Filed: 10/14/2023 16:36 Note Text: Pt. Instructed to monitor BP at home and notify his primary if remains high per Dr. Orozco [facility] 10-14-2023 Note HNO ID: [id number] Author: MIKKI TRACY RN Service: ? Author Type: Registered Nurse Type: Nursing Progress Note Filed: 10/14/2023 16:35 Note Text[facility] HNO ID: [id number] Author: MIKKI TRACY RN Service: ? Author Type: Registered Nurse Type: Nursing Progress Note Filed: 10/14/2023 16:35 Note Text: Rachid Bender [id number] Patient dressed self Mikki Tracy RN [facility] 10-12-2023 Note HNO ID: [id number] Author: ANKUSH OROZCO JR, MD Service: ? Author Type: Physician Type: Progress Notes Filed: 10/13/2023 07:30 Note Text: 10/12/2023 Name:Rachid Bender Date of :1975 History of Chief Complaint: Rachid is seeing me as a new patient today. He complains of left thumb laceration. He injured his thumb on 10/10/2023, while using a fillet knife. He is unable to extend the thumb. He is wearing a thumb lacer brace. He denies any numbness or tingling and otherwise has no other complaints. . PAST MEDICAL HISTORY Diagnosis Date Lung field nodule - 6mm - Stable 10/02/2004 4-6mm nodule on CT chest in 02-01, 09-02, 10-03. Lung field nodule - 6mm - Stable x4y 10/02/2004 4-6mm nodule on CT chest in 02-01, 09-02, 10-03, 2007. PMH - PAST MEDICAL HISTORY OF 1998 Fractured L leg tib/fib PAST SURGICAL HISTORY Procedure Laterality Date PAST SURGICAL HISTORY OF none Social History Tobacco Use Smoking status: Light Smoker Packs/day: 0.50 Years: 15.00 Additional pack years: 0.00 Total pack years: 7.50 Types: Cigarettes Smokeless tobacco: Never Tobacco comments: cigs Substance Use Topics Alcohol use: Yes Comment: rare Drug use: No ALLERGIES Allergen Reactions Bupropion Intolerance Muscle cramps, tongue biting Metformin Diarrhea at doses over 1500mg /d Current Outpatient Medications Medication Sig Dispense Refill CPAP 1 Units by MISCELLANEOUS route daily at bedtime. Travel CPAP machine with filters, mask, hose, nose pillow, etc. CPAP 13 cmH20 with humidification. 1 Device 0 COMPOUNDED PRESCRIPTION CPAP machine with filters, mask, hose, nose pillow, etc. CPAP 13 cmH20 with humidification. 1 Each 0 traMADol (ULTRAM) 50 mg tablet TAKE 1-2 TABLETS BY MOUTH EVERY 6 HOURS NEEDED 60 tablet 2 COMPOUNDED PRESCRIPTION CPAP 13 cmH20 with humidification. 1 Each 0 COMPOUNDED PRESCRIPTION Glucometer, test strips, lancets + accessories. Up to once a day testing. Diabetes 2, 250.00, 3mo supply 1 Kit 4 No current facility-administered medications for this visit. VITALS There were no vitals taken for this visit. PHYSICAL EXAMINATION: General: he is a well developed, well nourished male Psyche: he is alert and oriented and cooperative to our examination Skin: Skin condition is healthy without rashes or erythema. Cadiovascular: Palpable radial pulse with brisk cap refill distally Neck: Supple with no JVD Lymph: There is no palpable epitrochlear Pulmonary: he has non labored breathing. There is no evidence of cyanosis. There is no clubbing of his fingernails. he has no pursed lips. Neuro: he is alert and oriented x3. There are no focal neurologic deficits. See sensation exam below. Head: Normocephalic and atraumatic Musculoskeletal: There is no swelling or ecchymosis. There is a small laceration on the dorsal aspect of the thumb. There are no Heberden's or Venecia's nodes. There is no boutonniere or swan-neck deformity of the fingers. There is no ulnar drift of the fingers. There is no intrinsic muscular atrophy. There is a negative shoulder sign over the thumb CMC joint. There is no dorsal subluxation of the ulnar head. He has no active extension at the IP joint of the thumb. He fires the FPL tendon. Sensation is intact to light touch. Imaging: No new imaging Assessment: 1. Laceration of left thumb without foreign body without damage to nail, initial encounter 2. Laceration of extensor tendon of left thumb at hand level Plan: I do recommend exploration penetrating wound left thumb with repair of extensor tendon. I have explained the risks, benefits and potential complications of the Surgery. Patient understands these risks and agrees to proceed. We will schedule this at our earliest mutual convenience. Call the office with any questions or concerns. All of the patients questions were answered to his satisfaction. I reviewed diagnosis with patient verbally. We discussed his treatment options in depth and established a course of treatment suited to him. Scribe Attestation: By signing my name below, I, Johana Camarillo MA, attest that this documentation has been prepared under the direction and in the presence of Ankush Orozco Jr., MD. Electronically Signed: Johana Camarillo MA, Scribe. October 12, 2023 9:43 AM. Clinician Attestation Statement: The information in this document, created by the medical support assistant for me, accurately reflects the services I personally performed and the decisions made by me. I have reviewed and approved this document for accuracy. Ankush Orozco MD Please note: This note has been produced using speech recognition software and may contain errors related to that system including grammar, punctuation, spelling, gender and words and phrases that may be inappropriate. [facility] 10-12-2023 History of Presen t illness Narrative 10/12/2023 Name:Rachid Bender Date of :1975 History of Chief Complaint: Rachid is seeing me as a new patient today. He complains of left thumb laceration. He injured his thumb on 10/10/2023, while using a fillet knife. He is unable to extend the thumb. He is wearing a thumb lacer brace. He denies any numbness or tingling and otherwise has no other complaints. . PAST MEDICAL HISTORY Diagnosis Date Lung field nodule - 6mm - Stable 10/02/2004 4-6mm nodule on CT chest in 02-01, 09-02, 10-03. Lung field nodule - 6mm - Stable x4y 10/02/2004 4-6mm nodule on CT chest in 02-01, 09-02, 10-03, 2007. PMH - PAST MEDICAL HISTORY OF 1998 Fractured L leg tib/fib PAST SURGICAL HISTORY Procedure Laterality Date PAST SURGICAL HISTORY OF none Social History Tobacco Use Smoking status: Light Smoker Packs/day: 0.50 Years: 15.00 Additional pack years: 0.00 Total pack years: 7.50 Types: Cigarettes Smokeless tobacco: Never Tobacco comments: cigs Substance Use Topics Alcohol use: Yes Comment: rare Drug use: No ALLERGIES Allergen Reactions Bupropion Intolerance Muscle cramps, tongue biting Metformin Diarrhea at doses over 1500mg /d Current Outpatient Medications Medication Sig Dispense Refill CPAP 1 Units by MISCELLANEOUS route daily at bedtime. Travel CPAP machine with filters, mask, hose, nose pillow, etc. CPAP 13 cmH20 with humidification. 1 Device 0 COMPOUNDED PRESCRIPTION CPAP machine with filters, mask, hose, nose pillow, etc. CPAP 13 cmH20 with humidification. 1 Each 0 traMADol (ULTRAM) 50 mg tablet TAKE 1-2 TABLETS BY MOUTH EVERY 6 HOURS NEEDED 60 tablet 2 COMPOUNDED PRESCRIPTION CPAP 13 cmH20 with humidification. 1 Each 0 COMPOUNDED PRESCRIPTION Glucometer, test strips, lancets + accessories. Up to once a day testing. Diabetes 2, 250.00, 3mo supply 1 Kit 4 No current facility-administered medications for this visit. VITALS There were no vitals taken for this visit. PHYSICAL EXAMINATION: General: he is a well developed, well nourished male Psyche: he is alert and oriented and cooperative to our examination Skin: Skin condition is healthy without rashes or erythema. Cadiovascular: Palpable radial pulse with brisk cap refill distally Neck: Supple with no JVD Lymph: There is no palpable epitrochlear Pulmonary: he has non labored breathing. There is no evidence of cyanosis. There is no clubbing of his fingernails. he has no pursed lips. Neuro: he is alert and oriented x3. There are no focal neurologic deficits. See sensation exam below. Head: Normocephalic and atraumatic Musculoskeletal: There is no swelling or ecchymosis. There is a small laceration on the dorsal aspect of the thumb. There are no Heberden's or Venecia's nodes. There is no boutonniere or swan-neck deformity of the fingers. There is no ulnar drift of the fingers. There is no intrinsic muscular atrophy. There is a negative shoulder sign over the thumb CMC joint. There is no dorsal subluxation of the ulnar head. He has no active extension at the IP joint of the thumb. He fires the FPL tendon. Sensation is intact to light touch. Imaging: No new imaging Assessment: 1. Laceration of left thumb without foreign body without damage to nail, initial encounter 2. Laceration of extensor tendon of left thumb at hand level Plan: I do recommend exploration penetrating wound left thumb with repair of extensor tendon. I have explained the risks, benefits and potential complications of the Surgery. Patient understands these risks and agrees to proceed. We will schedule this at our earliest mutual convenience. Call the office with any questions or concerns. All of the patients questions were answered to his satisfaction. I reviewed diagnosis with patient verbally. We discussed his treatment options in depth and established a course of treatment suited to him. Scribe Attestation: By signing my name below, I, Johana Camarillo MA, attest that this documentation has been prepared under the direction and in the presence of Ankush Orozco Jr., MD. Electronically Signed: Johana Camarillo MA, Scribe. October 12, 2023 9:43 AM. Clinician Attestation Statement: The information in this document, created by the medical support assistant for me, accurately reflects the services I personally performed and the decisions made by me. I have reviewed and approved this document for accuracy. Ankush Orozco MD Please note: This note has been produced using speech recognition software and may contain errors related to that system including grammar, punctuation, spelling, gender and words and phrases that may be inappropriate. documented in this encounter [facility] 10-11-2023 Telephone encounter Note ----- Message from Rachell Flores sent at 10/11/2023 8:04 AM EDT ----- Regarding: Orthopedics / Hand: Laceration (Cut) / Recent ED Visit Orthopedics / Hand: Laceration (Cut) / Recent ED Visit Patient has been identified by name and Date of (Y/N): Y Patient: Rachid Bender Date of : 1975 Previous Provider Seen: NA Body Part(s) Identified: Left Thumb Diagnosis/Reason For Visit: Laceration of thumb tendon Reason for the call/escalation:[place] ER F/U, ER doctor spoke to Dr. Orozco. Pt needs immediate surgery to repair the tendon. very persistent with getting a call back immediately, explained agent can not speed up process and will be following current protocol of sending a staff message. If reason for call/escalation is discharge from ED/ER or Hospital, which facility was the patient seen at: na Was an appointment scheduled (Y/N): n Person calling if other than patient: Margaret mendiola Return call to if other than patient: Margaret mendiola Best contact number: [phone] Thank you, Rachell Flores October 11, 2023 8:04 AM [facility] 05-13-2024 Miscellaneous Notes ----- Message from Rachell Flores sent at 10/11/2023 8:04 AM EDT ----- Regarding: Orthopedics / Hand: Laceration (Cut) / Recent ED Visit Orthopedics / Hand: Laceration (Cut) / Recent ED Visit Patient has been identified by name and Date of (Y/N): Y Patient: Rachid Bender Date of : 1975 Previous Provider Seen: NA Body Part(s) Identified: Left Thumb Diagnosis/Reason For Visit: Laceration of thumb tendon Reason for the call/escalation:[place] ER F/U, ER doctor spoke to Dr. Orozco. Pt needs immediate surgery to repair the tendon. very persistent with getting a call back immediately, explained agent can not speed up process and will be following current protocol of sending a staff message. If reason for call/escalation is discharge from ED/ER or Hospital, which facility was the patient seen at: na Was an appointment scheduled (Y/N): n Person calling if other than patient: Margaret mendiola Return call to if other than patient: Margaret mendiola Best contact number: [phone] Thank you, Rachell Flores October 11, 2023 8:04 AM documented in this encounter [facility] Evaluation note Diagnosis Laceration of left thumb with tendon involvement, initial encounter- [facility] Laceration of left thumb without foreign body without damage to nail, initial encounter- Primary Laceration of extensor tendon of left thumb at hand level Laceration of left thumb with tendon involvement, initial encounter [facility] Pain of left thumb- Primary Pain in limb [facility] Diagnosis Laceration of left thumb without foreign body without damage to nail, subsequent encounter- Primary Laceration of extensor tendon of left thumb at hand level [facility] Pain of left thumb- Primary Pain in limb [facility] Pain of left thumb- Primary Pain in limb [facility] Laceration of left thumb without foreign body without damage to nail, subsequent encounter- Primary [facility] noteNo assessment information availableWKet[facility] Work Phone: Reason for referral (narrative)No reason for referral information availableWKettering Health [facility] Work Phone: Summary Purpose Family History No Family History Records FoundNo Family History Records FoundNo Family History Records FoundNo Family History Records Found Advance Directives No Advanced Directives Records Found Advance Directive Response Recorded Date/ Time Do you have a Healthcare Power of Clinic Office Manager? No March 01, 2025 7:03pm Chief Complaint and Reason for Visit Chief Complaint Admit Date HTN March 01, 2025 4: 49pm Additional Source Comments (unrecognized sect ion and content) No Status Records FoundNo Status Records FoundNo Status Records FoundNo Status Records Found INFORMATION SOURCE (unrecogn ized section and content) DATE CREATED AUTHOR 08/12/2020 [facility] DATE CREATED AUTHOR AUTHOR'S ORGANIZ ATION 10/03/2020 [facility] DATE CREATED AUTHOR AUTHOR'S ORGANIZ ATION 01/16/2024 [facility] DATE CREATED AUTHOR AUTHOR'S ORGANIZ ATION 03/13/2025 [facility] Source Comments (unrecognize d section and content) In the event this informatio n is protected by the Federal Confidentiality of Alcohol and Drug Abuse Patient Records regulations: The Federal rules restrict any use of the information to criminally investigate or prosecute any alcohol or drug abuse patient.[facility] the event this information is protected by the Federal Confidentiality of Alcohol and Drug Abuse Patient Records regulations: The Federal rules restrict any use of the information to criminally investigate or prosecute any alcohol or drug abuse patient.[facility] Center[facility] the event this information is protected by the Federal Confidentiality of Alcohol and Drug Abuse Patient Records regulations: The Federal rules restrict any use of the information to criminally investigate or prosecute any alcohol or drug abuse patient.[facility] Center[facility] the event this information is protected by the Federal Confidentiality of Alcohol and Drug Abuse Patient Records regulations: The Federal rules restrict any use of the information to criminally investigate or prosecute any alcohol or drug abuse patient.[facility] Center[facility] the event this information is protected by the Federal Confidentiality of Alcohol and Drug Abuse Patient Records regulations: The Federal rules restrict any use of the information to criminally investigate or prosecute any alcohol or drug abuse patient.[facility] Center[facility] the event this information is protected by the Federal Confidentiality of Alcohol and Drug Abuse Patient Records regulations: The Federal rules restrict any use of the information to criminally investigate or prosecute any alcohol or drug abuse patient.[facility] Center[facility] the event this information is protected by the Federal Confidentiality of Alcohol and Drug Abuse Patient Records regulations: The Federal rules restrict any use of the information to criminally investigate or prosecute any alcohol or drug abuse patient.[facility] Center[facility] the event this information is protected by the Federal Confidentiality of Alcohol and Drug Abuse Patient Records regulations: The Federal rules restrict any use of the information to criminally investigate or prosecute any alcohol or drug abuse patient.[facility] Center[facility] the event this information is protected by the Federal Confidentiality of Alcohol and Drug Abuse Patient Records regulations: The Federal rules restrict any use of the information to criminally investigate or prosecute any alcohol or drug abuse patient.[facility] Reason for Visit (unrecogniz ed section and content) Reason Comments Occupational Therapy Specialty Diagnoses / Procedures Referred By Contac t Referred To Contact Occupational Therapy / OCCUPATIONAL THERAPY Diagnoses post op hand Procedures NEW RS OT HAND Ankush Orozco Jr., MD [address] [address] Brad Delatorre, OT/L Referral ID Status Reason Start Date Expiration Date V isits Requested Visits Authorized [id number] Authorized 10/18/2023 05/30/2024 40 40 Reason Comments ER F/U [place] 10/09 Reason Comments New Reason Comments OT EVAL Referral ID Status Reason Start Date Expiration Date V isits Requested Visits Authorized [id number] Pending Review 10/18/2023 05/30/2024 1 1 Reason Comments Post Op Reason Comments Established Patient Post Op Care Teams (unrecognized sec tion and content) Track Welder Relationship Specialty [place] [address] [place] [address] PCP - General Family Medicine 06/20/18 Track Welder Relationship Specialty Start [place] [address] [place] [address] PCP - General Family Medicine 06/20/18 Track Welder Relationship Specialty Start [place] [address] [place] [address] PCP - General Family Medicine 06/20/18 Track Welder Relationship Specialty Start [place] [address] [place] [address] PCP - General Family Medicine 06/20/18 Track Welder Relationship Specialty Start [place] [address] [place] [address] PCP - General Family Medicine 06/20/18 Track Welder Relationship Specialty Start [place] [address] [place] [address] PCP - General Family Medicine 06/20/18 Team Status: Active Member Role/Relationship Status Dates Dr. Derick Montes MD Primary care physician Active Team Status: Inactive Member Role/Relationship Status Dates Dr. Derick Montes MD Primary care physician Active Start: March 01, 2025 End: March 01, 2025 Dr. Eddy Escobar DO Emergency Departm ent Physician Active Start: March 01, 2025 End: March 01, 2025 Goals (unrecognized section and content) Goals may be documented in a n alternate section FOR RECORDS PERTAINING TO PATIENTS WHO ARE OR HAVE BEEN ENROLLED IN A CHEMICAL DEPENDENCY/SUBSTANCEABUSE PROGRAM, SOME INFORMATION MAY BE OMITTED. This clinical summary was aggregated from multiple sources. Caution should be exercised in using it in the provision of clinical care. This summary normalizes information from multiple sources, and as a consequence, information in this document may materially change the coding, format and clinical context of patient data. In addition, data may be omitted in some cases. CLINICAL DECISIONS SHOULD BE BASED ON THE PRIMARY CLINICAL RECORDS. [employer] provides no warranty or guarantee of the accuracy or completeness of information in this document.
--- OUTSIDE RECORDS SUMMARY | 2025-03-15 17:02 | XMS RPT_ITS | CCD ---
Author Organization [facility] Care Team Providers Care Stone Planer Name Role Phone Bassem KEENE Emiliano Snow Primary Care Provider ANKUSH OROZCO JR Referring Unav ailable BASSEM, [...] (1 source) buPROPion Drug Allergy 10-04-2006 Intolerance [facility] Work Phone: metFORMIN (1 source) metFORMIN Drug Allergy 12-20-2017 Diarrhea [facility] (9 sources) buPROPion; Translations: [BUPROPION] Drug Allergy 10-04-2006 Intolerance [facility] Work Phone: (9 sources) metFORMIN; Translations: [METFORMIN] Drug Allergy 12-20-2017 Diarrhea [facility] Medications Current Medications Medication Drug Class(es) Dates [...] )on 03-09-2025 BUN/CRE 16.8 RATIO Normal 03-19 [facility] Comment on above: Order Comment: Order Date: 03/06/25Order Info: 0667- - BMP Performed By: #### L 500.2500 ####[facility] [address] [place] [place], [address] Calcium [Mass/Vol] 9.6 mg/dL Normal 7.6-11.0 [facility] Comment on above: Order Comment: Order Date: 03/06/25Order Info: 0667- - BMP Performed By: #### L 500.2500 ####[facility] [address] [place], [address] Chloride [Moles/Vol] 97 mmol/L Low 98-108 [facility] Comment on above: Order Comment: Order Date: 03/06/25Order Info: 0667- - BMP Performed By: #### L 500.2500 ####[facility] [address] [place], [address] CO2 [Moles/Vol] 26.3 mmol/L Normal 21.0-32.0 [facility] Comment on above: Order Comment: Order Date: 03/06/25Order Info: 0667- - BMP Performed By: #### L 500.2500 ####[facility] [address] [place], [address] Creatinine [Mass/Vol] 1.44 mg/dL High 0.70-1.20 [facility] Comment on above: Order Comment: Order Date: 03/06/25Order Info: 0667-1 - BMP Performed By: #### L 500.2500 ####[facility] [address] [place], [address] GAP 13 Normal 5-15 [facility] Comment on above: Order Comment: Order Date: 03/06/25Order Info: 666-05 - BMP Performed By: #### L 500.2500 ####[facility] [address] [place], [address] GFR/1.73 sq M.predicted among non-blacks MDRD (S/P/Bld) [Vol rate/Area] 59 mL/min/{1.73_m2} Low >60 [facility] Comment on above: Order Comment: Order Date: 03/06/25Order Info: 666-05 - BMP Result Comment: mL/m in/1.73m2 CKD-EPI Creatinine Equation (2020) Performed By: #### L 500.2500 ####[facility] [address] [place], [address] Glucose [Mass/Vol] 178 mg/dL High 70-99 [facility] Comment on above: Order Comment: Order Date: 03/06/25Order Info: 666-05 - BMP Performed By: #### L 500.2500 ####[facility] [address] [place], [address] Potassium [Moles/Vol] 4.0 mmol/L Normal 3.3-5.1 [facility] Comment on above: Order Comment: Order Date: 03/06/25Order Info: 666-05 - BMP Performed By: #### L 500.2500 ####[facility] [address] [place], [address] Sodium [Moles/Vol] 136 mmol/L Normal 133-145 [facility] Comment on above: Order Comment: Order Date: 03/06/25Order Info: 666-05 - BMP Performed By: #### L 500.2500 ####[facility] [address] [place], [place], [address] Urea nitrogen [Mass/Vol] 24 mg/dL High 4-19 [facility] Comment on above: Order Comment: Order Date: 03/06/25Order Info: 0667-1 - BMP Performed By: #### L 500.2500 ####[facility] [address] [place], [place], [address] Thyroid Antibodieson 025 TG AB < 1.0 Normal 0.0-0.9 [facility] Comment on above: Result Comment: Thyr oglobulin Antibody measured by [employer] It should be noted that the presence of thyroglobulin antibodies may not be pathogenic nor diagnostic, especially at very low levels. The assay preparation supervisor canning has found that four percent of individuals without evidence of thyroid disease or autoimmunity will have positive TgAb levels up to 4 IU/mL. Performed at: [address] [id number] [employer]: Kayden Richardson PhD, Phone: [phone] Performed By: #### L 400.0001, N5982.0806 ####[facility] [address] [place], [place], [id number] THYR PEROX AB 9 IU/mL Normal 0-34 [facility] Comment on above: Performed By: #### L 400.0001, L3326.8448 ####[facility] [address] [place], [place], [address] Comprehensive Metabolic Prof ilon 03-02-2025 Albumin [Mass/Vol] 4.4 g/dL Normal 3.5-5.0 [facility] Comment on above: Order Comment: Order Date: 03/02/25Order Info: [id number] - CMPOrder Info: [id number] - LIPIDOrder Info: [id number] - MGOrder Info: [id number] - TSHOrder Info: 3024-7 - T4F Performed By: #### L 501.9520, L501.5200, L500.4050, L501.9985, L500.4100 ####[facility] [address] [place], [address] Albumin/Globulin [Mass ratio] 1.4 {ratio} Normal 0.9-2.4 [facility] Comment on above: Order Comment: Order Date: 03/02/25Order Info: 0786-1 - CMPOrder Info: [id number] - LIPIDOrder Info: [id number] - MGOrder Info: [id number] - TSHOrder Info: 3024-7 - T4F Performed By: #### L 501.9520, L501.5200, L500.4050, L501.9985, L500.4100 ####[facility] [address] [place], [address] ALK PHOS 62 U/L Normal 40-129 [facility] Comment on above: Order Comment: Order Date: 03/02/25Order Info: 86-1 - CMPOrder Info: [id number] - LIPIDOrder Info: [id number] - MGOrder Info: [id number] - TSHOrder Info: 3024-7 - T4F Performed By: #### L 501.9520, L501.5200, L500.4050, L501.9985, L500.4100 ####[facility] [address] [place], [address] ALT [Catalytic activity/Vol] 30 U/L Normal <=46 [facility] Comment on above: Order Comment: Order Date: 03/02/25Order Info: 0786-1 - CMPOrder Info: [id number] - LIPIDOrder Info: [id number] - MGOrder Info: [id number] - TSHOrder Info: 3024-7 - T4F Performed By: #### L 501.9520, L501.5200, L500.4050, L501.9985, L500.4100 ####[facility] [address] [place], [address] AST [Catalytic activity/Vol] 21 U/L Normal <=37 [facility] Comment on above: Order Comment: Order Date: 03/02/25Order Info: 0786-1 - CMPOrder Info: [id number] - LIPIDOrder Info: [id number] - MGOrder Info: [id number] - TSHOrder Info: 3024-7 - T4F Performed By: #### L 501.9520, L501.5200, L500.4050, L501.9985, L500.4100 ####[facility] [address] [place], [address] Bilirubin [Mass/Vol] 0.60 mg/dL Normal 0.00-1.30 [facility] Comment on above: Order Comment: Order Date: 03/02/25Order Info: 86-1 - CMPOrder Info: [id number] - LIPIDOrder Info: [id number] - MGOrder Info: 6-3 - TSHOrder Info: 3024-7 - T4F Performed By: #### L 501.9520, L501.5200, L500.4050, L501.9985, L500.4100 ####[facility] [address] [place], [address] BUN/CRE 14.8 RATIO Normal 10-20 [facility] Comment on above: Order Comment: Order Date: 03/02/25Order Info: 86-1 - CMPOrder Info: [id number] - LIPIDOrder Info: [id number] - MGOrder Info: [id number] - TSHOrder Info: 3024-7 - T4F Performed By: #### L 501.9520, L501.5200, L500.4050, L501.9985, L500.4100 ####[facility] [address] [place], [address] Calcium [Mass/Vol] 9.4 mg/dL Normal 7.6-11.0 [facility] Comment on above: Order Comment: Order Date: 03/02/25Order Info: 86-1 - CMPOrder Info: [id number] - LIPIDOrder Info: [id number] - MGOrder Info: [id number] - TSHOrder Info: 3024-7 - T4F Performed By: #### L 501.9520, L501.5200, L500.4050, L501.9985, L500.4100 ####[facility] [address] [place], [address] Chloride [Moles/Vol] 99 mmol/L Normal 98-108 [facility] Comment on above: Order Comment: Order Date: 03/02/25Order Info: 0786-1 - CMPOrder Info: [id number] - LIPIDOrder Info: [id number] - MGOrder Info: [id number] - TSHOrder Info: 3024-7 - T4F Performed By: #### L 501.9520, L501.5200, L500.4050, L501.9985, L500.4100 ####[facility] [address] [place], [address] CO2 [Moles/Vol] 24.9 mmol/L Normal 21.0-32.0 [facility] Comment on above: Order Comment: Order Date: 03/02/25Order Info: 0786-1 - CMPOrder Info: [id number] - LIPIDOrder Info: [id number] - MGOrder Info: [id number] - TSHOrder Info: 3024-7 - T4F Performed By: #### L 501.9520, L501.5200, L500.4050, L501.9985, L500.4100 ####[facility] [address] [place], [address] Creatinine [Mass/Vol] 0.95 mg/dL Normal 0.70-1.20 [facility] Comment on above: Order Comment: Order Date: 03/02/25Order Info: 0786-1 - CMPOrder Info: [id number] - LIPIDOrder Info: [id number] - MGOrder Info: [id number] - TSHOrder Info: 3024-7 - T4F Performed By: #### L 501.9520, L501.5200, L500.4050, L501.9985, L500.4100 ####[facility] [address] [place], [address] GAP 13 Normal 5-15 [facility] Comment on above: Order Comment: Order Date: 03/02/25Order Info: 0786-1 - CMPOrder Info: [id number] - LIPIDOrder Info: [id number] - MGOrder Info: [id number] - TSHOrder Info: 302-7 - T4F Performed By: #### L 501.9520, L501.5200, L500.4050, L501.9985, L500.4100 ####[facility] [address] [place], [address] GFR/1.73 sq M.predicted among non-blacks MDRD (S/P/Bld) [Vol rate/Area] 97 mL/min/{1.73_m2} Normal >60 [facility] Comment on above: Order Comment: Order Date: 03/02/25Order Info: 785-1 - CMPOrder Info: [id number] - LIPIDOrder Info: [id number] - MGOrder Info: 3015-3 - TSHOrder Info: 302-7 - T4F Result Comment: mL/m in/1.73m2 CKD-EPI Creatinine Equation (2020) Performed By: #### L 501.9520, L501.5200, L500.4050, L501.9985, L500.4100 ####[facility] [address] [place], [address] Globulin (S) [Mass/Vol] 3.2 g/dL Normal 2.2-4.2 [facility] Comment on above: Order Comment: Order Date: 03/02/25Order Info: 86-1 - CMPOrder Info: [id number] - LIPIDOrder Info: [id number] - MGOrder Info: [id number] - TSHOrder Info: 3024-7 - T4F Performed By: #### L 501.9520, L501.5200, L500.4050, L501.9985, L500.4100 ####[facility] [address] [place], [address] Glucose [Mass/Vol] 210 mg/dL High 70-99 [facility] Comment on above: Order Comment: Order Date: 03/02/25Order Info: 0786-1 - CMPOrder Info: [id number] - LIPIDOrder Info: [id number] - MGOrder Info: [id number] - TSHOrder Info: 3024-7 - T4F Performed By: #### L 501.9520, L501.5200, L500.4050, L501.9985, L500.4100 ####[facility] [address] [place], [address] Potassium [Moles/Vol] 4.3 mmol/L Normal 3.3-5.1 [facility] Comment on above: Order Comment: Order Date: 03/02/25Order Info: 785- - CMPOrder Info: [id number] - LIPIDOrder Info: [id number] - MGOrder Info: [id number] - TSHOrder Info: 3024-7 - T4F Performed By: #### L 501.9520, L501.5200, L500.4050, L501.9985, L500.4100 ####[facility] [address] [place], [address] Sodium [Moles/Vol] 137 mmol/L Normal 133-145 [facility] Comment on above: Order Comment: Order Date: 03/02/25Order Info: 07-1 - CMPOrder Info: [id number] - LIPIDOrder Info: [id number] - MGOrder Info: [id number] - TSHOrder Info: 3024-7 - T4F Performed By: #### L 501.9520, L501.5200, L500.4050, L501.9985, L500.4100 ####[facility] [address] [place], [address] T PROT 7.6 g/dL Normal 5.9-8.4 [facility] Comment on above: Order Comment: Order Date: 03/02/25Order Info: 86-1 - CMPOrder Info: [id number] - LIPIDOrder Info: [id number] - MGOrder Info: 3 - TSHOrder Info: 7 - T4F Performed By: #### L 501.9520, L501.5200, L500.4050, L501.9985, L500.4100 ####[facility] [address] [place], [address] Urea nitrogen [Mass/Vol] 14 mg/dL Normal - [facility] Comment on above: Order Comment: Order Date: 03/02/25Order Info: 785-1 - CMPOrder Info: [id number] - LIPIDOrder Info: [id number] - MGOrder Info: [id number] - TSHOrder Info: 3023-11 - T4F Performed By: #### L 501.9520, L501.5200, L500.4050, L501.9985, L500.4100 ####[facility] [address] [place], [address] Hemoglobin A1con 03-02-2025 HbA1c (Bld) [Mass fraction] 11.1 % High <=5.6 [facility] Comment on above: Order Comment: Order Date: 03/02/25Order Info: 4548-4 - A1C Result Comment: Norm al < 5.7 % Prediabetic 5.7 - 6.4 % Diabetic >or= 6.5 % Please note range changes. Performed By: #### L 501.9520, L501.5200, L500.4050, L501.9985, L500.4100 ####[facility] [address] [place], [address] Lipid Profileon 03-02-2025 CHOL:HDL 3.76 Normal [facility] Comment on above: Order Comment: Order Date: 03/02/25Order Info: 0786-1 - CMPOrder Info: [id number] - LIPIDOrder Info: [id number] - MGOrder Info: [id number] - TSHOrder Info: 3023-11 - T4F Performed By: #### L 501.9520, L501.5200, L500.4050, L501.9985, L500.4100 ####[facility] [address] [place], [address] Cholesterol [Mass/Vol] 186 mg/dL Normal <=200 [facility] Comment on above: Order Comment: Order Date: 03/02/25Order Info: 0786-1 - CMPOrder Info: [id number] - LIPIDOrder Info: [id number] - MGOrder Info: 3016-3 - TSHOrder Info: 3024-7 - T4F Result Comment: Chol esterol level, Desirable <200 mg/dL Borderline high cholesterol 200-239 mg/dL High cholesterol >=240 mg/dL Recommendations of the NCEP Adult Treatment Panel for the following risk-cutoff thresholds for the [place] population. Performed By: #### L 501.9520, L501.5200, L500.4050, L501.9985, L500.4100 ####[facility] [address] [place], [address] Cholesterol in HDL [Mass/Vol] 50 mg/dL Normal [facility] Comment on above: Order Comment: Order Date: 03/02/25Order Info: 785-1 - CMPOrder Info: [id number] - LIPIDOrder Info: [id number] - MGOrder Info: 3016-3 - TSHOrder Info: 3024-7 - T4F Result Comment: Connie onal Cholesterol Education Program (NCEP) guidelines: <40 mg/dL: Low HDL-cholesterol (major risk factor for CHD) >= 60 mg/dL: High HDL-cholesterol (negative risk factor for CHD) HDL-cholesterol is affected by a number of factors, e.g. smoking, exercise, hormones, sex and age. Performed By: #### L 501.9520, L501.5200, L500.4050, L501.9985, L500.4100 ####[facility] [address] [place], [address] Cholesterol in LDL [Mass/Vol] 116 mg/dL Normal [facility] Comment on above: Order Comment: Order Date: 03/02/25Order Info: 86-1 - CMPOrder Info: [id number] - LIPIDOrder Info: [id number] - MGOrder Info: 3 - TSHOrder Info: 7 - T4F Result Comment: Bord bmuzay=314-227 mg/dL Higher Mfwu=424 mg/dL or greater Friedwald Equation for LDL-C Performed By: #### L 501.9520, L501.5200, L500.4050, L501.9985, L500.4100 ####[facility] [address] [place], [address] Cholesterol in VLDL [Mass/Vol] 21 mg/dL Normal 5-40 [facility] Comment on above: Order Comment: Order Date: 03/02/25Order Info: 785-1 - CMPOrder Info: - LIPIDOrder Info: [id number] - MGOrder Info: [id number] - TSHOrder Info: 3023-11 - T4F Performed By: #### L 501.9520, L501.5200, L500.4050, L501.9985, L500.4100 ####[facility] [address] [place], [address] Triglyceride [Mass/Vol] 103 mg/dL Normal [facility] Comment on above: Order Comment: Order Date: 03/02/25Order Info: 785- - CMPOrder Info: - LIPIDOrder Info: [id number] - MGOrder Info: 3 - TSHOrder Info: 3023-7 - T4F Result Comment: The drugs N-Acetylcysteine and Metamizole may falsely depress this assay. Normal range: <150 mg/dL Borderline High: 150-199 mg/dL High: 200-499 mg/dL Very High: >500 mg/dL Performed By: #### L 501.9520, L501.5200, L500.4050, L501.9985, L500.4100 ####[facility] [address] [place], [address] Magnesiumon 10-03-2025 Magnesium [Mass/Vol] 2.3 mg/dL High 1.5-2.2 [facility] Comment on above: Order Comment: Order Date: 03/02/25Order Info: 0786-1 - CMPOrder Info: [id number] - LIPIDOrder Info: [id number] - MGOrder Info: [id number] - TSHOrder Info: 3024-7 - T4F Performed By: #### L 501.9520, L501.5200, L500.4050, L501.9985, L500.4100 ####[facility] [address] [place], [address] T4 Free Directon 03-02-2025 T4 FREE DIRECT 1.30 ng/dL Normal 0.76-1.46 [facility] Comment on above: Order Comment: Order Date: 03/02/25Order Info: 785-1 - CMPOrder Info: [id number] - LIPIDOrder Info: [id number] - MGOrder Info: 3016-3 - TSHOrder Info: 3024-7 - T4F Performed By: #### L 506.0400 ####[facility] [address] [place], [address] Thyroid Stim Hormone (TSH)on 03-02-2025 TSH 1.880 uIU/mL Normal 0.300-4.200 [facility] Comment on above: Order Comment: Order Date: 03/02/25Order Info: 86-1 - CMPOrder Info: [id number] - LIPIDOrder Info: [id number] - MGOrder Info: [id number] - TSHOrder Info: 3024-7 - T4F Performed By: #### L 501.9520, L501.5200, L500.4050, L501.9985, L500.4100 ####[facility] [address] [place], [address] Urinalysis, Completeon 03-02 BACTERIA 0 SEEN Normal None Seen [facility] Comment on above: Order Comment: Urine , Random Performed By: #### L 400.0001, L3300.6750 #### [facility] [address] [place], [address] EPI,SQUAMOUS 0 SEEN Normal 0-5 [facility] Comment on above: Order Comment: Urine , Random Performed By: #### L 400.0001, L3300.6750 #### [facility] [address] [place], [address] Mucus Ql (Urine sed) [address] [facility] Comment on above: Order Comment: Urine , Random Performed By: #### L 400.0001, L3300.6750 #### [facility] [address] [place], [address] RBC 0 SEEN Normal 0-[address] [place] [address] Comment on above: Order Comment: Urine , Random Performed By: #### L 400.0001, L3300.6750 #### [facility] [address] [place], [address] WBC 0 SEEN Normal 0-[address] [place] [address] Comment on above: Order Comment: Urine , Random Performed By: #### L 400.0001, L3300.6750 #### [facility] [address] [place], [address] 12 Lead EKGon 03-01-2025 12 Lead EKG [facility] Cardiovascular Services [address] [place] [address] 12 Lead EKG 03/01/25 1725 MR#: [id number] Acct: [id number] Name: RACHID BENDER Rep #: [id number] : 1975 49 From: Libra Lacy MD [...] Abnormal ECG Confirmed by YORDAN LÓPEZ, NIURKA ([id number]), web content editor TARAH VELEZ ([id number]) on 03/05/2025 6:18:36 AM Referred By: Confirmed By: NIURKA LACY MD 03/05/25617 Date Libra Lacy MD CC: Dr. Eddy Escobar, DO; Dr. Derick Montes MD Signed Normal [facility] Absolute lymphocyte countOrd ered By: Eddy Escobar on 03-01-2025 Lymphocytes Auto (Unsp spec) [#/Vol] 2.49 10*3/uL 0.83-4.51 [facility] Absolute neutrophil countOrd ered By: Eddy Escobar on 03-01-2025 Neutrophils (Bld) [#/Vol] 6.4 10*3/uL 2.0-7.7 [facility] Anion gap in Serum or Plasma Ordered By: Eddy Escobar on 03-01-2025 Anion gap [Moles/Vol] 13 mmol/L - [facility] Automated lymphocyte count a s percentage of total leukocytesOrdered By: Eddy Escobar on 03-01-2025 Lymphocytes/100 WBC Auto (Unsp spec) 25.3 % -41 [facility] BUN/creatinine ratioOrdered By: Eddy Escobar on 03-01-2025 Urea nitrogen/Creatinine [Mass ratio] 19.0 mg/mg - [facility] Basic Metabolic Profile (BMP )on 03-01-2025 BUN/CRE 19.0 RATIO Normal 03-19 [facility] Comment on above: Performed By: #### L 500.2500, L100.0100 #### [facility] [address] [place], [address] Calcium [Mass/Vol] 9.1 mg/dL Normal 7.6-11.0 [facility] Comment on above: Performed By: #### L 500.2500, L100.0100 #### [facility] [address] [place], [address] Chloride [Moles/Vol] 99 mmol/L Normal 98-108 [facility] Comment on above: Performed By: #### L 500.2500, L100.0100 #### [facility] [address] [place], [address] CO2 [Moles/Vol] 22.5 mmol/L Normal 21.0-32.0 [facility] Comment on above: Performed By: #### L 500.2500, L100.0100 #### [facility] [address] [place], [address] Creatinine [Mass/Vol] 0.97 mg/dL Normal 0.70-1.20 [facility] Comment on above: Performed By: #### L 500.2500, L100.0100 #### [facility] [address] [place], [address] ECRCL 119.02 ml/min Normal 50-250 [facility] Comment on above: Performed By: #### L 500.2500, L100.0100 #### [facility] [address] [place], [address] GAP 13 Normal 5-15 [facility] Comment on above: Performed By: #### L 500.2500, L100.0100 #### [facility] [address] [place], [address] GFR/1.73 sq M.predicted among non-blacks MDRD (S/P/Bld) [Vol rate/Area] 95 mL/min/{1.73_m2} Normal >60 [facility] Comment on above: Result Comment: mL/m in/1.73m2 CKD-EPI Creatinine Equation (2020) Performed By: #### L 500.2500, L100.0100 #### [facility] [address] [place], [address] Glucose [Mass/Vol] 175 mg/dL High 70-99 [facility] Comment on above: Performed By: #### L 500.2500, L100.0100 #### [facility] [address] [place], [address] Potassium [Moles/Vol] 3.7 mmol/L Normal 3.3-5.1 [facility] Comment on above: Performed By: #### L 500.2500, L100.0100 #### [facility] [address] [place], [address] Sodium [Moles/Vol] 135 mmol/L Normal 133-145 [facility] Comment on above: Performed By: #### L 500.2500, L100.0100 #### [facility] [address] [place], [address] Urea nitrogen [Mass/Vol] 18 mg/dL Normal 4-19 [facility] Comment on above: Performed By: #### L 500.2500, L100.0100 #### [facility] [address] [place], [address] Basophil percentageOrdered B y: Eddy Escobar on 03-01-2025 Basophils/100 WBC (Bld) 0.7 % 0-1 [facility] Brain/Head without Contrasto n 03-01-2025 Brain/Head without Contrast [facility] Imaging Services [address] [place] [address] Brain/Head without Contrast MR#: [id number] Acct: [id number] Name: MARYCRUZRACHID Nella Rep #: [id number] : 1975 M 49 From: Claudio Diehl MD PCP: Dr. Derick Montes MD Status: PRE ER Study: Brain/Head without Contrast Date of Exam: 07/25 Exam# [id number] Ordering Dr: Eddy Escobar DO PROCEDURE: BRAIN/HEAD [...] IMPRESSION: No acute intracranial abnormality. Reading Location: [id number] CC: Dr. Eddy Escobar DO; Dr. Derick Montes MD Accounts Payable Processor: Signed Normal [facility] CBC W/Diff, Automatedon 10-0 Absolute Lymph 2.49 X10 3/uL Normal 0.83-4.51 [facility] Comment on above: Performed By: #### L 500.2500, L100.0100 #### [facility] [address] [place], [address] Absolute Neut 6.4 X10 3/uL Normal 2.0-7.7 [facility] Comment on above: Performed By: #### L 500.2500, L100.0100 #### [facility] [address] [facility] [address] Basophils/100 WBC (Bld) 0.7 % Normal 0-1 [facility] Comment on above: Performed By: #### L 500.2500, L100.0100 #### [facility] [address] [place], [address] Eosinophils/100 WBC (Bld) 1.9 % Normal 0-5 [facility] Comment on above: Performed By: #### L 500.2500, L100.0100 #### [facility] [address] [place], [address] Erythrocyte distribution width (RBC) [Ratio] 13.1 % Normal 11.6-14.6 [facility] Comment on above: Performed By: #### L 500.2500, L100.0100 #### [facility] [address] [place], [address] Hematocrit (Bld) [Volume fraction] 46.9 % Normal 40-54 [facility] Comment on above: Performed By: #### L 500.2500, L100.0100 #### [facility] [address] [place], [address] Hemoglobin (Bld) [Mass/Vol] 16.1 g/dL Normal 13.0-16.5 [facility] Comment on above: Performed By: #### L 500.2500, L100.0100 #### [facility] [address] [place], [address] IG% 0.300 Normal 0.0-0.9 [facility] Comment on above: Result Comment: IG% - Immature Granulocytes (promyelocytes, myelocytes and metamyelocytes) > 1% indicates that a LEFT SHIFT is Present. Performed By: #### L 500.2500, L100.0100 #### [facility] [address] [place], [address] Lymphocytes/100 WBC (Bld) 25.3 % Normal 19-41 [facility] Comment on above: Performed By: #### L 500.2500, L100.0100 #### [facility] [address] [place], [address] MCH (RBC) [Entitic mass] 28.1 pg Normal 27.0-32.0 [facility] Comment on above: Performed By: #### L 500.2500, L100.0100 #### [facility] [address] [place], [address] MCHC (RBC) [Mass/Vol] 34.3 g/dL Normal 32-36 [facility] Comment on above: Performed By: #### L 500.2500, L100.0100 #### [facility] [address] [place], [address] MCV (RBC) [Entitic vol] 82.0 fL Normal 80-94 [facility] Comment on above: Performed By: #### L 500.2500, L100.0100 #### [facility] [address] [place], [address] Monocytes/100 WBC (Bld) 6.5 % Normal 0-10 [facility] Comment on above: Performed By: #### L 500.2500, L100.0100 #### [facility] [address] [place], [address] Neutrophils/100 WBC (Bld) 65.3 % Normal 47-70 [facility] Comment on above: Performed By: #### L 500.2500, L100.0100 #### [facility] [address] [place], [address] Nucleated RBC (Bld) [#/Vol] 0 10*3/uL Normal 0-5 [facility] Comment on above: Performed By: #### L 500.2500, L100.0100 #### [facility] [address] [place], [address] Platelet mean volume (Bld) [Entitic vol] 11.1 fL Normal 6.2-12.0 [facility] Comment on above: Performed By: #### L 500.2500, L100.0100 #### [facility] [address] [place], [address] Platelets (Bld) [#/Vol] 260 10*3/uL Normal 150-450 [facility] Comment on above: Performed By: #### L 500.2500, L100.0100 #### [facility] [address] [place], [address] RBC (Bld) [#/Vol] 5.72 10*6/uL Normal 4.6-6.2 [facility] Comment on above: Performed By: #### L 500.2500, L100.0100 #### [facility] [address] [place], [address] RDW SD 38.9 fl Normal 35.1-43.9 [facility] Comment on above: Performed By: #### L 500.2500, L100.0100 #### [facility] [address] [place], [address] WBC (Bld) [#/Vol] 9.9 10*3/uL Normal 4.4-11.0 [facility] Comment on above: Performed By: #### L 500.2500, L100.0100 #### [facility] [address] [place], [address] Carbon dioxide, total [Moles /volume] in Central venous bloodOrdered By: Eddy Escobar on 03-01-2025 CO2 [Moles/Vol] 22.5 mmol/L 21.0-32.0 [facility] Chest PA and Lateralon 03-01 Chest PA and Lateral [facility] Imaging Services [address] [place] [address] Chest PA and Lateral MR#: [id number] Acct: [id number] Name: RACHID BENDER Rep #: [id number] : 1975 M 49 From: Hilario Crane MD PCP: Dr. Derick Montes MD Status: PRE ER Study: Chest PA and Lateral Date of Exam: 03/01/25 Exam# [id number] Ordering Dr: Eddy Escobar DO PROCEDURE: CHEST [...] Mild bilateral pulmonary vascular congestion. Reading Location: [id number] CC: Dr. Eddy Escobar DO; Dr. Derick Montes MD Accounts Payable Processor: Signed Normal [facility] Chloride assayOrdered By: Ravi Escobar on 03-01-2025 Chloride [Moles/Vol] 99 mmol/L 98-108 [facility] Emergency Department Summary on 03-01-2025 Emergency Department Summary [facility] Medical Records Department [address] [place] [address] Emergency Department Summary 03/01/25 MR#: [id number] Acct: [id number] Name: RACHID BENDER Rep #: [id number] : 1975 49 From: Eddy Escobar DO [...] his feet bilaterally. Patient denies any weakness. [facility] Medical History (Updated 03/01/25 @ 21:06 by [...] for car (more content not included)... Normal [facility] Eosinophil percentageOrdered By: Eddy Escobar on 03-01-2025 Eosinophils/100 WBC (Bld) 1.9 % 0-5 [facility] Erythrocyte distribution wid th ratioOrdered By: Eddy Escobar on 03-01-2025 Erythrocyte distribution width (RBC) [Ratio] 13.1 % 11.6-14.6 [facility] Erythrocyte distribution wid th standard deviationOrdered By: Eddy Escobar on 03-01-2025 Erythrocyte distribution width (RBC) [Ratio] 38.9 fl 35.1-43.9 [facility] Glomerular filtration rate ( GFR) estimation/1.73 sq m using serum, plasma, or whole bOrdered By: Eddy Escobar on 03-01-2025 GFR/1.73 sq M.predicted among non-blacks MDRD (S/P/Bld) [Vol rate/Area] 95 mL/min/{1.73_m2} >60 [facility] Comment on above: mL/min/1.73m2 CKD-EP I Creatinine Equation (2020) Hematocrit Auto (Bld) [Volum e fraction]Ordered By: Eddy Escobar on 03-01-2025 Hematocrit (Bld) [Volume fraction] 46.9 % 40-54 [facility] Hemoglobin measurementOrdere d By: Eddy Escobar on 03-01-2025 Hemoglobin (Bld) [Mass/Vol] 16.1 g/dL 13.0-16.5 [facility] Immature granulocytes/100 WB C Auto (Bld)Ordered By: Eddy Escobar on 03-01-2025 Immature granulocytes/100 WBC (Bld) 0.300 % 0.0-0.9 [facility] Comment on above: IG% - Immature Granu locytes (promyelocytes, myelocytes and metamyelocytes) > 1% indicates that a LEFT SHIFT is Present. L501.4021on 03-01-2025 Trop T High Sen 18 ng/L Normal <=22 [facility] Comment on above: Performed By: #### L 501.4021 #### [facility] [address] [place], [address] MCV (mean corpuscular volume ) determinationOrdered By: Eddy Escobar on 03-01-2025 MCV (RBC) [Entitic vol] 82.0 fL 80-94 [facility] Mean corpuscular hemoglobin (MCH) determinationOrdered By: Eddy Escobar on 03-01-2025 MCH (RBC) [Entitic mass] 28.1 pg 27.0-32.0 [facility] Mean corpuscular hemoglobin concentration (MCHC) determinationOrdered By: Eddy Escobar on 03-01-2025 MCHC (RBC) [Mass/Vol] 34.3 g/dL 32-36 [facility] Mean platelet volume determi nationOrdered By: Eddy Escobar on 03-01-2025 Platelet mean volume (Bld) [Entitic vol] 11.1 fL 6.2-12.0 [facility] Monocyte percentageOrdered B y: Eddy Escobar on 03-01-2025 Monocytes/100 WBC (Bld) 6.5 % 0-10 [facility] Neutrophil percentageOrdered By: Eddy Escobar on 03-01-2025 Neutrophils/100 WBC (Bld) 65.3 % 47-70 [facility] Nucleated red blood cell per centageOrdered By: Eddy Escobar on 03-01-2025 Nucleated RBC/100 WBC (Bld) [Ratio] 0 % 0-5 [facility] Platelet countOrdered By: Ravi Escobar on 03-01-2025 Platelets (Bld) [#/Vol] 260 10*3/uL 150-450 [facility] Potassium measurement (mass/ volume)Ordered By: Eddy Escobar on 03-01-2025 Potassium (Unsp spec) [Mass/Vol] 3.7 mmol/L 3.3-5.1 [facility] RBC Auto (Bld) [#/Vol]Ordere d By: Eddy Escobar on 03-01-2025 RBC (Bld) [#/Vol] 5.72 10*6/uL 4.6-6.2 [facility] Serum creatinine measurement (mass/volume)Ordered By: Eddy Escobar on 03-01-2025 Creatinine [Mass/Vol] 0.97 mg/dL 0.70-1.20 [facility] Serum glucose measurement (m ass/volume)Ordered By: Eddy Escobar on 03-01-2025 Glucose [Mass/Vol] 175 mg/dL High 70-99 [facility] Serum or plasma calcium tra urement (mass/volume)Ordered By: Eddy Escobar on 03-01-2025 Calcium [Mass/Vol] 9.1 mg/dL 7.6-11.0 [facility] Serum or plasma urea nitroge n measurement (mass/volume)Ordered By: Eddy Escobar on 03-01-2025 Urea nitrogen [Mass/Vol] 18 mg/dL 4-19 [facility] Sodium levelOrdered By: Eddy Escobar on 03-01-2025 Sodium [Moles/Vol] 135 mmol/L 133-145 [facility] Troponin T HS 2 HRon 025 Trop T High Sen 18 ng/L Normal <=22 [facility] Comment on above: Performed By: #### L 499.0042 #### [facility] [address] [place], [place], [address] Troponin T HS 4 HRon 025 Trop T High Sen Normal <=22 [facility] Comment on above: Result Comment: ABDIRIZAK ENT DISCHARGED Performed By: #### L 499.0043 #### [facility] [address] [place], [address] Troponin T.cardiac [Mass/vol ume] in Serum or Plasma by High sensitivity methodOrdered By: Eddy Escobar on 03-01-2025 Troponin T.cardiac High sensitivity method [Mass/Vol] 18 ng/L <22 [facility] Troponin T.cardiac High sensitivity method [Mass/Vol] 18 ng/L <22 [facility] White blood cell (WBC) count Ordered By: Eddy Escobar on 03-01-2025 WBC (Bld) [#/Vol] 9.9 10*3/uL 4.4-11.0 [facility] CNOVon 11-23-2023 CNOV Office Visit (AGPOB3) ---- RACHID BENDER ([id number]) 1975 [facility] Date Time Provider Department 11/23/23 3:15 [...] in this document, created by the medical apparatus model maker for me, accurately reflects the services I [...] for Encounter Date Provider Department Center 11/23/2023 [id number] JR, WIL*AGPOB3 Ag Pob Encounter Status:Closed by ANKUSH OROZCO on 11/23/23 [facility] CNTHERAPYon 11-19-2023 CNTHERAPY OT/PT/Speech Visit (AKOTB) ---- RACHID BENDER ([id number]) 1975 M [place] Date Time Provider Department 11/19/23 3:30 PM BRAD DLEATORRE Date Time Provider Department Center 11/19/2023 3:30 PM [id number] DELATORRE Ag [facility] Reason for Visit: Occupational Therapy [504] [...] Diabetes 2, 250.00, 3mo supply ---- Normal [facility] CNTHERAPYon 11-08-2023 CNTHERAPY OT/PT/Speech Visit (AKOTB) ---- RACHID BENDER ([id number]) 1975 M [place] Date Time Provider Department 11/08/23 3:30 PM BRAD DELATORRE Date Time Provider Department Center 11/08/2023 3:30 PM [id number] DELATORRE [facility] Reason for Visit: Occupational Therapy [504] [...] Diabetes 2, 250.00, 3mo supply ---- Normal [facility] CNOVon 10-26-2023 CNOV Office Visit (AGPOB3) ---- RACHID BENDER ([id number]) 1975 M [facility] Date Time Provider Department 10/26/23 1:45 [...] in this document, created by the medical apparatus model maker for me, accurately reflects the services I [...] for Encounter Date Provider Department Center 10/26/2023 [id number] JR, WIL*AGPOB3 AG POB Letter Text Encounter Status:Closed by ANKUSH OROZCO on 10/26/23 Normal [facility] CNTHERAPYon 10-26-2023 CNTHERAPY OT/PT/Speech Visit ([facility]) ---- RACHID BENDER ([id number]) 1975 [place] Date Time Provider Department 10/26/23 1:45 PM [facility] Date Time Provider Department Center 10/26/2023 1:45 PM [id number] [facility] Reason for Visit: Occupational Therapy [504] [...] Diabetes 2, 250.00, 3mo supply ---- Normal [facility] CNTHERAPYon 10-18-2023 CNTHERAPY OT/PT/Speech Visit ([facility]) ---- RACHID BENDER ([id number]) 1975 M [place] Date Time Provider Department 10/18/23 2:30 PM BRAD DELATORRE Date Time Provider Department Center 10/18/2023 2:30 PM [id number] DELATORRE Reason for Visit: OT EVAL [748] [...] 2, 250.00, 3mo supply ---- [facility] [id number] 10-14-2023 [id number] HNO ID: [id number] Author: BECK HUFF RN Service: ? Author Type: Registered Nurse Type: [id number] Filed: 10/14/2023 16:15 Note Text: You may also take Tylenol and NSAIDs such as Advil, Motrin and Ibuprofen as instructed on the bottle. [facility] BRIEF OP NOTon 10-14-2023 BRIEF OP NOT HNO ID: [id number] Author: ANKUSH OROZCO JR, MD Service: Hand Surgery Author Type: Physician Type: Brief Op Note Filed: 10/14/2023 16:05 Note Text: HAND SURGERY BRIEF OPERATIVE NOTE LOG ID: [id number] Surgery/Procedure Date: 10/14/2023 Incision/Procedure Start Time: 3:37 PM Incision Close/Procedure End Time: 3:58 PM Surgeon(s)/Procedur myar(s) and Forcer Maker(s): Surgeon(s) and Role: * nAkush Orozco Jr., MD - Primary No Additional [...] TIME: 3:58 PM PAGER/CONTACT #: [phone] Normal [facility] HISTORY PHYSICALon HISTORY PHYSICAL HNO ID: [id number] Author: NALINI DUENAS APRN.SEO CONSULTANT Service: ? Author Type: Nurse Practitioner Type: [...] left thumb with tendon involvement, initial encounter [E55.012A] HPI: Rachid Bender is a 48 year [...] requiring medication, no history of angina, CHF, OR, cardiac surgery or stents. Denies rest pain, gangrene or revascularization/a mputation for PVD. No history of cardiovascular symptoms or problems. No history of angina, CHF, OR, cardiac surgery or stents. Denies chest pain [...] kg/(m2). O (more content not included)... Normal [facility] OPERATIVE NOon 10-14-2023 OPERATIVE NO HNO ID: [id number] Author: ANKUSH OROZCO JR, MD Service: Hand Surgery Author Type: Physician Type: Operative Report Filed: 10/15/2023 07:32 Note Text: HAND SURGERY OPERATIVE NOTE LOG ID: [id number] Surgery/Procedure Date: 10/14/2023 Incision/Procedure Start Time: 3:37 PM Incision Close/Procedure End Time: 3:58 PM Surgeon(s)/Procedur alist(s) and Forcer Maker(s): Surgeon(s) and Role: * Ankush Orozco Jr., [...] modified Dias technique. I then placed 3 [id number] sutures in the repair as well yielding [...] TIME: 3:58 PM PAGER/CONTACT #: [phone] Normal [facility] CNOVon 10-12-2023 CNOV Office Visit (AGPOB3) ---- RACHID BENDER ([id number]) 1975 [facility] Date Time Provider Department 10/12/23 9:15 [...] in this document, created by the medical apparatus model maker for me, accurately reflects the services I personally performed and the decisions made by me. I have reviewed and approved this document for accuracy. Ankush Orozco MD Please note: This note has been produced using speech recognition (more content not included)... Normal [facility] 10-11-2023 [facility] Telephone (AGPOB3) ---- RACHID BENDER ([id number]) 1975 M [facility] Date Time Provider Department 10/11/23 ANKUSH [...] than patient: Margaret mendiola Best contact number: [phone] Thank you, Rachell Flores October 11, 2023 8:04 AM Allergies As of Date: 10/11/2023 Noted Allergy Reaction BUPROPION 10/04/2006 5 - Intolerance Comments: Muscle cramps, tongue biting METFORMIN 12/20/2017 6 - Diarrhea Comments: at doses over 1500mg /d Date Reviewed: 10/10/2023 Reviewed by: Mirna Pritchard RN - Fully Assessed Reason for Visit: ER F/U [41] Cmt: [place] 10/09 Prescriptions as of 10/11/2023 - CPAP [...] by DONNA SANTAMARIA on 10/11/23 [facility] ED NOTEon 10-10-2023 ED NOTE HNO ID: [id number] Author: MIRNA PRITCHARD RN Service: ? Author [...] else to help you? No [facility] ED NOTE HNO ID: [id number] Author: MIRNA PRITCHARD RN Service: ? Author Type: Registered Nurse Type: ED Notes Filed: 10/10/2023 17:14 Note Text: Dr Jaramillo aware of BP. Pt reports he will follow up and it will be fine pt states he does not want BP addressed this visit Verbalizes understanding of hypertension and risks. States he would like to go home. Normal [facility] ED NOTE HNO ID: [id number] Author: MIRNA PRITCHARD RN Service: ? Author Type: Registered Nurse Type: ED Notes Filed: 10/10/2023 14:49 Note Text: Pt arrives with steady gait to ED bed 4 C/O left thumb pain laceration from a filet knife Reports last tetanus less than 5 years ago Arrives with slow bleeding to wound, pressure applied Normal [facility] ED PROV NOTEon 10-10-2023 ED PROV NOTE HNO ID: [id number] Author: LISA JARAMILLO MD Service: Emergency Medicine Author Type: Physician Type: ED Provider Notes Filed: 10/10/2023 17:21 Note Text: ED Provider Note Patient Name: Rachid Bender : 1975 SERVICE DATE: 10/10/23 History Patient presents with: Finger Injury Laceration Gerkg-ylpg-vzjlgocc male, with up-to-date tetanus presents emergency room [...] type MDM / Disposition / Plan 48-year-old uepom-udtv-rrljakru male, presents the emergency room with concerns [...] the emerge (more content not included)... Normal [facility] Comp Metabolic Panelon 10-02 Albumin [Mass/Vol] 4.5 g/dL Normal 3.9-4.9 [facility] Comment on above: Performed By: #### C MP, HBA1C #### [facility] Routine Lab [address] [place], [place] [address] ALP [Catalytic activity/Vol] 61 U/L Normal 38-113 [facility] Comment on above: Performed By: #### C MP, HBA1C #### [facility] Routine Lab [address] [place], [place] [address] ALT [Catalytic activity/Vol] 39 U/L Normal 10-54 [facility] Comment on above: Performed By: #### C MP, HBA1C #### [facility] Routine Lab [address] [place], [place] [address] Anion gap [Moles/Vol] 12 mmol/L Normal 9-18 [facility] Comment on above: Performed By: #### C MP, HBA1C #### [facility] Routine Lab [address] [place], [place] [address] AST [Catalytic activity/Vol] 27 U/L Normal 14-40 [facility] Comment on above: Performed By: #### C MP, HBA1C #### [facility] Routine Lab [address] [place], [place] [address] Bilirubin [Mass/Vol] 0.4 mg/dL Normal 0.2-1.3 [facility] Comment on above: Performed By: #### C MP, HBA1C #### [facility] Routine Lab [address] [place], [place] [address] Calcium [Mass/Vol] 9.5 mg/dL Normal 8.5-10.2 [facility] Comment on above: Performed By: #### C MP, HBA1C #### [facility] Routine Lab [address] [place] [address] Chloride [Moles/Vol] 96 mmol/L Low 97-105 [facility] Comment on above: Performed By: #### C MP, HBA1C #### [facility]ine Lab [address] [place], [place] [address] CO2 [Moles/Vol] 25 mmol/L Normal 22-30 [facility] Comment on above: Performed By: #### C MP, HBA1C #### [facility] Routine Lab [address] [place], [place] [address] Creatinine [Mass/Vol] 0.71 mg/dL Low 0.73-1.22 [facility] Comment on above: Performed By: #### C MP, HBA1C #### [facility] Routine Lab [address] [place] [id number] eGFR- Amer. >60 Normal [facility] Comment on above: Performed By: #### C MP, HBA1C #### [facility] Routine Lab [address] [place], [place] [address] eGFR-All Other Races >60 Normal [facility] Comment on above: Performed By: #### C MP, HBA1C #### [facility]ine Lab [address] [place], [place] [address] Glucose [Mass/Vol] 323 mg/dL High 74-99 [facility] Comment on above: Performed By: #### C MP, HBA1C #### [facility]ine Lab [address] [place], [place] [address] Potassium [Moles/Vol] 4.5 mmol/L Normal 3.7-5.1 [facility] Comment on above: Performed By: #### C MP, HBA1C #### [facility]ine Lab [address] [place], [place] [address] Protein [Mass/Vol] 7.8 g/dL Normal 6.3-8.0 [facility] Comment on above: Performed By: #### C MP, HBA1C #### [facility]ine Lab [address] [place], [place] [address] Sodium [Moles/Vol] 133 mmol/L Low 136-144 [facility] Comment on above: Performed By: #### C MP, HBA1C #### [facility] Routine Lab [address] [place], [place] [address] Urea nitrogen [Mass/Vol] 13 mg/dL Normal 9-24 [facility] Comment on above: Performed By: #### C MP, HBA1C #### [facility] Routine Lab [address] [place], [place] [address] Hemoglobin A1con 10-02-2020 Glucose [Mass/Vol] 312 mg/dL Normal [facility] Comment on above: Performed By: #### C MP, HBA1C #### [facility] Routine Lab [address] [place], [place] [address] HbA1c (Bld) [Mass fraction] 12.5 % High 4.3-5.6 [facility] Comment on above: Performed By: #### C MP, HBA1C #### [facility] Routine Lab [address] [place], [place] [address] CNPTOUTREACHon 08-08-2020 CNPTOUTREACH Patient Outreach (COVAMN) ---- RACHID EBNDER ([id number]) 1975 [facility] Date Time Provider Department 08/08/20 WEATHERS, [...] Fully Assessed Order(s):SARS-COVID VACCINE 1ST DOSE APPT [[id number]] Order #: [id number] FUTURE Prescriptions as of 08/08/2020 Sig: CPAP [...] Status:Closed by EPIC, PRODUSER on 08/12/20 Normal [facility] Vital Signs Date Time Vital Sign Value Performing Clinician Faci geoffy 03-01-2025 21:38-0400 Body temperature 97.9 [degF] Dr. Derick Montes MD Work Phone: [facility] 03-01-2025 21:38-0400 Diastolic blood pressure 93 mm[Hg] Dr. Derick Montes MD Work Phone: [facility] 03-01-2025 21:38-0400 Heart rate 80 /min Dr. Derick Montes MD Work Phone: [facility] 03-01-2025 21:38-0400 Respiratory rate 16 /min Dr. Derick Montes MD Work Phone: [facility] 03-01-2025 21:38-0400 SaO2% (BldA) [Mass fraction] 98 % Dr. Derick Montes MD Work Phone: [facility] 03-01-2025 21:38-0400 Systolic blood pressure 170 mm[Hg] Dr. Derick Montes MD Work Phone: [facility] 03-01-2025 16:50-0400 Body height 182.[address] Derick Montes MD Work Phone: [facility] 03-01-2025 16:50-0400 Body mass index (BMI) [Ratio] 34.9 kg/m2 Dr. Derick Montes MD Work Phone: [facility] 03-01-2025 16:50-0400 Body weight 117.[address] Derick Montes MD Work Phone: [facility] 11-23-2023 15:19-0400 Body height 182.9 cm Ankush Orozco Jr., MD Work Phone: [facility] 11-23-2023 15:19-0400 Body mass index (BMI) [Ratio] 35.26 kg/m2 Ankush Orozco Jr., MD Work Phone: [facility] 11-23-2023 15:19-0400 Body weight 117.94 kg Ankush Orozco Jr., MD Work Phone: [facility] 11-23-2023 15:19-0400 Respiratory rate 20 /min Ankush Orozco Jr., MD Work Phone: [facility] 10-26-2023 13:45-0400 Body height 182.9 cm Ankush Orozco Jr., MD Work Phone: [facility] 10-26-2023 13:45-0400 Body mass index (BMI) [Ratio] 35.26 kg/m2 Ankush Orozco Jr., MD Work Phone: [facility] 10-26-2023 13:45-0400 Body weight 117.94 kg Ankush Orozco Jr., MD Work Phone: [facility] [place] 10-26-2023 13:45-0400 Respiratory rate 18 /min Ankush Orozco Jr., MD Work Phone: [facility] [place] 10-12-2023 09:29-0400 Body height 182.9 cm Ankush Orozco Jr., MD Work Phone: [facility] [place] 10-12-2023 09:29-0400 Body mass index (BMI) [Ratio] 35.4 kg/m2 Ankush Orozco Jr., MD Work Phone: [facility] [place] 10-12-2023 09:29-0400 Body weight 118.39 kg Ankush Orozco Jr., MD Work Phone: [facility] [place] 10-12-2023 09:29-0400 Respiratory rate 20 /min Ankush Orozco Jr., MD Work Phone: [facility] [place] Encounters Encounter Date Encounter Type Care Provider Facility Start: 03-16-2025 ambulatory Derick Montes Facilit y:[facility] Start: 03-09-2025 ambulatory Derick Jane Schbrandee Facilit y:[facility] Start: 03-02-2025 ambulatory Derick E Schinner Facilit y:[facility] Start: 03-01-2025 End: 03-01-2025 Emergency department patient visit Dr. Derick Montes MD Work Phone: -Emergency Department Work Phone: Start: 11-23-2023 End: 11-23-2023 Patient encounter procedure Ankush Orozco MD Work Phone: [facility] Comment on above: Laceration of left t humb without foreign body without damage to nail, subsequent encounter (Primary Dx) Start: 11-23-2023 End: 11-23-2023 ambulatory ANKUSH OROZCO JR Facility:[facility] Start: 11-19-2023 End: 11-19-2023 ambulatory Brad eDlatorre OT/L [facility] Comment on above: Pain of left thumb ( Primary Dx) Start: 11-08-2023 End: 11-08-2023 ambulatory Brad Delatorre OT/L [facility] Comment on above: Pain of left thumb ( Primary Dx) Start: 10-26-2023 End: 10-26-2023 Patient encounter procedure Ankush Orozco MD Work Phone: [facility] Comment on above: Laceration of left t humb without foreign body without damage to nail, subsequent encounter (Primary Dx); Laceration of extensor tendon of left thumb at hand level Start: 10-26-2023 End: 10-26-2023 ambulatory Soco Suh OTR/L Work Phone: [facility] Comment on above: Pain of left thumb ( Primary Dx) Start: 10-18-2023 End: 10-18-2023 ambulatory Brad Delatorre OT/L [facility] Comment on above: Pain of left thumb ( Primary Dx) Start: 10-14-2023 Preprocedural examination done Brad Delatorre OT/L [facility] [place] Start: 10-14-2023 End: 10-14-2023 ambulatory ANKUSH OROZCO JR Facility:[facility] Start: 10-12-2023 End: 10-12-2023 Orders Only Ankush Orozco MD Work Phone: [facility] Comment on above: Laceration of left t humb with tendon involvement, initial encounter (Primary Dx) Laceration of left t humb without foreign body without damage to nail, initial encounter (Primary Dx); Laceration of extensor tendon of left thumb at hand level Start: 10-11-2023 Telephone encounter Ankush Carrion MD Work Phone: [facility] Comment on above: ER F/U ([place] 10/09) Start: 10-10-2023 Emergency department patient visit [facility] Facility:[facility] Procedures Date Procedure Procedure Detail Performing Clinician Start: 03-01-2025 Radiologic exam ches t [address] Derick Montes MD Work Phone: Start: 03-01-[address] Derick Montes MD Work Phone: Start: 03-01-2025 CT of head without contrast Dr. Derick Montes MD Work Phone: Plan of Treatment Date Care Activity Detail Author Start: 03-01-2025 [facility] Start: 03-01-2025 [facility] Start: 01-30-2024 Influenza vaccination Influenz a Vaccine (Season Ended) [facility] [place] Start: 12-13-2023 End: 12-13-2023 Follow-up encounter 12/13/2023 3:15 PM EDT OT/PT/Speech Visit [facility] [address] [place] [address] Soco Suh, OTR/L [address] [facility] [place] [address] Hand OT Follow Up: [facility] Comment on above: Hand OT Follow Up: Start: 11-23-2023 End: 11-23-2023 Patient encounter procedure [facility] Comment on above: PO 5 EXP PENETRAT ING WOUND OLEFT THUMB AND REPAIR OF EXTENSOR TENDON 4wk f/u PO 10/13 EXP PENETRAT ING WOUND ON LEFT THUMB AND REPAIR OF EXTENSOR TENDON 4wk f/u Start: 11-19-2023 End: 11-19-2023 ambulatory 11/19/2023 3:30 PM EDT OT/PT/Speech Visit [facility] [address] [place] [address] Brad Delatorre, OT/L NEEDS LIFETIME CONSENT SIGNED -JS 11/09/2023 [facility] Comment on above: NEEDS LIFETIME CONSE NT SIGNED -JS 11/09/2023 Start: 11-08-2023 End: 11-08-2023 Follow-up encounter 11/08/2023 3:30 PM EDT OT/PT/Speech Visit [facility] [address] [place] [address] Brad Delatorre, OT/L Hand OT Follow Up: [facility] Comment on above: Hand OT Follow Up: Start: 10-26-2023 End: 10-26-2023 Patient encounter procedure 10/26/2023 1:45 PM EDT Office Visit [facility] [address] [place] [address] Ankush Orozco Jr., MD [address] [address] PO 10/13 EXP PENETRATING WOUND OLEFT THUMB AND REPAIR OF EXTENSOR TENDON [facility] Comment on above: PO 10/13 EXP PENETRAT ING WOUND OLEFT THUMB AND REPAIR OF EXTENSOR TENDON Start: 10-18-2023 End: 10-18-2023 ambulatory 10/18/2023 2:30 PM EDT OT/PT/Speech Visit [facility] [address] [place] [address] Brad Delatorre, OT/L post op hand [facility] Comment on above: post op hand Start: 10-14-2023 End: 10-14-2023 Admission to same day surgery center 10/14/2023 3:30 PM EDT - 10/14/2023 4:30 PM EDT Surgery LOERNA VARGAS [address] [facility] [address] [place] [address] Ankush Orozco Jr., MD [address] [place], [place] [id number] EXPLORATION WOUND EXTREMITY PENETRATING, left thumb LORENA VARGAS Comment on above: EXPLORATION WOUND EX TREMITY PENETRATING, left thumb Start: 10-14-2023 End: 10-14-2023 Exploration penetrating wound spx extremity EXPLORATION WOUND EXTREMITY PENETRATING Laceration of left thumb with tendon involvement, initial encounter 10/14/2023 3:30 PM EDT [facility] Start: 10-14-2023 End: 10-14-2023 Repair extensor tendon finger w/o graft each REPAIR EXTENSOR TENDON FINGER W/O FREE GRAFT Laceration of left thumb with tendon involvement, initial encounter 10/14/2023 3:30 PM EDT [facility] Start: 10-14-2023 Subsequent hospital visit by physician LORENA VARGAS Comment on above: Laceration of left t humb with tendon involvement, initial encounter [S61.012A] Start: 10-12-2023 End: 10-12-2023 Patient encounter procedure 10/12/2023 9:15 AM EDT Office Visit [facility] [address] [place] [address] Ankush Orozco Jr., MD [address] [place] [address] lt thumb lac, [place] ER 10/09 [facility] Comment on above: lt thumb lac, [place] E R 10/09 Start: 08-06-2023 Shingrix Vaccine (1 of 2) Shingrix Vaccine (1 of 2) [facility] [place] Start: 05-31-2023 Behavioral Health Screening Behavioral Health Screening [facility] [place] Start: 01-29-2023 Covid-19 Vaccine () Covid-19 Vaccine ( season) [facility] [place] Start: 09-16-2019 Hepatitis B screening Urine Albumin:Creatinine Ratio [facility] [place] Start: 09-16-2019 Hepatitis B surface antibody level LDL Cholesterol [facility] [place] Start: 06-20-2019 BP Controlled (<130/80) BP Con trolled (<130/80) [facility] [place] Start: 03-17-2019 Hemoglobin A1c measurement HbA1C [facility] [place] Start: 2018 Screening for malign ant neoplasm of colon [facility] [place] Start: 01-06-2018 Glaucoma screening Dilated Retinal E xam [facility] [place] Start: 08-24-2017 Diabetic foot examination Diabetic Foot Exam [facility] [place] Start: 09-28-2014 Pneumococcal vaccination Pneumococcal Vaccine (2 of 2 - PCV) [facility] [place] Start: 1992 Urine microalbumin profile DTaP,Tdap,Td Vaccine (1 - Tdap) [facility] [place] Start: 08-06-1991 Annual PCP Team Sand[employer] Machine T[employer] Automatic baldomero Disease Visit Annual PCP Team Chronic Disease Visit [facility] [place] Start: 08-06-1991 Hepatitis C screening Hepatitis C Sc reening [facility] [place] Start: 08-06-1991 HIV screening HIV Screening [facility] Exploration penetrat ing wound spx extremity EXPLORATION WOUND EXTREMITY PENETRATING Laceration of left thumb with tendon involvement, initial encounter [facility] [place] Patient Education ED High Blood Pressure Hypertension [facility] Work Phone: Repair extensor tend on finger w/o graft each REPAIR EXTENSOR TENDON FINGER W/O FREE GRAFT Laceration of left thumb with tendon involvement, initial encounter [facility] [place] Troponin T.cardiac [Mass/volume] in Serum or Plasma by High sensitivity method [facility] Immunizations Immunization Date Immunization Notes Care Provider Augie gonzalez 09-28-2013 pneumococcal polysaccharide vaccine, 23 valent Ankush Orozco Jr., MD Work Phone: [facility] [place] 05-31-2005 hepatitis A vaccine, unspecified formulation Ankush Orozco Jr., MD Work Phone: [facility] [place] 05-31-2005 typhoid vaccine, unspecified formulation Ankush Orozco Jr., MD Work Phone: [facility] [place] 11-28-1998 hepatitis A vaccine, unspecified formulation Ankush Orozco Jr., MD Work Phone: [facility] [place] 11-28-1998 hepatitis B vaccine, adult dosage Ankush Orozco Jr., MD Work Phone: [facility] [place] 07-01-1998 hepatitis B vaccine, adult dosage Ankush Orozco Jr., MD Work Phone: [facility] [place] 05-31-1998 hepatitis B vaccine, adult dosage Ankush Orozco Jr., MD Work Phone: [facility] [place] Payers Date Payer Category Payer Self-pay 2025 Unknown [id number] 2022 Unknown MMO MMO [employer] PPO [id number] 2022-Present [phone] [address] [place] [address] PPO [id number] 2018 Unknown [id number] Unknown [id number] Unknown [id number] Unknown [id number] Unknown [id number] Unknown [id number] Social History Date Type Detail Facility Start: [facility]10[facility] [place] History of tobacco use Cigarette Smoker [facility] Start: 10-10-2023 End: 10-11-2023 Cigarettes smoked current (pack per day) - Reported 0.5 [facility] [place] Start: 10-10-2023 Tobacco use and exposure Smokeless tobacco non-user [facility] [place] Start: 10-10-2023 End: 11-23-2023 Alcohol intake Current drinker of alcohol (finding) [facility] Start: 10-10-2023 End: 10-11-2023 Tobacco use panel [facility] National Score (1-10 0), lower number is lower risk 50 [facility] [place] Start: 10-10-[address] [facility] Start: 1975 Sex Assigned At Not on file [facility] Start: 03-01-2025 Tobacco smoking stat us NHIS Never smoked tobacco (finding) [facility] Start: 1975 Sex Assigned At Male W [facility] Medical Equipment Procedure Code Equipment Code Equipment Origin al Text Equipment Identifier Dates Glucometer, test strips, lancets + accessories. Up to once a day testing. Diabetes 2, 250.00, 3mo supply [id number] Start: 09-07-2013 Mental Status Date Assessment Result Facility 03-01-2025 Cognitive function Level Of Consciousness Awake [facility] Work Phone: Clinical Notes 10-11-2023 to 03-01-2025 Ankush Orozco Jr., MD - 11/23/2023 7:25 AM EDTBrad Delatorre, OT/L - 11/22/2023 8:21 AM Brad Martins OT/L - 11/09/2023 8:44 AM EDTCSoco higgins OTR/L - 10/26/2023 3:29 PM EDT Note Date & Type Note Facility 03-01-2025 Radiology Diagnostic study note [facility] Imaging Services [address] [place], [place] [address] Brain/Head without Contrast MR#: [id number] Acct: [id number] Name: RACHID BENDER Rep #: [id number] : 1975 M 49 From: Philippe Diehl MD PCP: Dr. Derick Montes MD Status: [place] E ER Study:Brain/Head without Contrast Date of Exa m: 03/01/25 Exam# [id number] Ordering Dr: Eddy Escobar DO PROCEDURE: BRAIN/HEAD [...] IMPRESSION: No acute intracranial abnormality. Reading Location: [facility] CC: Dr. Eddy Escobar DO; Dr. Derick Montes MD ~ Accounts Payable Processor: Signed [facility] 03-01-2025 Radiology Diagnostic study note [facility] Imaging Services [address] [place], [place] [address] Chest PA and Lateral MR#: [id number] Acct: [id number] Name: RACHID BENDER Rep #: [id number] : 1975 M 49 From: Taryn Crane MD PCP: Dr. Derick Montes MD Status: [place] E ER Study:Chest PA and Lateral Date of Exam: 03/01/25 Exam# [id number] Ordering Dr: Eddy Escobar DO PROCEDURE: CHEST [...] Mild bilateral pulmonary vascular congestion. Reading Location: [facility] CC: Dr. Eddy Escobar DO; Dr. Derick Montes MD ~ Accounts Payable Processor: Signed [facility] 01-14-2024 Note HNO ID: [id number] Author: SOCO SUH OTR/Lizet Service: ? Author Type: Occupational Therapist Type: Progress Notes Filed: 01/14/2024 13:00 Note Text: 01/14/2024 [facility]ATIONAL [facility]ERAPY DISCONTINUANCE OF CARE Plan of Care Period: Start of Care Date: 10/18/23 Last Visit Date: 11/19/2023 Therapy Program: The following is a summary of the interventions provided for this episode of care; Therapeutic exercise, Therapeutic activities, Manual therapy, Self-half-way management, Orthotics management and training, Patient/Family/Caregiver Education, [...] scheduled additional follow-up appointments. Soco Suh, OTR/L,T [facility] 11-23-2023 Note HNO ID: [id number] Author: ANKUSH OROZCO JR, MD Service: ? [...] in this document, created by the medical apparatus model maker for me, accurately reflects the services I personally performed and the decisions made by me. I have reviewed and approved this document for accuracy. Ankush Orozco MD Please note: This note has been produced using speech recognition software and may contain errors related to that system including grammar, punctuation, spelling, gender and words and phrases that may be inappropriate. [facility] 11-23-2023 History of Presen t illness Narrative [...] in this document, created by the medical apparatus model maker for me, accurately reflects the services I personally performed and the decisions made by me. I have reviewed and approved this document for accuracy. Ankush Orozco MD Please note: This note has been produced using speech recognition software and may contain errors related to that system including grammar, punctuation, spelling, gender and words and phrases that may be inappropriate. documented in this encounter [facility] [place] 11-22-2023 Note HNO ID: [id number] Author: BRAD DELATORRE OT/L Service: ? Author [...] orthosis fabrication, Prefabricated orthosis fitting, Therapeutic exercise (19915), Therapeutic activities (72702), Manual therapy (14885), Neuromuscular re-education (41296), Self-half-way management (80482), Orthotics management and training (63256,06380), Paraffin Bath (12769), Fluidotherapy (36922) PLAN FOR NEXT VISIT: Progress per EPL [...] performance and compliance. Patient education as noted. Self-Senior Living Management: 1: Reviewed diagnosis, stages of protocol [...] Stop Time : 1600 Brad Delatorre OT/Lizet [facility] 11-22-2023 History of Presen t illness Narrative [...] orthosis fabrication, Prefabricated orthosis fitting, Therapeutic exercise (01150), Therapeutic activities (04401), Manual therapy (69830), Neuromuscular re-education (13031), Self-half-way management (16859), Orthotics management and training (05038,70478), Paraffin Bath (15623), Fluidotherapy (00205) PLAN FOR NEXT VISIT: Progress per EPL [...] 0 cm TREATMENT: Therapeutic Exercise: 1: Reviewed [facility] EPL repair protocol - MCP active flexion [...] performance and compliance. Patient education as noted. Self-Senior Living Management: 1: Reviewed diagnosis, stages of protocol [...] Brad Delatorre OT/Lizet documented in this encounter [facility] 11-09-2023 Note HNO ID: [id number] Author: BRAD DELATORRE OT/L Service: ? Author [...] improvements in thumb AROM as prescribe per [facility] EPL protocol. The patient will continue to benefit from ongoing skilled occupational therapy to progress toward set goals and to continue with post-operative protocol. Current Frequency: 1x/week Duration: 12 weeks Total Number of Visits Planned: 12 Planned Treatment Interventions: Custom orthosis fabrication, Prefabricated orthosis fitting, Therapeutic exercise (90102), Therapeutic activities (18923), Manual therapy (84581), Neuromuscular re-education (81722), Self-half-way management (41325), Orthotics management and training (74716,50237), Paraffin Bath (35587), Fluidotherapy (52193) PLAN FOR NEXT VISIT: Progress per EPL [...] 0 cm TREATMENT: Therapeutic Exercise: 1: Reviewed [facility] EPL repair protocol - MCP active flexion [...] performance and compliance. Patient education as noted. Self-Senior Living Management: 1: Reviewed diagnosis, stages of protocol [...] Stop Time : 1615 Brad Delatorre OT/L [facility] 11-09-2023 History of Presen t illness Narrative [...] improvements in thumb AROM as prescribe per [facility] EPL protocol. The patient will continue to benefit from ongoing skilled occupational therapy to progress toward set goals and to continue with post-operative protocol. Current Frequency: 1x/week Duration: 12 weeks Total Number of Visits Planned: 12 Planned Treatment Interventions: Custom orthosis fabrication, Prefabricated orthosis fitting, Therapeutic exercise (69426), Therapeutic activities (01773), Manual therapy (83711), Neuromuscular re-education (77427), Self-half-way management (83526), Orthotics management and training (91257,68991), Paraffin Bath (78930), Fluidotherapy (68482) PLAN FOR NEXT VISIT: Progress per EPL [...] 0 cm TREATMENT: Therapeutic Exercise: 1: Reviewed [facility] EPL repair protocol - MCP active flexion [...] performance and compliance. Patient education as noted. Self-Senior Living Management: 1: Reviewed diagnosis, stages of protocol [...] 1615 CAMILL[address] Elizabeth documented in this encounter [facility] [place] 10-26-2023 Note HNO ID: [id number] Author: SOCO SUH OTR/L Service: ? Author [...] orthosis fabrication, Prefabricated orthosis fitting, Therapeutic exercise (64049), Therapeutic activities (65631), Manual therapy (91166), Neuromuscular re-education (32111), Self-half-way management (31612), Orthotics management and training (40555,39396), Paraffin Bath (29895), Fluidotherapy (51948) PLAN FOR NEXT VISIT: Progress per EPL [...] was used in selection of appropriate interventions. Self-Senior Living Management: 1: Reviewed diagnosis, stages of protocol [...] based on cl (more content not included)... [facility] 10-26-2023 History of Presen t illness Narrative [...] orthosis fabrication, Prefabricated orthosis fitting, Therapeutic exercise (67323), Therapeutic activities (31387), Manual therapy (50015), Neuromuscular re-education (32772), Self-half-way management (74809), Orthotics management and training (14350,88401), Paraffin Bath (00848), Fluidotherapy (39921) PLAN FOR NEXT VISIT: Progress per EPL [...] (cm): 0 cm TREATMENT: Therapeutic Exercise: 1: [facility] EPL repair protocol - MCP active flexion [...] was used in selection of appropriate interventions. Self-Senior Living Management: 1: Reviewed diagnosis, stages of protocol [...] VICTOR MANUEL Almaguer,CHT documented in this encounter [facility] 10-26-2023 Note HNO ID: [id number] Author: ANKUSH OROZCO JR, MD Service: ? [...] in this document, created by the medical apparatus model maker for me, accurately reflects the services I personally performed and the decisions made by me. I have reviewed and approved this document for accuracy. Ankush Orozco MD Please note: This note has been produced using speech recognition software and may contain errors related to that system including grammar, punctuation, spelling, gender and words and phrases that may be inappropriate. [facility] 10-26-2023 History of Presen t illness Narrative [...] Scribe Attestation: By signing my name below, [email or web address], Johana Camarillo MA, attest that this documentation has been prepared under the direction and in the presence of Ankush Orozco Jr., MD. Electronically Signed: Johana Camarillo MA, Scribe. October 26, 2023 1:48 PM. Clinician Attestation Statement: The information in this document, created by the medical apparatus model maker for me, accurately reflects the services I personally performed and the decisions made by me. I have reviewed and approved this document for accuracy. Ankush Orozco MD Please note: This note has been produced using speech recognition software and may contain errors related to that system including grammar, punctuation, spelling, gender and words and phrases that may be inappropriate. documented in this encounter [facility] 10-18-2023 Note HNO ID: [id number] Author: BRAD DELATORRE OT/Lizet Service: ? Author Type: Occupational Therapist Type: Progress Notes Filed: 10/18/2023 15:16 Note Text: Episode Visit Count: 1 Therapist That Will Accept/Oversee The Plan Of Care: GLORIA Elizabeth/Lizet, CHT Start of Care Date: 10/18/23 Plan of Care Certification Date: 10/18/23 Patient Identified by Name and Date of : Yes [facility] OCCUPATIONAL THERAPY EVALUATION [...] of proper wear/care. 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 [facility] 10-18-2023 History of Presen t illness Narrative Episode Visit Count: 1 Therapist That Will Accept/Oversee The Plan Of Care: GLORIA Elizabeth/Lizet, CHT Start of Care Date: 10/18/23 Plan of Care Certification Date: 10/18/23 Patient Identified by Name and Date of : Yes [facility] OCCUPATIONAL THERAPY EVALUATION [...] of proper wear/care. 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 . Skilled [...] [address] [place] documented in this encounter [facility] 10-14-2023 Note HNO ID: [id number] Author: MIKKI TRACY RN Service: ? Author Type: Registered Nurse Type: Nursing Progress Note Filed: 10/14/2023 16:36 Note Text: Pt. Instructed to monitor BP at home and notify his primary if remains high per Dr. Orozco [facility] 10-14-2023 Note HNO ID: [id number] Author: MIKKI TRACY RN Service: ? Author Type: Registered Nurse Type: Nursing Progress Note Filed: 10/14/2023 16:35 Note Text: [facility] HNO ID: [id number] Author: MIKKI TRACY RN Service: ? Author Type: Registered Nurse Type: Nursing Progress Note Filed: 10/14/2023 16:35 Note Text: Rachid Bender [id number] Patient dressed self Mikki Tracy RN [facility] 10-12-2023 Note HNO ID: [id number] Author: ANKUSH OROZCO JR, MD Service: ? [...] in this document, created by the medical apparatus model maker for me, accurately reflects the services I personally performed and the decisions made by me. I have reviewed and approved this document for accuracy. Ankush Orozco MD Please note: This note has been produced using speech recognition software and may contain errors related to that system including grammar, punctuation, spelling, gender and words and phrases that may be inappropriate. [facility] 10-12-2023 History of Presen t illness Narrative [...] in this document, created by the medical apparatus model maker for me, accurately reflects the services I personally performed and the decisions made by me. I have reviewed and approved this document for accuracy. Ankush Orozco MD Please note: This note has been produced using speech recognition software and may contain errors related to that system including grammar, punctuation, spelling, gender and words and phrases that may be inappropriate. documented in this encounter [facility] 10-11-2023 Telephone encounter Note ----- Message from [...] Laceration of thumb tendon Reason for the call/escalation:[place] ER F/U, ER doctor spoke to Dr. [...] than patient: Margaret mendiola Best contact number: [phone] Thank you, Rachell Flores October 11, 2023 8:04 AM [facility] 05-13-2024 Miscellaneous Notes ----- Message from Rachell [...] Laceration of thumb tendon Reason for the call/escalation:[place] ER F/U, ER doctor spoke to Dr. [...] than patient: Margaret mendiola Best contact number: [phone] Thank you, Rachell Flores October 11, 2023 8:04 AM documented in this encounter [facility] Evaluation note Diagnosis Laceration of left thumb [...] subsequent encounter- Primary [facility] noteNo assessment information availableWKind[facility] Work Phone: Reason for referral (narrative)No reason for referral information availableWKindred Hospital [place] Work Phone: Summary Purpose Family History No Family History Records FoundNo Family History Records FoundNo Family History Records FoundNo Family History Records Found Advance Directives No Advanced Directives Records Found Advance Directive Response Recorded Date/ Time Do you have a Healthcare Power of Camp Dining Room Attendant? No March 01, 2025 7:03pm Chief Complaint and Reason for Visit Chief Complaint Admit Date HTN March 01, 2025 4: 49pm Additional Source Comments (unrecognized sect ion and content) No Status Records FoundNo Status Records FoundNo Status Records FoundNo Status Records Found INFORMATION SOURCE (unrecogn ized section and content) DATE CREATED AUTHOR 08/12/2020 [facility] DATE CREATED AUTHOR AUTHOR'S ORGANIZ ATION 10/03/2020 [facility] DATE CREATED AUTHOR AUTHOR'S ORGANIZ ATION 01/16/2024 [facility] DATE CREATED AUTHOR AUTHOR'S ORGANIZ ATION 03/13/2025 [facility] Source Comments (unrecognize d section and content) In the event this informatio n is protected by the Federal Confidentiality of Alcohol and Drug Abuse Patient Records regulations: The Federal rules restrict any use of the information to criminally investigate or prosecute any alcohol or drug abuse patient.[facility] the event this information is protected by the Federal Confidentiality of Alcohol and Drug Abuse Patient Records regulations: The Federal rules restrict any use of the information to criminally investigate or prosecute any alcohol or drug abuse patient.[facility] the event this information is protected by the Federal Confidentiality of Alcohol and Drug Abuse Patient Records regulations: The Federal rules restrict any use of the information to criminally investigate or prosecute any alcohol or drug abuse patient.[facility] the event this information is protected by the Federal Confidentiality of Alcohol and Drug Abuse Patient Records regulations: The Federal rules restrict any use of the information to criminally investigate or prosecute any alcohol or drug abuse patient.[facility] the event this information is protected by the Federal Confidentiality of Alcohol and Drug Abuse Patient Records regulations: The Federal rules restrict any use of the information to criminally investigate or prosecute any alcohol or drug abuse patient.[facility] the event this information is protected by the Federal Confidentiality of Alcohol and Drug Abuse Patient Records regulations: The Federal rules restrict any use of the information to criminally investigate or prosecute any alcohol or drug abuse patient.[facility] the event this information is protected by the Federal Confidentiality of Alcohol and Drug Abuse Patient Records regulations: The Federal rules restrict any use of the information to criminally investigate or prosecute any alcohol or drug abuse patient.[facility] the event this information is protected by the Federal Confidentiality of Alcohol and Drug Abuse Patient Records regulations: The Federal rules restrict any use of the information to criminally investigate or prosecute any alcohol or drug abuse patient.[facility] the event this information is protected by the Federal Confidentiality of Alcohol and Drug Abuse Patient Records regulations: The Federal rules restrict any use of the information to criminally investigate or prosecute any alcohol or drug abuse patient.[facility] Reason for Visit (unrecogniz ed section and content) Reason Comments Occupational Therapy Specialty Diagnoses / Procedures Referred By Contac t Referred To Contact Occupational Therapy / OCCUPATIONAL THERAPY Diagnoses post op hand Procedures NEW RS OT HAND Ankush Orozco Jr., MD [address] [address] Brad Delatorre, OT/L Referral ID Status Reason Start Date Expiration Date V isits Requested Visits Authorized [id number] Authorized 10/18/2023 05/30/2024 40 40 Reason Comments ER F/U [place] 10/09 Reason Comments New Reason Comments OT EVAL Referral ID Status Reason Start Date Expiration Date V isits Requested Visits Authorized [id number] Pending Review 10/18/2023 05/30/2024 1 1 Reason Comments Post Op Reason Comments Established Patient Post Op Care Teams (unrecognized sec tion and content) Stone Planer Relationship Specialty Start [place] [address] [place] [address] PCP - General Family Medicine 06/20/18 Stone Planer Relationship Specialty Start [place] [address] [place] [address] PCP - General Family Medicine 06/20/18 Stone Planer Relationship Specialty Start [place] [address] [place] [address] PCP - General Family Medicine 06/20/18 Stone Planer Relationship Specialty Start [place] [address] [place] [address] PCP - General Family Medicine 06/20/18 Stone Planer Relationship Specialty Start [place] [address] [place] [address] PCP - General Family Medicine 06/20/18 Stone Planer Relationship Specialty Start [place] [address] [place] [address] PCP - General Family Medicine 06/20/18 Team [...] BE BASED ON THE PRIMARY CLINICAL RECORDS. [employer] provides no warranty or guarantee of the accuracy or completeness of information in this document.
[2025-03-15 18:31] LABS: Anion Gap 13 (5-15); BUN 25 mg/dL (4-19); BUN/Creat Ratio 24.0 RATIO (10-20); Calcium,Total 9.6 mg/dL (7.6-11.0); Carbon Dioxide 26.1 mmol/L (21.0-32.0); Chloride 96 mmol/L (98-108); Glucose 204 mg/dL (70-99); Potassium 4.2 mmol/L (3.3-5.1)
== END | disposition home or self-care (01) ==
LOC: MTLAB 16:46
PROVIDERS: PCP Family Medicine; Referring Provider Family Medicine; Visit Provider Family Medicine
DX: R94.4 Abnormal results of kidney function studies (principal)
CPT/HCPCS: 36415; 80048